=== PATIENT | male | born 1945 | race Caucasian/White ===

== ENCOUNTER 2017-09-11 14:26 | Outpatient (CLI) | payer MEDICARE, BC ==
--- NOTE | 2017-09-11 14:41 | RAD ---
THREE VIEWS OF THE RIGHT WRIST: Date: 09-11-17 History: Pain and swelling. FINDINGS: There is severe degenerative change at the radiocarpal joint with joint space narrowing, subchondral sclerosis and osteophyte formation. There is degenerative change at the first carpal metacarpal joint as well as the distal radial ulnar joint. No displaced fracture or dislocation is seen. There is christophe edwin tilting of the distal radius which may represent a remote a fracture. IMPRESSION: Prominent degenerative change with no displaced fracture or dislocation. If the study was performed i n the setting of trauma and symptoms persist, follow up 7-10 days with dedicated scaphoid views advis ed. POS: [facility]
== END 2017-09-11 14:27 | disposition home or self-care (01) ==
LOC: RAD-FRANK 14:26
PROVIDERS: ATTEND Nurse Practitioner Family
DX: M25.531 Pain in right wrist (principal); M19.031 Primary osteoarthritis, right wrist

== ENCOUNTER 2017-09-25 13:36 | Outpatient (CLI) | payer MEDICARE ==
--- NOTE | 2017-09-25 14:03 | RAD ---
RIGHT WRIST RADIOGRAPH 3 VIEWS: COMPARISON: 09/11/17. CLINICAL HISTORY: Pain, edema. FINDINGS: Redemonstration of prominent degenerative change in the right wrist with joint space loss and osteoph ytosis. There are scattered degenerative cysts. There is a stable heterotopic density interposed be tween the 1st carpal row and the ulnar styloid. No interval acute process is identified. IMPRESSION: Stable appearance of the right wrist without interval displaced fracture. POS: [facility]
== END 2017-09-25 13:37 | disposition home or self-care (01) ==
LOC: RAD-FRANK 13:36
PROVIDERS: ATTEND Nurse Practitioner Family
DX: M25.531 Pain in right wrist (principal)

== ENCOUNTER 2017-10-31 11:50 | Outpatient (CLI) | payer MEDICARE, BC ==
--- NOTE | 2017-10-31 13:46 | ULT ---
RENAL ULTRASOUND: HISTORY: Difficulty urinating. History of benign prostate hyperplasia. FINDINGS: Real-time imaging of the right and left kidneys was performed. The right kidney measures 11.9 and th e left kidney 11.5 cm in size. There is an approximately 2.2 cm right renal cyst present. The bladd er shows a prevoid volume of 272 cc. The postvoid volume is actually calculated at slightly greater than 300 cc. Bilateral ureteral jets are noted. IMPRESSION: 1. A 2.2 x 2.5 cm right renal cyst. No obstruction of either kidney. 2. Marked postvoid residual. POS: [facility]
== END 2017-10-31 11:51 | disposition home or self-care (01) ==
LOC: ULT 11:50
PROVIDERS: ATTEND Urology
DX: N40.1 Benign prostatic hyperplasia with lower urinary tract symptoms (principal); Z87.440 Personal history of urinary (tract) infections; N28.1 Cyst of kidney, acquired
CPT/HCPCS: 76770

== ENCOUNTER 2018-07-23 08:11 | Outpatient (CLI) | payer MEDICARE, BC ==
--- NOTE | 2018-07-23 09:15 | RAD ---
FRONTAL VIEW ABDOMEN KUB: INDICATION: Abdominal bloating with pain and distention. FINDINGS: Upper abdomen is not visualized for comment. There is moderate retained fecal material of the colon. The imaged bowel gas pattern is nonobstructed. There is a round calcification in the left pelvis w hich may relate to phlebolith. Punctate density of the mid to lower left abdomen is not further loca lized. There is osseous degenerative change. IMPRESSION: 1. Moderate retained fecal material of the colon. 2. Imaged bowel gas pattern does not reveal evidence of obstruction. POS: [facility]
== END 2018-07-23 08:12 | disposition home or self-care (01) ==
LOC: RAD-FRANK 08:11
PROVIDERS: ATTEND Nurse Practitioner Family
DX: R14.0 Abdominal distension (gaseous) (principal); K59.00 Constipation, unspecified
CPT/HCPCS: 74018

== ENCOUNTER 2019-06-30 14:29 | Outpatient (CLI) | payer MEDICARE, BC ==
--- NOTE | 2019-06-30 15:49 | RAD ---
SUPINE ABDOMEN: 06/30/19 HISTORY: Abdominal pain. COMPARISON: 07/23/18 abdominal film. Large amount of stool throughout the colon suggests constipation. Small bowel gas pattern unremarkabl e. No mass effect. IMPRESSION: Large volume stool throughout the colon. POS: [facility]
== END 2019-06-30 14:30 | disposition home or self-care (01) ==
LOC: RAD-FRANK 14:29
PROVIDERS: ATTEND Nurse Practitioner Family
DX: R10.9 Unspecified abdominal pain (principal); R19.5 Other fecal abnormalities
CPT/HCPCS: 74018

== ENCOUNTER 2019-07-23 16:19 | Inpatient (IN) | payer MEDICARE, BC ==
[~2019-07-23 16:19] MED LIST: Iopamidol-370 76% 500 ML 1 ML ONE
[2019-07-23] MEDS ORDERED: Acetaminophen 500 MG TAB PO PRN (17:44)
[2019-07-23 18:48] VITALS: BMI 25.4
--- NOTE | 2019-07-23 20:34 | CT ---
CHEST CT WITH CONTRAST ABDOMEN CT WITH CONTRAST PELVIS CT WITH CONTRAST 07/23/19 HISTORY: Rectal cancer. Evaluate for obstruction. Generalized abdominal pain and bloating. FINDINGS: CHEST CT: Lower neck: No mass, lymphadenopathy. Visualized thyroid gland is unremarkable. Mediastinum: No mass, lymphadenopathy or hematoma. Heart: Normal size. No significant pericardial fluid. Aorta: The thoracic and abdominal aorta have a normal caliber. No periaortic fat stranding. Trachea and central bronchi: Patient. Pleural spaces: No pleural effusion. Pneumothorax: None. Right lung: No suspicious masses or consolidation. Left lung: No masses or consolidation. ABDOMEN CT: Portal vein is patent. Unremarkable gallbladder. Liver, spleen, pancreas and adrenal glands have appropriate attenuation and enhancement. No gastric, retrocrural or periportal lymphadenopathy. Symmetric enhancement of the kidneys. Bilaterally, No obstructive uropathy. Incompletely evaluated is odense focus in the medial aspect of the right renal cortex measuring 1.1 x 1.3 cm. Gastric mucosa, duodenum, and multiple small bowel loops are identified. Small bowel loops are at the upper limits of normal proximally. The distal small bowel loops are decompressed and have a normal c aliber. Ileocecal junction is unremarkable. Normal caliber appendix. Cecum, ascending colon, transve rse colon, descending colon, and sigmoid colon do not appear to be distended. There is mucosa thicken ing and irregularity involving the distal sigmoid colon and rectum. There is adjacent fat stranding. CT PELVIS: Unremarkable prostate gland and urinary bladder. There is mild stranding of the perirectal fat. There do appear to be mildly prominent perirectal lymph nodes. Histotechnologist Supervisor enlarged lymph node appears to be approximately 0.8 cm. There is enlarged presacral lymph node measuring 0.6 x 0.6 cm. There are no lytic or blastic lesions in the osseous structures. IMPRESSION: 1. No evidence of bowel obstruction. There are a few scattered nonspecific upper normal caliber proximal small bowel loops. 2. Mucosa thickening involving the distal sigmoid colon and rectum compatible with patient's his tory of rectal cancer. There do appear to be mildly enlarged perirectal and presacral lymph nodes. P ossible solid mass in the medial aspect of the right kidney, incompletely evaluated. Renal mass rudy col CT or abdomen MRI is recommended. POS: [facility]
--- NOTE | 2019-07-23 22:16 | RAD ---
PA AND LATERAL VIEWS OF THE CHEST: 07/23/19 HISTORY: Rectal cancer. FINDINGS: The heart size is normal. No focal areas of consolidation, pneumothoraces, mass or pleural effusions are see with mild compression of a mid thoracic vertebral body. IMPRESSION: No acute process. POS: [facility]
[2019-07-24] MEDS: Enoxaparin Sodium 40 MG/0.4 ML SYRINGE SC SCH (07:53)
[2019-07-24] MEDS ORDERED: FLU VACC TS2019-20(65YR UP)/PF 180 MCG/0.5 ML SYRINGE IM ONE (09:00)
[2019-07-24] MEDS ORDERED: Iron Sucrose Complex 500 MG in Sodium Chloride 0.9% 250 ML 250 ML IVPB SCH (12:15)
[2019-07-24] MEDS ORDERED: Iron, Sodium Ferric Gluconate 250 MG in Sodium Chloride 0.9% 100 ML IVPB SCH ×2 (12:30)
--- NOTE | 2019-07-24 16:58 | CT ---
CT ABDOMEN WITH AND WITHOUT IV CONTRAST: 07/24/19 HISTORY: Right renal mass. FINDINGS: Comparison made with exam of 07/23/19. The 13 mm partially exophytic mass arising from the posterior cortex of the right kidney demonstrates heterogeneous postcontrast enhancement and is a suspicious finding. No calculi seen in the kidneys o r visualized portions of the ureters. No hydroureteronephrosis seen. There is normal contrast excret ion into the pelvicalyceal systems and ureters on both sides. The left kidney is normal. There is vi carious excretion of contrast into the gallbladder. The contrast from the small bowel has moved into the colon. The remainder of the exam is otherwise stable since 07/23/19. IMPRESSION: 13 mm heterogeneously enhancing right renal mass is suspicious for malignancy. POS: [facility]
--- NOTE | 2019-07-24 18:43 | CON ---
DATE OF CONSULTATION: REASON FOR CONSULTATION: Rectal cancer. HISTORY OF PRESENT ILLNESS: Mr. Pérez is a pleasant 74-year-old gentleman, who over the past month, has had some abdominal cramping and diarrhea. He was seen by Dr. Islas and underwent a colonoscopy yesterday in her clinic. He was noted to have a partially-obstructing tumor in the midrectum, 7 cm from the anal verge. The mass was circumferential, infiltrated, and ulcerated. Biopsies were taken and are currently pending. He was then sent to Dr. Gutierrez's office for evaluation and subsequently, admitted here for a partially-obstructing mass. The patient underwent a chest, abdomen, and pelvis CT, which showed no evidence of bowel obstruction. There was mucosal thickening of the distal sigmoid colon and rectum, compatible with the colonoscopy findings. There were some mildly enlarged perirectal and presacral lymph nodes, the largest measuring is 0.8 cm. He also had a focus in the right kidney that was incompletely evaluated. Review of medical records shows a renal ultrasound done in 2018 and characterized this is a right renal cyst. He has lost about 10 pounds over the last several months. He has frequent stools with abdominal cramping and gas. Denies any chest pain or shortness of breath. PAST MEDICAL HISTORY: Diabetes mellitus, type 2. PAST SURGICAL HISTORY: None. ALLERGIES: NO KNOWN DRUG ALLERGIES. HOME MEDICATIONS: 1. Glyburide 5 mg daily. 2. Atorvastatin 10 mg daily. FAMILY HISTORY: No history of colon cancer. SOCIAL HISTORY: , lives with his in [place]. No alcohol, tobacco, or illicit drug use. REVIEW OF SYSTEMS: A 10-point review of systems is negative except for noted in HPI. PHYSICAL EXAMINATION: VITAL SIGNS: Temperature is 97.7, pulse is 53, respiratory rate is 14, blood pressure is 115/63, and he is 97% on room air. GENERAL: This is a well-developed, well-nourished male, in no acute distress. He is hard of hearing. NECK: Supple. CV: Regular rate and rhythm. LUNGS: Clear. ABDOMEN: Soft and nontender. Bowel sounds are positive. EXTREMITIES: No clubbing, cyanosis, or edema. SKIN: No rash. HEMATOLOGIC: No petechiae or purpura. NEUROLOGIC: Nonfocal. PSYCHIATRIC: He is alert, oriented and appropriate. PERTINENT LABORATORY AND DIAGNOSTIC DATA: His creatinine is 1.34, GFR is 52. Recent ferritin is less than 2, TIBC is 439. CEA is 5.43. B12 and folate are normal. His last CBC dated 07/13 showed a hemoglobin of 8.5 and microcytic anemia. Radiology per HPI. ASSESSMENT: 1. Circumferential partially-obstructive rectal mass, consistent with malignancy. 2. Microcytic anemia secondary to gastrointestinal bleed from rectal mass. DISCUSSION: The patient has been admitted for further staging and workup. It appears on the CT scan that he has no metastatic disease. He may need a PET scan in the outpatient setting. Clearly, he has microcytic anemia based on prior labs. I will give him a IV iron today as if he starts oral iron, he will have constipation issues and aggravate his symptoms. He remains on a clear liquid diet. Dr. Gutierrez is managing the patient to determine if the patient needs a diverting colostomy given his partial obstruction. Chemotherapy and radiation were discussed with the patient and family at bedside. They understand the plan. Recheck his CBC in the a.m. and we will follow his hospital course and ultimately, he will be seen in the clinic where he will begin chemoradiation. Thank you for the consult. Job ID: [id number]
--- NOTE | 2019-07-24 19:06 | PRG ---
DATE OF SERVICE: 07/24/2019 Jan Pérez is doing well today. He is tolerating his liquids. He has not had any vomiting. His CEA level is 5.4. CAT scan of the chest, abdomen, and pelvis is unremarkable without metastatic disease except for a 1.5 cm suspicious exophytic mass posterior cortex right kidney. A dedicated renal CT scan was performed substantiating this. The patient has seen Dr. Hernandez in the past and will arrange outpatient followup with Dr. Conrad for this exophytic mass of the right kidney and this will be done as an outpatient. Hence, the patient's echocardiogram is pending. I discussed with the patient these findings and also the patient has discussed with Carmenza Moore, PHYLLIS, Oncology. Plan is for another hour infusing tomorrow and then discharge home on a soft low-fiber diet as he has high-grade partially obstructing rectal tumor. We will arrange outpatient neoadjuvant therapy beginning in early next week, get him to see Dr. Murguia early next week as well as Dr. Bowman to arrange chemoradiation therapy, neoadjuvant therapy. Anticipate discharge home tomorrow. Job ID: [id number]
[2019-07-25 04:38] LABS: Eosinophils 3 % (0-10); Hemoglobin 7.7 g/dL (14.0-18.0); Lymphocytes 73 % (21-51); MDiff Complete? YES; Mean Corpuscular HGB CONC 30.5 g/dL (32.0-36.0); Mean Corpuscular Hemoglobin 20.7 pg (27.0-31.0); Mean Corpuscular Volume 67.6 fL (78.0-98.0); Mean Platelet Volume 10.5 fL (7.4-10.4); Microcytosis MODERATE=15-30 cells (100X) (0-5/hpf); Monocytes 2 % (0-10); Neutrophil 22 % (42-75); Platelet Count 154 thou/uL (130-400); Platelet Morphology Comment Appears Adequate; Red Blood Cell (RBC) Count 3.74 mill/uL (4.70-6.10); White Blood Cell (WBC) Count 7.8 thou/uL (4.8-10.8)
[2019-07-25] MEDS: Enoxaparin Sodium 40 MG/0.4 ML SYRINGE SC SCH (08:32)
[2019-07-25 11:05] VITALS: BP 109/68; TEMP 97.4
--- NOTE | 2019-07-25 15:53 | PRG ---
DATE OF SERVICE: 07/25/2019 Jan Pérez is doing well today. The family is a little put off that they were expecting the iron infusion treatment today. There was miscommunication with Carmenza Moore MP. Apparently, iron therapy was not scheduled today. By the time, I walked into the room, the patient is dressed, IV is out. He is anticipating discharge home. He has a CAT scan of chest, abdomen, and pelvis demonstrated 1.5 cm exophytic posterior right renal cortex mass for which he will follow up with Dr. Conrad. I have already communicated with Dr. Murguia, who will see him as an outpatient. We will have communicated with Dr. Bowman in my office about arranging appointment as soon as possible to initiate radiation therapy. The has a past experience with radiation therapy and is somewhat aware of the radiation therapy protocols. The patient is not totally obstructed. We will try to avoid ostomy. Plan is to discharge home. Echocardiogram is normal. Job ID: [id number]
--- NOTE | 2019-07-25 16:02 | DIS ---
DATE OF ADMISSION: 07/23/2019 DATE OF DISCHARGE: 07/25/2019 DISCHARGE DIAGNOSIS: Rectal cancer. Dr. Islas performed colonoscopy on 07/23, could not pass the scope beyond the rectal mass. Biopsies obtained. The patient however tolerated the bowel prep and radiologically there is not a complete obstruction, although he has lost 10 pounds in the last 3 months. The patient is admitted to expedite his workup, consider if he needs diversion for his obstructive symptoms. The patient was admitted from my office. He underwent CT scan of the abdomen and pelvis as well as chest and there is no evidence of metastatic disease. There is no evidence of metastatic lymphadenopathy. He had a rectal tumor mass. The patient's CEA level is 5.4. His hemoglobin is 7.7. He was given intravenous iron after Carmenza Moore, nurse practitioner saw him. He had an echocardiogram and this is essentially unremarkable, normal ejection fraction, no valvular disease. The patient's CEA level is 5.4. Discussion with the patient revealed that he did not think we need an ostomy at this time due to his high-grade partial obstruction. He will expedite neoadjuvant therapy. I have talked to Dr. Murguia who will see him as soon as possible this week. We will place a MediPort as an outpatient if necessary. He will see Dr. Conrad for a 1.5 cm right renal posterior cortex suspicious mass seen on CAT scan. He had an initial CAT scan and pelvis than a dedicated renal protocol CAT scan. He has seen Dr. Mcguire in the past for prostate problems. The patient was advised to continue low-fiber GI soft diet for which a dietary consult was arranged prior to discharge. He will resume his home medications, diabetic medications, diabetic soft diet. Job ID: [id number]
--- NOTE | 2019-07-25 16:27 | EKG ---
Test Reason : Blood Pressure : / mmHG Vent. Rate : 084 BPM Atrial Rate : 084 BPM P-R Int : 216 ms QRS Dur : 096 ms QT Int : 412 ms P-R-T Axes : 074 -34 026 degrees QTc Int : 486 ms Sinus rhythm with Premature supraventricular complexes Left axis deviation Abnormal ECG No previous ECGs available Confirmed by DR. Margarito HATHAWAY ([id number]) on 07/25/2019 4:27:09 PM Referred By: DWAYNE Confirmed By:DR. Margarito HATHAWAY
== END 2019-07-25 15:33 | disposition home or self-care (01) | DRG 375 ==
LOC: SURG A 16:19 → UNDOADMIN 16:19 → SURG B 16:25
PROVIDERS: ADMIT Specialist; ATTEND Specialist
DX: C20 Malignant neoplasm of rectum (principal); K92.2 Gastrointestinal hemorrhage, unspecified; D63.0 Anemia in neoplastic disease; E11.9 Type 2 diabetes mellitus without complications; Z79.84 Long term (current) use of oral hypoglycemic drugs; Z79.899 Other long term (current) drug therapy
CPT/HCPCS: 36415; 36416; 71046; 71260; 74170; 74177; 82378; 82565; 84134; 85025; 90471; 90662; 93005; 93010; 93306; G0008; J1650; J2916; J3490; Q9967

== ENCOUNTER 2019-07-27 05:32 | Day surgery (SDC) | payer MEDICARE, BC ==
[2019-07-26 13:34] VITALS: BMI 24.1
[2019-07-27] MEDS ORDERED: Fentanyl 100 MCG/2 ML VIAL ONE (06:31)
[2019-07-27] MEDS ORDERED: Lidocaine 2% PF 5 ML VIAL ONE (06:36)
[2019-07-27] MEDS ORDERED: Bupivacaine/Epinephrine 0.5% 10 ML VIAL ONE (06:36)
--- NOTE | 2019-07-27 07:45 | RAD ---
Chest one view HISTORY: Mediport placement. COMPARISON: 07/23/2019. FINDINGS: Cardiac silhouette is magnified by projection. Pulmonary vasculature is unremarkable. Media stinum is midline with a new left subclavian Mediport catheter. Tip overlies the cavoatrial junction. No evidence of pneumothorax. No lobar consolidation. Small amount of contrast material philipp ins within the splenic flexure of the colon. IMPRESSION: New left subclavian Mediport is in good radiographic position. No evidence of complicatio n.
--- NOTE | 2019-07-27 08:45 | OP ---
DATE OF PROCEDURE: 07/27/2019 PREOPERATIVE DIAGNOSIS: Rectal cancer in need of antineoplastic chemotherapy access. POSTOPERATIVE DIAGNOSIS: Rectal cancer in need of antineoplastic chemotherapy access. PROCEDURES PERFORMED: Placement of left subclavian vein low-profile MediPort and fluoroscopy use. ANESTHESIA: Intravenous sedation and local 0.5% Marcaine with epinephrine, 30 mL mixed with 2% Xylocaine 10 mL. DESCRIPTION OF PROCEDURE: The patient was taken to the operating room where under intravenous sedation, neck and chest were clipped of hair, prepared with ChloraPrep and draped in routine fashion. Local anesthetic mixture was infiltrated into the skin and subcutaneous tissue about the operative site. Trocar catheter was cannulated in the subclavian vein in infraclavicular approach. The J-wire threaded, trocar catheter removed. Skin site enlarged sharply, carried down through skin and subcutaneous tissue, creating a subcutaneous pocket with blunt and sharp dissection using cautery for hemostasis. Dilator and Peel-Away sheath placed with J-wire in superior vena cava. Dilator and J-wire removed. Catheter placed through the Peel-Away sheath and Peel-Away sheath removed. Fluoroscopically, catheter tip was placed in optimal position tailored to length and connected to the MediPort, secured in the pocket with interrupted sutures x2 of 3-0 Prolene. Subcutaneous tissue was approximated with 3-0 Monocryl, skin with subdermal 4-0 Monocryl and MediPort accessed with a Collado needle, aspirating blood and flushed with heparinized saline solution. Final fluoroscopic images revealed good line and catheter placement. Job ID: [id number]
[2019-07-27] MEDS ORDERED: PROPOFOL 200 MG/20 ML VIAL ONE (10:05)
== END 2019-07-27 08:40 | disposition home or self-care (01) ==
LOC: SDC 05:32
PROVIDERS: ATTEND Specialist
PROC: 0JH63WZ Insertion of Totally Implantable Vascular Access Device into Chest Subcutaneous Tissue and Fascia, Percutaneous Approach (ICD-10-PCS; principal; 2019-07-27)
DX: C20 Malignant neoplasm of rectum (principal); E11.9 Type 2 diabetes mellitus without complications; M19.90 Unspecified osteoarthritis, unspecified site; K52.9 Noninfective gastroenteritis and colitis, unspecified; Z79.84 Long term (current) use of oral hypoglycemic drugs; Z79.899 Other long term (current) drug therapy
CPT/HCPCS: 36561; 71045; 80053; 82378; 82728; 83540; 83550; C1788; 36415; J0690; J1642; J2001; J2704; J3010; J3490

== ENCOUNTER 2019-09-17 06:10 | Outpatient (CLI) | payer MEDICARE, BC ==
[2019-09-17 12:10] LABS: Hemoglobin 12.2 g/dL (14.0-18.0); Mean Corpuscular HGB CONC 32.1 g/dL (32.0-36.0); Mean Corpuscular Hemoglobin 26.9 pg (27.0-31.0); Mean Corpuscular Volume 83.7 fL (78.0-98.0); Mean Platelet Volume 4.7 fL (7.4-10.4); Platelet Count 143 thou/uL (130-400); RBC Distribution Width 31.5 % (11.5-14.5); Red Blood Cell (RBC) Count 4.53 mill/uL (4.70-6.10); White Blood Cell (WBC) Count 4.9 thou/uL (4.8-10.8)
[2019-09-17 12:37] LABS: Anion Gap 11 mmol/L (10-20); BUN (Urea Nitrogen) 17 mg/dL (8.4-25.7); Calc. Creatinine Clearance 0 mL/min (70-130); Calcium 10.3 mg/dL (7.8-10.44); Carbon Dioxide 27 mmol/L (23-31); Chloride 107 mmol/L (98-107); Estimated GFR-MDRD 58; Glucose 94 mg/dL (83-110); Sodium 141 mmol/L (136-145)
[2019-09-17 12:49] LABS: Bacteria/HPF None Seen HPF (None Seen); Bilirubin Negative (Negative); Blood, Urine 2+ (Negative); Clarity Clear (Clear); Glucose, Urine (Dipstick) Normal (Negative); Leukocyte 75 Leu/uL (Negative); Nitrite Negative (Negative); Protein, Urine (Dipstick) 10 mg/dL (Neg-Trace); RBC/HPF 21-50 HPF (0-3); Urobilinogen Normal mg/dL (Less than 2)
== END 2019-09-17 06:11 | disposition home or self-care (01) ==
LOC: LABBT 06:10
PROVIDERS: ATTEND Urology
DX: Z01.818 Encounter for other preprocedural examination (principal); N40.1 Benign prostatic hyperplasia with lower urinary tract symptoms
CPT/HCPCS: 80048; 81001; 85027; 87086; 93005; 93010

== ENCOUNTER 2019-09-28 06:03 | Day surgery (SDC) | payer MEDICARE, BC ==
[2019-09-17 10:58] VITALS: BMI 24.1
[2019-09-28] MEDS ORDERED: Levofloxacin 500 mg/D5W 100 ml Premix Bag ONE (07:37)
[2019-09-28] MEDS ORDERED: Fentanyl 100 MCG/2 ML VIAL ONE (08:47)
[2019-09-28] MEDS ORDERED: Midazolam HCl 2 mg/2 ml Vial ONE (08:47)
[2019-09-28] MEDS ORDERED: Oxybutynin 5 MG TAB ONE (10:02)
[2019-09-28] MEDS ORDERED: Ketorolac Tromethamine 30 MG/ML VIAL ONE (10:02)
[2019-09-28] MEDS ORDERED: Phenazopyridine HCl 97.5 MG TABLET ONE (10:03)
[2019-09-28] MEDS ORDERED: Lidocaine 1% PF 5 ML VIAL ONE (10:42)
[2019-09-28] MEDS ORDERED: PROPOFOL 200 MG/20 ML VIAL ONE (10:42)
[2019-09-28] MEDS ORDERED: Sodium Chloride 0.9% 100 ML ONE (11:18)
--- NOTE | 2019-09-28 15:34 | OP ---
DATE OF PROCEDURE: 09/28/2019 PREOPERATIVE DIAGNOSIS: Enlarged prostate with lower urinary tract symptoms, urinary retention. POSTOPERATIVE DIAGNOSIS: Enlarged prostate with lower urinary tract symptoms, urinary retention. ANESTHESIA: TIVA. COMPLICATIONS: None. SPECIMEN: None. DESCRIPTION OF PROCEDURE: After informed consent, the patient was taken to the operating room, transferred to the table under his own power. Anesthesia was established. A time-out was performed showing the correct patient, site, and procedure. Preoperative antibiotics were administered. He was prepped and draped in the lithotomy position. A rectal exam was performed showing a 40 g prostate without nodules or induration. I then switched gloves and inserted the 20-Nigerian cystoscope. The bladder was systematically examined, noting moderate trabeculation without mucosal abnormalities or diverticula. The cystoscopy bridge was replaced with the UroLift delivery device. The first treatment site was the patient's left side approximately 2 cm distal to the bladder neck. The distal tip of the delivery device was then angled laterally approximately 20 degrees of this position to compress the lateral lobe. The trigger was pulled, thereby deploying a needle containing the implant through the prostate. The needle was then retracted, allowing one end of the implant to be delivered to the capsular surface of the prostate. The implant was then tensioned to assure capsular seating and removal of slack monofilament. The device was then angled back toward midline and slowly advanced proximally about 3 to 4 mm until cystoscopic verification of the monofilament being centered in the delivery bay. The urethral end piece was then affixed to the monofilament thereby tailoring the size of the implant. Excess filament was then severed. The delivery device was then readvanced into the bladder. This was replaced with the second delivery device, and the same procedure was repeated on the right side near the bladder neck deploying the second implant. Two additional implants, the 3rd and 4th were delivered just proximal to the verumontanum, again one on the right and on the left side of the prostate following the same technique. Cystoscopy was then performed revealing no further obstruction. An excellent anterior channel with the irrigation turned off. At this point, the procedure was completed. Total number of implants used, 4. IMPLANT LOCATION SUMMARY: 1. Implant #1: Left proximal prostatic urethra. 2. Implant #2: Right proximal prostatic urethra. 3. Implant #3: Left distal prostatic urethra proximal to the verumontanum. 4. Implant #4: Right distal prostatic urethra proximal to the verumontanum. CRITERIA MET: The patient with no active UTI. Conservative management has failed and surgical intervention is indicated. Prostate volume 40 g. The patient was then awoken from anesthesia, transferred back to his hospital bed and taken to PACU in stable condition, where he will discharge home upon recovery. Job ID: [id number] [id number]
== END 2019-09-28 11:45 | disposition home or self-care (01) ==
LOC: SDC 06:03
PROVIDERS: ATTEND Urology
PROC: 0T7D8DZ Dilation of Urethra with Intraluminal Device, Via Natural or Artificial Opening Endoscopic (ICD-10-PCS; principal; 2019-09-28)
DX: N40.1 Benign prostatic hyperplasia with lower urinary tract symptoms (principal); R33.8 Other retention of urine; E11.9 Type 2 diabetes mellitus without complications; E78.5 Hyperlipidemia, unspecified; M19.90 Unspecified osteoarthritis, unspecified site; Z79.84 Long term (current) use of oral hypoglycemic drugs; Z79.899 Other long term (current) drug therapy; Z85.048 Personal history of other malignant neoplasm of rectum, rectosigmoid junction, and anus
CPT/HCPCS: C1889; J1642; J1885; J1956; J2250; J3010; J3490

== ENCOUNTER 2019-10-21 06:34 | Outpatient (CLI) | payer MEDICARE, BC ==
[2019-10-21 13:39] LABS: Hemoglobin A1c 5.9 % (4.0-6.0)
[2019-10-21 13:55] LABS: #Basophils 0.1 thou/uL (0.0-0.2); #Eosinphils 0.2 thou/uL (0.0-0.7); #Lymphocytes 2.2 thou/uL (1.20-3.40); #Monocytes 0.3 thou/uL (0.11-0.59); #Neutrophils 2.2 thou/uL (1.40-6.50); %Basophils 1.1 % (0.0-1.0); %Eosinophils 3.1 % (0.0-10.0); %Lymphocytes 45.5 % (21.0-51.0); %Monocytes 6.4 % (0.0-10.0); %Neutrophils 43.9 % (42.0-75.0); Elliptocytes SLIGHT = 2-5 cells (100X) (0-1/hpf); Hemoglobin 13.4 g/dL (14.0-18.0); Large Platelets SLIGHT; MDiff Complete? YES; Mean Corpuscular HGB CONC 32.8 g/dL (32.0-36.0); Mean Corpuscular Hemoglobin 29.9 pg (27.0-31.0); Mean Corpuscular Volume 90.9 fL (78.0-98.0); Mean Platelet Volume 11.2 fL (7.4-10.4); Ovalocytes SLIGHT = 2-5 cells (100X) (0-1/hpf); Platelet Count 158 thou/uL (130-400); Platelet Morphology Comment Appears Adequate; Poikilocytosis SLIGHT = 6-15 cells (100X) (0-5/hpf); Polychromasia SLIGHT = 2-3 cells (100X) (0-2/hpf); RBC Distribution Width 23.3 % (11.5-14.5); Red Blood Cell (RBC) Count 4.49 mill/uL (4.70-6.10); Target Cells SLIGHT = 2-5 cells (100X) (0-1/hpf); Tear Drops SLIGHT = 2-5 cells (100X) (0-1/hpf); White Blood Cell (WBC) Count 4.9 thou/uL (4.8-10.8)
[2019-10-21 14:01] LABS: ALT (SGPT) 13 U/L (8-55); AST (SGOT) 16 U/L (5-34); Albumin 4.1 g/dL (3.4-4.8); Alkaline Phosphatase 106 U/L (40-110); Anion Gap 10 mmol/L (10-20); BUN (Urea Nitrogen) 15 mg/dL (8.4-25.7); Bilirubin, Total 1.7 mg/dL (0.2-1.2); Calc. Creatinine Clearance 0 mL/min (70-130); Calcium 9.8 mg/dL (7.8-10.44); Carbon Dioxide 26 mmol/L (23-31); Chloride 110 mmol/L (98-107); Estimated GFR-MDRD 55; Globulin 2.4 g/dL (2.4-3.5); Glucose 73 mg/dL (83-110); Potassium 3.8 mmol/L (3.5-5.1); Protein, Total 6.5 g/dL (5.8-8.1); Sodium 142 mmol/L (136-145)
== END 2019-10-21 06:35 | disposition home or self-care (01) ==
LOC: LABBT 06:34
PROVIDERS: ATTEND Specialist
DX: Z01.812 Encounter for preprocedural laboratory examination (principal); C20 Malignant neoplasm of rectum
CPT/HCPCS: 80053; 83036; 85025

== ENCOUNTER 2019-10-21 11:00 | Inpatient (IN) | payer MEDICARE, BC ==
--- NOTE | 2019-10-20 07:17 | HP ---
HISTORY OF PRESENT ILLNESS: Beto Montoya is a 74-year-old male patient followed by Dr. Lerma, Dr. Islas, and more recently seen by Dr. Bowman and Dr. Murguia and Dr. Conrad. The patient initially presented 74 years of age, living in [place], accompanied by his and daughter, referred by Dr. Islas because of alteration in his bowel habits and diarrhea for the last year and 11-pound weight loss over the past 3 months. He is a diabetic on metformin and glyburide and oral hypoglycemics changed to glyburide. Hopefully, it resolved his abdominal complaints. He underwent a colonoscopy. Colonoscopy was recommended, but he declined the year prior. He presented with a recent colonoscopy by Dr. Islas performed in July. After two day bowel prep, colonoscopy revealed a rectal cancer 7 cm from the anal verge, circumferential, high-grade obstructing, biopsies obtained and revealed adenocarcinoma. The patient after being seen in my office was having bloating, abdominal distention, and nausea symptoms concerning for obstruction. Dr. Islas was not able to pass a scope beyond the tumor. 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 He was admitted to the hospital and underwent evaluation including CAT scan chest, abdomen, and pelvis on 07/23/2019, revealing absence of a bowel obstruction findings, mucosal thickening of the distal rectosigmoid consistent with rectal cancer, minimally involved lymph nodes of uncertain significance, medial right kidney density. The patient had a renal ultrasound on 10/31/2017, noting a 2.2 x 2.5 cm right renal cyst. CAT scans did not reveal anything suggestive of metastasis. As noted above, on 07/23/2019 rectal biopsy invasive moderately to poorly differentiated adenocarcinoma. CEA level on 07/27/2019 was 4.6. Last hemoglobin 09/17/2019, 12.2, white count 4, and platelet count normal. Last basic metabolic profile 09/17/2019 was unremarkable with normal renal function. The patient has undergone chemoradiation therapy via MediPort that I placed. More recently, he has seen Dr. Conrad. He had problems with urinary retention requiring an in and out catheterization. On September 28, 2019, Dr. Conrad performed treatment of his BPH, relieving his bladder outlet obstruction, performed an UroLift. The patient has been voiding normally since that time. He completed his radiation therapy on September 13, 2019. Plan is that in mid October, plan laparoscopic low anterior resection of rectosigmoid with anastomosis and possible diverting ileostomy under general anesthesia and TAP block. MediPort, which should be use for his IV access and blood draws. He understands risks and benefits and consents. The density in his right kidney is probably the renal cyst, which has been present for some time on past imaging. The patient reports that his obstructive symptoms resolved within 2 to 3 weeks after initiation of his chemoradiation therapy. We were concerned at that time that he might require diversion, but fortunately did not. On exam today, the patient's rectal tumor was felt at the very end of my examining finger on forceful rectal exam, thinking that I probably could feel the most caudal edge of the tumor, but very slightly. ALLERGIES: NONE. SOCIAL HISTORY: Tobacco, none. Alcohol, none. 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 PAST SURGICAL HISTORY: Noncontributory except for his MediPort and UroLift. PAST MEDICAL HISTORY: Diabetes mellitus on oral hypoglycemics, bursitis, arthritis, and rectal cancer. MEDICATIONS: 1. Atorvastatin 10 mg a day. 2. Glyburide 5 mg a day. PHYSICAL EXAMINATION: VITAL SIGNS: 197 pounds and 73 inches. 121/53 and 60 heart rate. HEAD, EARS, EYES, NOSE, AND THROAT: Unremarkable. LUNGS: Clear to auscultation. CARDIAC: Regular rate and rhythm without murmur or gallop. ABDOMEN: Soft and nontender. No masses. No hernias. Groins without lymphadenopathy. EXTREMITIES: Without edema. LYMPHATICS: No lymphadenopathy in neck, groin, or axilla. RECTAL: Reveals questionable palpable tumor at the very end in my examining index finger after forceful exam. ASSESSMENT AND PLAN: 1. Rectal cancer status post neoadjuvant therapy, chemoradiation therapy, normal CEA level. No evidence of metastasis. Plan procedure as indicated above. Risks and benefits discussed. He consents. 2. Status post UroLift by Dr. Conrad. He is no longer having in and out catheterizations. He does wear a brief for some mild incontinence at times, but otherwise, he is doing well from Urological standpoint. 3. Hearing loss. Job ID: [id number]
[2019-10-27] MEDS ORDERED: Ketorolac Tromethamine 30 MG/ML VIAL ONE (06:14)
[2019-10-27] MEDS ORDERED: Gabapentin 300 MG CAP ONE (06:15)
[2019-10-27] MEDS ORDERED: Acetaminophen 500 MG TAB ONE (06:15)
[2019-10-27] MEDS ORDERED: Meropenem 2 GM in Sodium Chloride 0.9% 100 ML IVPB SCH (06:30)
[2019-10-27] MEDS ORDERED: Fentanyl 100 MCG/2 ML VIAL ONE ×3 (06:31→12:48)
[2019-10-27] MEDS ORDERED: Midazolam HCl 2 mg/2 ml Vial ONE (06:31)
[2019-10-27] MEDS ORDERED: Bupivacaine 0.25% HCL 30 ML VIAL ONE ×2 (06:46)
[2019-10-27] MEDS ORDERED: EPINEPHrine 1 MG/ML AMP ONE (06:46)
[2019-10-27] MEDS ORDERED: HYDROmorphone 2 MG/ML VIAL ONE (07:38)
[2019-10-27] MEDS ORDERED: Albumin 5% 500 ML ONE (10:08)
[2019-10-27] MEDS ORDERED: EPHEDRINE 25 MG/5 ML SYRINGE ONE (11:01)
[2019-10-27] MEDS ORDERED: PROPOFOL 200 MG/20 ML VIAL ONE (11:01)
[2019-10-27] MEDS ORDERED: Rocuronium Bromide 10 MG/ML (10ML VIAL) ONE (11:01)
[2019-10-27] MEDS ORDERED: PHENYLEPHRINE-NS 100 MCG/ML 10 ML SYRINGE ONE (11:01)
[2019-10-27] MEDS ORDERED: Lidocaine 1% PF 5 ML VIAL ONE (11:01)
[2019-10-27] MEDS ORDERED: Bupivacaine HCl 0.5%/Epinephrine 1:200,000/PF 30 ml Vial ONE (11:01)
[2019-10-27] MEDS ORDERED: Ondansetron PF 4 MG/2 ML Vial ONE (11:01)
[2019-10-27] MEDS ORDERED: Glycopyrrolate 0.2 MG/ML 5 ML SYRINGE ONE (11:01)
[2019-10-27] MEDS ORDERED: Ondansetron HCl/PF 4 MG/2 ML Vial IVP PRN (12:10)
[2019-10-27] MEDS ORDERED: Promethazine HCl 25 MG/ML VIAL IM PRN (12:10)
[2019-10-27] MEDS ORDERED: Promethazine HCl 25 MG/ML VIAL SLOW IVP PRN (12:10)
[2019-10-27] MEDS ORDERED: hydrALAZINE 20 MG/ML VIAL SLOW IVP PRN (12:21)
[2019-10-27] MEDS ORDERED: Morphine 2 MG/ML SYRINGE SLOW IVP PRN (12:21)
[2019-10-27] MEDS ORDERED: Acetaminophen 500 MG TAB PO PRN (12:26)
[2019-10-27] MEDS ORDERED: Ibuprofen 600 MG TAB PO PRN (12:26)
--- NOTE | 2019-10-27 12:39 | OP ---
DATE OF PROCEDURE: 10/27/2019 PREOPERATIVE DIAGNOSES: 1. Rectal cancer, 7 cm from anal verge, status post radiation and chemotherapy. 2. Diabetic, 74 years old. POSTOPERATIVE DIAGNOSES: 1. Rectal cancer, 7 cm from anal verge, status post radiation and chemotherapy. 2. Diabetic, 74 years old. PROCEDURE PERFORMED: 1. Laparoscopic mobilization of the splenic flexure to left colon. 2. Division of the inferior mesenteric artery with lower midline incision. 3. Completion of low anterior resection. 4. Colorectal cancer resection with low anterior anastomosis, colorectal, 33 mm EEA stapler, checked under water without leak. 5. Protective loop ileostomy in the right lower quadrant. ANESTHESIA: General, TAP block. ESTIMATED BLOOD LOSS: 100 mL. BLOOD TRANSFUSED: None. Preoperative hemoglobin 11. DESCRIPTION OF PROCEDURE: The patient was taken to the operating room, where under general anesthesia and TAP block in the dorsal lithotomy position, abdomen and pelvis were prepared with ChloraPrep and Betadine in the routine fashion. Voss catheter had been placed at the beginning of the procedure and left in place. An infraumbilical incision was made. Pneumoperitoneum to 15 mmHg was obtained with a Veress needle, replaced with a 5 port, video laparoscope inserted placed under laparoscopic visualization. The right lower quadrant incision made and a 12 port placed. Left lower quadrant incision made and a 5 port placed. Left upper quadrant and right upper quadrant incision made and 5 ports placed. The patient was tilted to the right and the peritoneum was scored at the base of the peritoneum overlying the TITA and carried out down into the pelvis adjacent to the peritoneal reflection and posterior to the bladder, identifying the area of the tumor where the peritoneum was puckered. It was puckered anteriorly slightly to the left. Peritoneum just beyond this was incised circumferentially. A medial to lateral dissection undertaken laparoscopically, identifying the inferior mesenteric artery and keeping the ureters identified free of harm. TITA was then divided with the ROBINSON white load stapler and dissection carried up cephalad, mobilizing the splenic flexure. Once splenic flexure was mobilized and the left colon mobilized, the tumor was then dissected free, identifying the left ureter and right ureter, keeping them free of harm. Dissection was carried out in the pelvis. At this point, a lower midline incision was made and a Bookwalter retractor used as the final dissection carried out deep into the pelvis. In the presacral space, mesorectum dissected free using the LigaSure. Lateral stalks dissected free using the LigaSure, keeping the ureters free of harm. Anteriorly, the rectum dissected free from the bladder and prostate, directed posteriorly and a Contour stapler used to divide the mid rectum after skeletonizing the rectum, divided in the adjacent fat with LigaSure and cautery. Once the Contour was fired, the proximal sigmoid colon was dissected free and divided with the ROBINSON stapler. I had adequate colon to reach into the pelvis, tensioned free. At this point, specimen was submitted to Pathology. Suture placed on the proximal margin. There was a slight serosal tear and a small segment of more proximal colon excised about 4 cm and the colon opened and a pursestring suture of 2-0 Prolene placed and a 33 mm anvil lubricated then held in place with a pursestring suture. Fatty tissue cleared to facilitate a good anastomosis serosa of the proximal colon and the muscle layer of the rectum. At this point, my permit review assistant placed dilators serially, dilating the anus and rectum and then placed a 30-mm EEA stapler into the rectum, visualizing the staple line and skeletonizing some fatty tissue for good anastomosis. The post advanced out the staple line, visualized directly, and then connected to the proximal anvil, and after assuring the colon was oriented properly, anastomosis formed by approximating the colorectal anastomosis within the torque fire range, and after a brief pause, the stapler was fired, loosened, and removed, intact donuts removed and distal donuts submitted for the distal margin. The specimen had been opened at the staple line. There appeared to be adequate margins. Colorectal anastomosis was checked under water with the permit review assistant inserting the proctoscope, inflated to the colorectal anastomosis with air under water and there was no leak. Our gloves and instruments were changed. All instruments were removed and clean instruments obtained. Abdominal cavity irrigated. Good hemostasis noted. The terminal ileum was mobilized from the peritoneal reflection and then brought out through a circular defect of skin in the right lower quadrant after making a cruciate incision in the anterior rectus sheath and completing the rectus muscle medial and laterally to bring the ileum through this for a loop ileostomy. At this point, sponge and needle counts were correct. Midline fascia closed with continuous suture of #1 PDS, skin and subcutaneous tissues irrigated, and gloves changed. Skin approximated with continuous suture of 4-0 Monocryl. Trocar sites approximated with subdermal 4-0 Monocryl and [place] glue applied. Ileostomy maturation undertaken by making a longitudinal ileostomy and four-quadrant Camilo sutures 3-0 Vicryl placed and simple suture of 3-0 Vicryl, completed maturation. Stoma applied and the ileostomy appliance secured. The patient tolerated the procedure well. Voss catheter was placed. Job ID: [id number]
[2019-10-27] MEDS: Lactated Ringer's 1,000 ML IV SCH ×2 (14:00→22:38)
[2019-10-27] MEDS ORDERED: Polyethylene Glycol 3350 17 GM Packet PO PRN (14:17)
[2019-10-27] MEDS ORDERED: Pseudoephedrine HCl 30 MG TAB PO PRN (14:17)
[2019-10-27] MEDS: Ketorolac Tromethamine 30 MG/ML VIAL IVP SCH ×2 (17:07→23:50)
[2019-10-27] MEDS: Morphine 4 MG/ML VIAL SLOW IVP PRN (18:41)
[2019-10-27] MEDS: Enoxaparin Sodium 40 MG/0.4 ML SYRINGE SC SCH (20:20)
[2019-10-27] MEDS: Famotidine 20 MG TAB PO SCH (20:20)
[2019-10-27] MEDS: Tamsulosin HCl 0.4 MG CAP PO SCH (20:21)
[2019-10-27] MEDS: Gabapentin 300 MG CAP PO SCH (20:21)
[2019-10-28] MEDS: Morphine 4 MG/ML VIAL SLOW IVP PRN ×2 (01:44→10:23)
[2019-10-28] MEDS: Ketorolac Tromethamine 30 MG/ML VIAL IVP SCH ×4 (06:00→23:06)
[2019-10-28] MEDS: Lactated Ringer's 1,000 ML IV SCH ×2 (06:07→14:44)
[2019-10-28 06:21] LABS: Hemoglobin 11.5 g/dL (14.0-18.0); Mean Corpuscular HGB CONC 32.2 g/dL (32.0-36.0); Mean Corpuscular Hemoglobin 29.4 pg (27.0-31.0); Mean Corpuscular Volume 91.4 fL (78.0-98.0); RBC Distribution Width 21.6 % (11.5-14.5); Red Blood Cell (RBC) Count 3.92 mill/uL (4.70-6.10)
[2019-10-28 06:30] LABS: Anion Gap 10 mmol/L (10-20); BUN (Urea Nitrogen) 13 mg/dL (8.4-25.7); Calc. Creatinine Clearance 0 mL/min (70-130); Calcium 8.9 mg/dL (7.8-10.44); Carbon Dioxide 22 mmol/L (23-31); Chloride 108 mmol/L (98-107); Estimated GFR-MDRD 73; Glucose 93 mg/dL (83-110); Sodium 136 mmol/L (136-145)
[2019-10-28 07:09] LABS: #Lymphocytes 0.9 thou/uL (1.20-3.40); #Monocytes 0.1 thou/uL (0.11-0.59); #Neutrophils 1.7 thou/uL (1.40-6.50); %Basophils 0.8 % (0.0-1.0); %Eosinophils 0.5 % (0.0-10.0); %Lymphocytes 32.3 % (21.0-51.0); %Monocytes 4.7 % (0.0-10.0); %Neutrophils 61.7 % (42.0-75.0); MDiff Complete? YES; Mean Platelet Volume 4.7 fL (7.4-10.4); Ovalocytes SLIGHT = 2-5 cells (100X) (0-1/hpf); Platelet Count 105 thou/uL (130-400); Platelet Morphology Comment Appears Decreased; Polychromasia SLIGHT = 2-3 cells (100X) (0-2/hpf); Reflex for Review?? YES; Small Platelets MODERATE; White Blood Cell (WBC) Count 2.7 thou/uL (4.8-10.8)
[2019-10-28] MEDS: Famotidine 20 MG TAB PO SCH ×2 (09:22→20:17)
[2019-10-28] MEDS: traMADol HCl 50 MG TAB PO PRN ×2 (09:23→18:12)
[2019-10-28] MEDS: Glimepiride 4 MG TAB PO SCH (09:23)
[2019-10-28] MEDS: Atorvastatin Calcium 10 MG TAB PO SCH (09:23)
[2019-10-28] MEDS: Gabapentin 300 MG CAP PO SCH ×2 (09:23→20:17)
[2019-10-28] MEDS ORDERED: traMADol HCl 50 MG TAB PO SCH (12:45)
--- NOTE | 2019-10-28 18:45 | PRG ---
DATE OF SERVICE: 10/28/2019 SUBJECTIVE: Jan Pérez is doing well today. He is one day status post laparoscopic mobilization of the splenic flexure, descending colon, rectosigmoid resection for rectal cancer with preoperative neoadjuvant therapy, radiation and chemotherapy. He had a colorectal anastomosis 33 mm EEA stapler, checked under water without leak, but a protective diverting ileostomy loop type was placed. The patient preoperatively has had in- and out cathed himself. UroLift a month ago, and has been voiding spontaneously. Postoperatively, his catheter was removed this morning, and he is due to void. Pathology is of course still pending. The patient's pain control is very good after a TAP block and general anesthesia. He is tolerating full liquids. He has had some liquid stool in his ileostomy, but no significant flatus. He reports some mild gas distention. OBJECTIVE: VITAL SIGNS: Temperature 98.8 degrees, pulse 76, blood pressure 109/65. Urine output overnight 850 mL. He is saline locked at this time. This morning, his white count is 2.7, hemoglobin 11.5. His sodium 136, potassium 4.0, BUN 13, creatinine 1.1. Accu-Cheks 111 to 131. LUNGS: Clear to auscultation. CARDIAC: Regular rate and rhythm without murmur or gallop. ABDOMEN: Soft, mild gaseous distention and tympany. Ileostomy healthy with some ileostomy stool in the bag. ASSESSMENT AND PLAN: 1. Status post surgical resection of rectal cancer and sigmoid anastomosis with protected diverting ileostomy. Continue observation. Continue full liquids. Await better GI function prior to advancing diet. 2. Teach ileostomy care. Anticipate he may be discharged home educational video. Wound Care will provide ileostomy stoma care. 3. History of bladder outlet obstruction, status post UroLift. The patient is due to void. Job ID: [id number]
[2019-10-28] MEDS: Tamsulosin HCl 0.4 MG CAP PO SCH (20:17)
[2019-10-28] MEDS: Enoxaparin Sodium 40 MG/0.4 ML SYRINGE SC SCH (20:17)
[2019-10-29] MEDS ORDERED: Dextrose 50% Abboject 50 ML SYRINGE ONE (04:45)
[2019-10-29] MEDS: Ketorolac Tromethamine 30 MG/ML VIAL IVP SCH ×3 (06:04→17:43)
[2019-10-29] MEDS: traMADol HCl 50 MG TAB PO PRN (09:03)
[2019-10-29] MEDS: Atorvastatin Calcium 10 MG TAB PO SCH (09:03)
[2019-10-29] MEDS: Famotidine 20 MG TAB PO SCH ×2 (09:03→21:21)
[2019-10-29] MEDS: Gabapentin 300 MG CAP PO SCH ×2 (09:04→21:21)
[2019-10-29] MEDS: Glimepiride 4 MG TAB PO SCH (09:06)
--- NOTE | 2019-10-29 18:23 | PRG ---
DATE OF SERVICE: 10/29/2019 SUBJECTIVE: He is doing well today. He is passing some stool out of his ileostomy, but not much flatus. He is having some abdominal distention. OBJECTIVE: VITAL SIGNS: Temperature 98.4 degrees, heart rate 100, blood pressure 119/73. LUNGS: Clear to auscultation. CARDIAC: Regular rate and rhythm without murmur or gallop. ABDOMEN: Soft, mildly distended, . Diminished bowel sounds. LABORATORY DATA: None. Pathology pending. ASSESSMENT AND PLAN: Status post laparoscopic-assisted splenic flexure mobilization, left colon mobilization, and sigmoid-rectal resection for rectal cancer after neoadjunctive chemoradiation therapy preoperatively. The patient is doing well. Ileostomy is healthy. Awaiting bowel function. Expect discharge home over the weekend. Continue supportive care at this point. Job ID: [id number]
[2019-10-29] MEDS: Ondansetron PF 4 MG/2 ML Vial IVP PRN (20:20)
[2019-10-29] MEDS: Enoxaparin Sodium 40 MG/0.4 ML SYRINGE SC SCH (21:21)
[2019-10-29] MEDS: Tamsulosin HCl 0.4 MG CAP PO SCH (21:22)
[2019-10-30] MEDS: Ketorolac Tromethamine 30 MG/ML VIAL IVP SCH ×4 (00:56→18:54)
[2019-10-30] MEDS ORDERED: Sodium Chloride 0.9% 1,000 ML IV SCH ×3 (01:15→17:45)
[2019-10-30] MEDS: Lactated Ringer's 1,000 ML IV SCH ×2 (02:14→12:26)
[2019-10-30 06:11] LABS: Mean Corpuscular HGB CONC 34.5 g/dL (32.0-36.0); Mean Corpuscular Hemoglobin 31.3 pg (27.0-31.0); Mean Corpuscular Volume 90.8 fL (78.0-98.0); Mean Platelet Volume 10.1 fL (7.4-10.4); Platelet Count 102 thou/uL (130-400); RBC Distribution Width 20.2 % (11.5-14.5); Red Blood Cell (RBC) Count 3.53 mill/uL (4.70-6.10); White Blood Cell (WBC) Count 2.4 thou/uL (4.8-10.8)
[2019-10-30] MEDS ORDERED: Dextrose 50% Abboject 50 ML SYRINGE ONE (06:24)
[2019-10-30] MEDS ORDERED: Dextrose 5% in Water 1,000 ML IV PRN (06:36)
[2019-10-30 06:58] LABS: Anisocytosis SLIGHT = 6-15 cells (100X) (0-5/hpf); Band 33 % (5-11); Lymphocytes 28 % (21-51); MDiff Complete? YES; Metamyelocyte 5 % (0-0); Monocytes 17 % (0-10); Neutrophil 15 % (42-75); Ovalocytes SLIGHT = 2-5 cells (100X) (0-1/hpf); Platelet Morphology Comment Appears Decreased; Polychromasia SLIGHT = 2-3 cells (100X) (0-2/hpf); Reactive Lymphocytes 1 % (0-10); Vacuoles SLIGHT
[2019-10-30] MEDS: Atorvastatin Calcium 10 MG TAB PO SCH (10:01)
[2019-10-30] MEDS: Gabapentin 300 MG CAP PO SCH (10:01)
[2019-10-30] MEDS: Famotidine 20 MG TAB PO SCH (10:01)
[2019-10-30] MEDS: Glimepiride 4 MG TAB PO SCH (10:07)
[2019-10-30] MEDS: Dextrose 50% Abboject 50 ML SYRINGE IVP PRN ×2 (12:23→21:04)
[2019-10-30] MEDS: Ondansetron PF 4 MG/2 ML Vial IVP PRN (13:22)
[2019-10-30] MEDS: traMADol HCl 50 MG TAB PO PRN (13:22)
[2019-10-30] MEDS ORDERED: Sodium Chloride 0.9% 500 ML IV SCH (16:45)
[2019-10-30] MEDS ORDERED: Dextrose 5 %-0.45 % NaCl 1,000 ML IV SCH (17:15)
[2019-10-30 17:16] LABS: Anion Gap 12 mmol/L (10-20); BUN (Urea Nitrogen) 32 mg/dL (8.4-25.7); Calc. Creatinine Clearance 0 mL/min (70-130); Calcium 8.8 mg/dL (7.8-10.44); Carbon Dioxide 19 mmol/L (23-31); Chloride 94 mmol/L (98-107); Estimated GFR-MDRD 34; Glucose 61 mg/dL (83-110); Potassium 4.8 mmol/L (3.5-5.1); Sodium 120 mmol/L (136-145)
--- NOTE | 2019-10-30 17:19 | PRG ---
DATE OF SERVICE: A 74-year-old male patient, 3 days status post laparoscopic-assisted left colon resection, rectal resection, colorectal anastomosis, diverting protective ileostomy, has had some liquid stool out of his ileostomy, but no flatus. He has developed progressive distention, tympany, anorexia. He is having problems with hypoglycemia. He had problems with hypertension last night as he had been saline locked and he was given fluid boluses and IV fluid restarted. His blood pressure has improved. His heart rate is normal. 98.1 degrees, 96, 18, 117/69 currently. His last basic met was 10/28/2019. His hemoglobin this morning is 11, white count 2.4, yesterday white count was 2.7, platelet count 102,000, 33% bands today. OBJECTIVE: LUNGS: Clear to auscultation. CARDIAC: Regular rate and rhythm. No murmur or gallop. ABDOMEN: Distended tympanitic. His abdomen is without peritoneal signs. His midline wound is well healed. The ostomy is healthy. He was probed. The fascia is tight, but when I probed his ileostomy I am unable to passed my finger beyond the fascia and there is no escape of air or fluid. EXTREMITIES: Unremarkable. The patient has a history of neurogenic bladder, undergoing a UroLift after which he was able to initially cut back his in and out caths and then discontinue his in and out Caths, but initially in this hospitalization the patient had a Voss postoperatively. It was removed the next day. He in and out cathed on one occasion for 500 mL residual after a bladder scan revealed only 250. He has had bladder scans of only 200 since that time. With his previous urination problems, we may need to place a Voss at this time. ASSESSMENT/PLAN: 1. History of urinary retention status post UroLift with above-mentioned factors. Plan Voss catheter. 2. Ileus. Nasogastric tube placement. Abdominal x-rays to confirm and evaluate bowel gas pattern. We will do these in the department. 3. Dehydration, suspect acute kidney injury. Check basic metabolic profile, fluid bolus, increase intravenous fluid rate. Change fluids to D5 due to hypoglycemia problems. 4. Rectal cancer, status post resection. Job ID: [id number]
[2019-10-30] MEDS ORDERED: Ketorolac Tromethamine 30 MG/ML VIAL IVP PRN (17:31)
--- NOTE | 2019-10-30 18:18 | RAD ---
Chest one view Abdomen 2 views HISTORY: Abdominal surgery. Nasogastric tube placement. FINDINGS: Cardiac silhouette is magnified and partially obscured by bilateral hemidiaphragm elevation and shallow inspiration. Pulmonary vasculature is upper limits of normal. Mediastinum is midline. Nasogastric tube descends to the stomach. Tip of a left subclavian Port-A-Cath projects over the supe rior vena cava. Mild bibasilar atelectasis. No lobar consolidation or evidence of pneumothorax. Free air under the hemidiaphragms on the upright views consistent with recent surgery. Tip of the emmy ogastric type catheter projects over the gastric antrum. Circular opaque device over the right lower quadrant is consistent with the recently placed ostomy. Suture rows and hemostasis clips projec t over the pubic symphysis. Mild gaseous distention of the stomach and small bowel. IMPRESSION: Recent postoperative changes of the abdomen. Tip of the nasogastric catheter projects ove r the gastric antrum. Some gaseous distention of the stomach and bowel persists. Borderline pulmonary vascular congestion.
[2019-10-30] MEDS: Dextrose 5 % And 0.9 % NaCl 1,000 ML IV SCH (18:54)
[2019-10-30] MEDS: Tamsulosin HCl 0.4 MG CAP PO SCH (20:47)
[2019-10-30] MEDS: Enoxaparin Sodium 40 MG/0.4 ML SYRINGE SC SCH (20:47)
[2019-10-31] MEDS: Dextrose 50% Abboject 50 ML SYRINGE IVP PRN ×3 (01:09→16:41)
[2019-10-31] MEDS: Dextrose 5 % And 0.9 % NaCl 1,000 ML IV SCH ×5 (01:10→20:04)
[2019-10-31 05:31] LABS: Anion Gap 12 mmol/L (10-20); BUN (Urea Nitrogen) 34 mg/dL (8.4-25.7); Calc. Creatinine Clearance 0 mL/min (70-130); Calcium 8.2 mg/dL (7.8-10.44); Carbon Dioxide 19 mmol/L (23-31); Chloride 96 mmol/L (98-107); Estimated GFR-MDRD 36; Glucose 93 mg/dL (83-110); Magnesium 1.8 mg/dL (1.6-2.6); Potassium 4.5 mmol/L (3.5-5.1); Sodium 122 mmol/L (136-145)
[2019-10-31 05:52] LABS: Band 30 % (5-11); Crenated RBC SLIGHT = 1-5 cells (100X) (None Seen); Elliptocytes SLIGHT = 2-5 cells (100X) (0-1/hpf); Eosinophils 2 % (0-10); Hemoglobin 10.3 g/dL (14.0-18.0); Lymphocytes 26 % (21-51); MDiff Complete? YES; Mean Corpuscular HGB CONC 35.2 g/dL (32.0-36.0); Mean Corpuscular Hemoglobin 31.9 pg (27.0-31.0); Mean Corpuscular Volume 90.6 fL (78.0-98.0); Mean Platelet Volume 11.3 fL (7.4-10.4); Metamyelocyte 1 % (0-0); Monocytes 26 % (0-10); Myelocyte 2 % (0-0); Neutrophil 12 % (42-75); Platelet Count 85 thou/uL (130-400); Platelet Morphology Comment Appears Decreased; RBC Distribution Width 20.2 % (11.5-14.5); Red Blood Cell (RBC) Count 3.24 mill/uL (4.70-6.10); White Blood Cell (WBC) Count 1.7 thou/uL (4.8-10.8)
[2019-10-31] MEDS ORDERED: PROPOFOL 200 MG/20 ML VIAL ONE (08:53)
[2019-10-31] MEDS ORDERED: PHENYLEPHRINE-NS 100 MCG/ML 10 ML SYRINGE ONE (08:53)
[2019-10-31] MEDS ORDERED: Rocuronium Bromide 10 MG/ML (10ML VIAL) ONE (08:53)
[2019-10-31] MEDS ORDERED: EPHEDRINE 25 MG/5 ML SYRINGE ONE (08:53)
[2019-10-31] MEDS ORDERED: Lidocaine 1% PF 5 ML VIAL ONE (08:53)
[2019-10-31] MEDS ORDERED: Ondansetron PF 4 MG/2 ML Vial ONE (08:53)
[2019-10-31] MEDS ORDERED: Dexamethasone 20 MG/5 ML VIAL ONE (08:53)
[2019-10-31] MEDS ORDERED: Succinylcholine Chloride 20 MG/ML 10 ml SYRINGE FS ONE (08:53)
[2019-10-31] MEDS: Pantoprazole 40 MG VIAL IVP SCH (09:44)
[2019-10-31] MEDS: Atorvastatin Calcium 10 MG TAB PO SCH (09:44)
--- NOTE | 2019-10-31 11:48 | RAD ---
ABDOMEN TWO VIEWS: HISTORY: Follow up ileus. COMPARISON: 10/30/2019 FINDINGS: NG tube in place. Evidence for free intraperitoneal air. Right sided ostomy. There is some minimal pe rsistent air-fluid levels within large and small bowel, nonspecific, but this certain could be consis tent with some ileus. No evidence to suggest significant high-grade obstruction. IMPRESSION: Some persistent air-fluid levels in small bowel and colon without overt high grade obstruction. Constance nued short-term followup. POS: JIMBO
[2019-10-31] MEDS ORDERED: Iopamidol 370 76% 50 ML VIAL FS ONE (13:46)
[2019-10-31] MEDS ORDERED: Sodium Chloride 0.9% 1,000 ML IV SCH (15:15)
--- NOTE | 2019-10-31 16:05 | PRG ---
DATE OF SERVICE: 10/31/2019 SUBJECTIVE: Mr. Pérez is four days status post left colon resection, colorectal resection of rectal cancer with protective diverting ileostomy after 33 mm EEA stapler, checked under water without leak. The patient remains afebrile. He continues to have abdominal distention. OBJECTIVE: VITAL SIGNS: Temperature 97.3 degrees, pulse 105, blood pressure 125/77, saturation is 94%. LUNGS: Clear to auscultation. No wheezing. As he ventilates, he does has some wheezing sounds from his nares, but none from his lungs. CARDIAC: Regular rate and rhythm. ABDOMEN: Soft, distended, tympanitic. Mildly tender left abdomen seemingly more than right. Bowel sounds present. Perhaps for hyperactive. EXTREMITIES: Unremarkable. Yesterday's ileostomy was probed and seen to be tight at the fascia. He had 3.3 L out of his NG tube since placement yesterday. Voss catheter has been placed. He had 900 mL out. It is less concentrated today. The patient this morning's hemoglobin is 10, white count 1.7, left shift, 30 bands, 33 bands yesterday. Sodium 122 today, potassium 4.5, chloride 96, carbon dioxide 19, BUN 34, creatinine 1.87. Yesterday BUN 32, yesterday creatinine 1.93, slightly improved. The patient is on normal saline IV. He has had normal saline boluses. His glucoses have been low despite D5 normal saline IV fluids. We will add D10. ASSESSMENT AND PLAN: 1. Dehydration, improved with hydration. Give him another liter of IV fluid. 2. Hypoglycemia. Add D10W to his D5 normal saline regimen. 3. Abdominal tenderness postop. We will obtain a CT scan without oral without IV contrast but with rectal contrast to check his colorectal anastomosis and to look at his small gas pattern. 4. Pain is supportive care. Consideration for revising his ileostomy versus laparotomy given pending CT scan results. His plain abdominal x-rays reveal some air-fluid levels, but did not reveal anything definitive. Job ID: [id number]
[2019-10-31] MEDS ORDERED: Dextrose 50% Abboject 50 ML SYRINGE ONE (16:37)
[2019-10-31] MEDS: Dextrose 10% in Water 1,000 ML IV SCH (17:19)
--- NOTE | 2019-10-31 18:46 | CT ---
CT abdomen and pelvis noncontrast HISTORY: Abdominal pain. Recent partial colectomy and right ileostomy. COMPARISON: 07/24/2019. FINDINGS: Images of the pelvis were obtained before and after administration of rectal contrast. Abdo men was imaged after administration of rectal contrast. Small amount of bilateral pleural fluid and dependent atelectasis at the lung bases. Small amount of fluid and gas throughout the abdomen and pelvis from recent surgery. Gas is also pres ent within the subcutaneous tissues of the right upper quadrant. Radiopaque suture row at the rectum. No evidence of contrast leak. Small amount of free fluid is pres ent within the pelvis. Urinary bladder decompressed by Voss catheter. Centered at the superficial aspect of the right upper anterior abdomen, a large crescentic gas and fl uid collection measures up to 14.9 cm length by 17.4 cm depth by 5.5 cm width. It immediately underlies the right lateral abdominal wall and compresses the underlying small bowel and right colon. The inferior margin approaches but does not extend into the ileostomy site in the right abdomen. Nasogastric tube is in place. Metallic beads at the prostate bed. There are prominent degenerative ch anges lumbar spine. Mass at the posterior aspect of the right kidney is faintly visualized. IMPRESSION: Large gas and fluid collection at the anterolateral right abdomen, effacing the underlyin g small bowel and large bowel. It is near but does not extend into the right abdominal ostomy site. Favored to be postoperative. CT-guided drainage is pending. Rectal surgical anastomosis is intact. Significant gas and fluid remaining throughout the abdomen and pelvis from recent surgery. Findings were called to Dr. Gutierrez at the time of the exam.
[2019-10-31] MEDS ORDERED: Piperacillin/Tazobactam 3.375 GM in Sodium Chloride 0.9% 100 ML IVPB SCH (19:45)
[2019-10-31] MEDS: Enoxaparin Sodium 40 MG/0.4 ML SYRINGE SC SCH (20:02)
--- NOTE | 2019-10-31 20:16 | PRG ---
DATE OF SERVICE: 10/31/2019 SUBJECTIVE: Mr. Pérez has had a CT scan today. His CT scan demonstrated that his colorectal anastomosis is intact and there is no leak. This contrast was done without IV and without p.o. contrast as he has a mild [place] secondary to dehydration. He has been aggressively hydrated. CT scan did demonstrate a superior and lateral parastomal fluid collection with air, and some mildly dilated loops of small bowel next to the ileostomy. Remainder of abdominal contents looked normal on this noncontrast CT scan. The patient is hallucinating, although communicative. He has remained afebrile. OBJECTIVE: VITAL SIGNS: Heart rate 105, respiratory rate 18, blood pressure 135/78. ABDOMEN: Distended, tympanitic, and mildly tender. ASSESSMENT/PLAN: I have discussed with Radiology, personally reviewed his CT scans with Radiology, and discussed with the patient and his . Plan is to go to the operating room this evening on 10/31/2019 for revision of his ileostomy, possible laparotomy, and indicated procedures well as a central line. Postoperatively, he may remain on the ventilator or go to [facility]. We will see how he fares. Job ID: [id number]
--- NOTE | 2019-10-31 21:10 | PRG ---
DATE OF SERVICE: 10/31/2019 The patient's CAT scan demonstrates fluid collection lateral to the ileostomy. With his clinical behavior and laboratory profiles and exam, ileus I suspect he may have as enteric leak. Plan is to evaluate his ileostomy in the operating room, possible laparotomy. I feel that this is emergency and needs to be done tonight. I have discussed that with Anesthesia and we will proceed tonight. Job ID: [id number]
[2019-10-31] MEDS ORDERED: Fentanyl 100 MCG/2 ML VIAL ONE (22:48)
[2019-10-31] MEDS ORDERED: Sodium Chloride 0.9% 30 ML ONE (22:55)
[2019-11-01] MEDS ORDERED: Ventilator Sedation Protocol 1 EACH FS SCH (00:30)
[2019-11-01] MEDS ORDERED: fentaNYL Citrate/PF 2,000 MCG in Sodium Chloride 0.9% 60 ML IV SCH (00:33)
[2019-11-01] MEDS ORDERED: DISCONTINUE PREVIOUS NARCOTIC PAIN MEDICATIONS AND BENZODIAZEPINES FS SCH (00:33)
[2019-11-01] MEDS ORDERED: Fentanyl BOLUS 250 ML IVPB PRN (00:33)
[2019-11-01] MEDS ORDERED: Lorazepam 2 MG/ML VIAL SLOW IVP PRN (00:33)
[2019-11-01] MEDS ORDERED: Propofol BOLUS 1,000 MG/100 ML VIAL IV PRN (00:33)
[2019-11-01 00:55] LABS: Base Excess (BEa) -9.8 mEq/L (-2.0 to +3.0); CO2 Tension 40.9 mmHg (35.0-45.0); Calcium, Ionized 1.13 mmol/L (1.12-1.30); Carboxyhemoglobin (COHb) 0.9 gm% (0.0-3.0); Hemoglobin (Hb) 9.4 g/dL (14.0-18.0); O2 Tension (PaO2) 83.9 mmHg (> 70.0); Potassium - ABG Lab 3.88 mmol/L (3.70-5.30)
[2019-11-01 00:56] LABS: pH, Arterial 7.24 (7.35-7.45)
[2019-11-01 00:57] LABS: ALV-art Gradient 292.775 (0-20); Puncture Site R BRACHIAL
[2019-11-01] MEDS: Piperacillin/Tazobactam 3.375 GM in Sodium Chloride 0.9% 100 ML IVPB SCH ×4 (02:22→17:31)
[2019-11-01] MEDS: Dextrose 5 % And 0.9 % NaCl 1,000 ML IV SCH ×3 (02:24→17:32)
[2019-11-01 03:42] LABS: Band 20 % (5-11); Eosinophils 1 % (0-10); Hemoglobin 9.8 g/dL (14.0-18.0); Lymphocytes 24 % (21-51); MDiff Complete? YES; Mean Corpuscular HGB CONC 34.2 g/dL (32.0-36.0); Mean Corpuscular Hemoglobin 31.5 pg (27.0-31.0); Mean Corpuscular Volume 92.1 fL (78.0-98.0); Mean Platelet Volume 10.7 fL (7.4-10.4); Monocytes 23 % (0-10); Neutrophil 32 % (42-75); Platelet Count 61 thou/uL (130-400); Platelet Morphology Comment Appears Decreased; RBC Distribution Width 20.4 % (11.5-14.5); Red Blood Cell (RBC) Count 3.12 mill/uL (4.70-6.10); White Blood Cell (WBC) Count 3.3 thou/uL (4.8-10.8)
[2019-11-01 03:44] LABS: Phosphorus 3.1 mg/dL (2.3-4.7)
[2019-11-01 03:48] LABS: Anion Gap 13 mmol/L (10-20); BUN (Urea Nitrogen) 31 mg/dL (8.4-25.7); Calc. Creatinine Clearance 57 mL/min (70-130); Calcium 7.7 mg/dL (7.8-10.44); Carbon Dioxide 15 mmol/L (23-31); Chloride 102 mmol/L (98-107); Estimated GFR-MDRD 46; Glucose 245 mg/dL (83-110); Magnesium 1.8 mg/dL (1.6-2.6); Potassium 4.3 mmol/L (3.5-5.1); Sodium 126 mmol/L (136-145)
--- NOTE | 2019-11-01 03:58 | OP ---
DATE OF PROCEDURE: 10/31/2019 PREOPERATIVE DIAGNOSES: Four days status post laparoscopic-assisted left colon low anterior resection for rectal cancer with protective ileostomy, now with a sepsis and suspect enteric leak. POSTOPERATIVE DIAGNOSES: Four days status post laparoscopic-assisted left colon low anterior resection for rectal cancer with protective ileostomy, now with a sepsis and suspect enteric leak with small bowel enterotomy and feculent peritonitis. PROCEDURES PERFORMED: Placement of right subclavian vein triple-lumen catheter, exploratory laparotomy, abdominal washout, ABThera placement, resection of small bowel, closure of enterotomy. ANESTHESIA: General. DESCRIPTION OF PROCEDURE: The patient was taken to the operating room, where under general anesthesia, right farshad-clavicular prepared with ChloraPrep and draped in routine fashion. Seldinger technique used to place a triple-lumen catheter, securing it with 3-0 silk suture, removing the J-wire, aspirated each port of blood, and flushed with saline solution. Sterile dressing applied. The abdomen was prepared with ChloraPrep and draped in routine fashion. I first took down the ileostomy. I did enlarge the rectus sheath. It seemed a little tight, but there was no significant drainage until I released the inner peritoneum and then there was some feculent small bowel appearing drainage. I inspected the small bowel and there did not appear to be any violation of small bowel adjacent to the diverting ileostomy. For this reason, a midline laparotomy undertaken after suction had been placed, evacuating enteric fluid about a 1 L from the right abdomen. On entering the abdominal cavity, there was of the small bowel, non-foul smelling indicative of small bowel leak. The patient has had a prior CAT scan of the abdomen and pelvis with rectal contrast noting the colorectal anastomosis to be intact without leak. Abdominal cavity was thoroughly irrigated. Small bowel brought into the wound. The area of perforation was noted in the small bowel proximally. The cause of this was uncertain. This was closed in 2 layers, closing the inner layer of continuous locking sutures of 3-0 Vicryl and outer with interrupted Lembert suture of 3-0 silk. Abdominal cavity was thoroughly irrigated with 6 L of saline solution. Irrigant was evacuated. The segment of the diverting ileostomy was closed with a stapler, excising the small segment of bowel and discarded. This was left stapled off for now as an ABThera was applied with plans to return to the operating room in 48 hours for abdominal washout and closure. Job ID: [id number]
[2019-11-01] MEDS: Albumin 25% 25 GM/100 ML BOT IVPB SCH ×3 (06:01→17:31)
[2019-11-01 06:52] LABS: Actual Bicarbonate (HCO3a) 16.1 mEq/L (22-28); Base Excess (BEa) -8.2 mEq/L (-2.0 to +3.0); CO2 Tension 28.9 mmHg (35.0-45.0); Calcium, Ionized 1.13 mmol/L (1.12-1.30); Carboxyhemoglobin (COHb) 0.8 gm% (0.0-3.0); Hemoglobin (Hb) 9.6 g/dL (14.0-18.0); O2 Tension (PaO2) 80.4 mmHg (> 70.0); Potassium - ABG Lab 4.17 mmol/L (3.70-5.30); pH, Arterial 7.36 (7.35-7.45)
[2019-11-01 06:55] LABS: ALV-art Gradient 239.975 (0-20); Puncture Site LRA
--- NOTE | 2019-11-01 08:24 | RAD ---
Chest AP view INDICATION: 74-year-old male with intubation COMPARISON: October 30, 2019 FINDINGS: Lungs: The lungs are clear Cardiac silhouette: There is mild cardiomegaly Pulmonary vasculature: There is [id number] pulmonary vascular congestion which has worsened. Pleural spaces: There are small bilateral pleural effusions Upper abdomen: There is a gastric catheter again seen projecting the region of the distal gastric dominga dy. Osseous structures: No acute osseous abnormality. Additional findings: The patient has been intervally intubated. The ET tube tip is seen at the level of thoracic inlet. Left subclavian chest wall port is in place. There is a right subclavian central venous catheter which is new. The tip of the catheter projects in the region of the caval atr ial junction. IMPRESSION: Interval intubation and right subclavian central venous catheter placement. Stable gastric catheter. Mild cardiomegaly with worsening pulmonary vascular congestion and small bilateral pleural effusions may reflect volume overload or CHF. Continued follow-up is recommended. Resolution of previously seen free air underlying the hemidiaphragms on the acute abdominal series da delvis October 30, 2019.
[2019-11-01] MEDS: Pantoprazole 40 MG VIAL IVP SCH (08:32)
[2019-11-01] MEDS: Fluconazole In NaCl,Iso-Osm 200 MG in Premix Bag 1 BAG IVPB SCH (08:32)
[2019-11-01] MEDS: Insulin Regular 300 UNITS/3 ML VIAL SC PRN (10:02)
[2019-11-01] MEDS: Propofol 1,000 MG/100 ML VIAL IV PRN (10:55)
[2019-11-01] MEDS: Dextrose 10% in Water 1,000 ML IV SCH (13:58)
--- NOTE | 2019-11-01 17:55 | CON ---
DATE OF CONSULTATION: 11/01/2019 SERVICE: Pulmonary Medicine. REASON FOR CONSULTATION: ICU patient. HISTORY OF PRESENT ILLNESS: The patient is a 74-year-old white male with past medical history significant for a colorectal cancer. He underwent neoadjuvant chemotherapy and presented for an elective excision of this mass. Postoperative course was complicated by an enteric leak. As such, he went back to the operating room this morning. He was left on mechanical ventilator with a wound VAC in place. It is my understanding that the abdomen is open and a repeat laparotomy is being planned for tomorrow morning. He has been put on appropriate antibiotics including Zosyn and fluconazole. He cannot provide any additional elements of the history as he is under the influence of some sedation, and on mechanical ventilator. Nursing reports no specific events presently. PAST MEDICAL HISTORY: 1. Type 2 diabetes mellitus. 2. Colorectal cancer. 3. Osteoarthritis. 4. Hypertension. PAST SURGICAL HISTORY: 1. MediPort placement. 2. UroLift. 3. Laparotomy with partial colon resection and ileostomy formation. FAMILY HISTORY: Noncontributory. SOCIAL HISTORY: Negative for significant alcohol, tobacco, or illicit drug use currently. He has no exposure to chemicals, dust, asbestos, or tuberculosis. ALLERGIES: NO KNOWN DRUG ALLERGIES. MEDICATIONS: List of his inpatient medications was reviewed. No specific updates were made at this time. REVIEW OF SYSTEMS: General, head, ears, eyes, nose, throat, cardiovascular, respiratory, GI, , musculoskeletal, neurologic, and skin are negative except as mentioned in the HPI. PHYSICAL EXAMINATION: VITAL SIGNS: Afebrile, pulse 81, blood pressure 195/60, respirations 15, and saturation 96% on room air. GENERAL: The patient is awake and alert, in no apparent distress. LUNGS: Wonderful air entry. No prolonged expiratory phase or wheezing is appreciated. HEART: Normal rate. Regular. ABDOMEN: Soft. Bowel sounds are absent. There is tenderness to palpation, but I do not see any rebound currently. MUSCULOSKELETAL: No cyanosis or clubbing. There is no pitting throughout. NEUROLOGIC: Grossly nonfocal. LABORATORY DATA: WBC 3.3, hemoglobin 9.8, and platelets 61,000 and downtrending. A pH of 7.36, pCO2 of 29, pO2 of 80.4, corresponding to a saturation of nearly 96% . Creatinine 1.48 and gently downtrending. Basic metabolic profile is unremarkable except for a sodium of 126, which seems to be improving. Magnesium 1.8 and phosphorus 3.1. IMAGING: Chest x-ray demonstrates low lung volumes. Endotracheal tube is in good position roughly 2 to 3 cm above the level of the sandhya. There is likely fluid in the fissure. Right-sided subclavian central venous catheter terminates in the proximal superior vena cava. There is also a left-sided port catheter, which is in good position. ASSESSMENT: 1. Acute hypoxic respiratory failure, mild. 2. Gross peritonitis secondary to enteric leak, status post laparotomy. 3. Pancytopenia. 4. Acute kidney injury, improving. 5. Hyponatremia, improving. DISCUSSION AND PLAN: We will continue empiric antibacterial and antifungal antibiotics. He has been switched over to pressure control ventilation as this is to minimize dyssynchrony significantly. We will leave him on the mechanical ventilator for the next 24 hours. Hopefully, after his next washout, he may be considered for liberation from mechanical ventilator. I will check a B12 and folate, and get a peripheral smear tomorrow because of the pancytopenia. My suspicion is this is all from his severe sepsis from peritonitis; however. It should clear through time. Critical care time: 30 minutes. Job ID: [id number] MTDD
--- NOTE | 2019-11-01 18:01 | PRG ---
DATE OF SERVICE: 11/01/2019 SUBJECTIVE: Jan Pérez is stable. He is on the ventilator. His vital signs are stable. His urine output has been excellent and IV fluids decreased from 150 to 100. His hypoglycemia has resolved. His Accu-Cheks are in fact between 150 and 200 and his D10 has been discontinued. He is sedated. 98.3, 110/65, heart rate 87. This morning, his white count is 3 much improved from his neutropenia before, hemoglobin 9.8, platelet count 61,000. Sodium is improved to 126, potassium 4.3, BUN improved to 31, creatinine 1.49. His lungs are clear to auscultation. Cardiac, regular rate and rhythm. No murmur or gallop. Abdomen soft. Urine output 1250 the last 24 hours. NG tube output 850. He had 3.3 L out when initially placed over the weekend. ASSESSMENT/PLAN: 1. Acute kidney injury, improving. 2. Sepsis. Continue Zosyn and Diflucan for fecal peritonitis. 3. Open abdomen with ABThera. Continue treatment. We would tentatively plan to return to the operating room tomorrow for laparotomy washout and hopefully definitive closure as well as re-formation of ileostomy at the same location. I have discussed with family and they have been updated. Pathology report is now returned today from his rectal cancer resection. No residual cancer is identified, 16 nodes negative, T0 N0, ulcerated tumor bed identified 2.5 cm abutting this to margin. Job ID: [id number]
[2019-11-01] MEDS: Enoxaparin Sodium 40 MG/0.4 ML SYRINGE SC SCH (21:57)
[2019-11-02] MEDS: Piperacillin/Tazobactam 3.375 GM in Sodium Chloride 0.9% 100 ML IVPB SCH ×4 (00:18→17:50)
[2019-11-02] MEDS: Albumin 25% 25 GM/100 ML BOT IVPB SCH ×3 (00:19→17:54)
[2019-11-02] MEDS: Dextrose 5 % And 0.9 % NaCl 1,000 ML IV SCH ×2 (00:31→13:00)
[2019-11-02] MEDS: Propofol 1,000 MG/100 ML VIAL IV PRN ×2 (02:10→09:08)
[2019-11-02 05:16] LABS: Anion Gap 10 mmol/L (10-20); BUN (Urea Nitrogen) 37 mg/dL (8.4-25.7); Calc. Creatinine Clearance 57 mL/min (70-130); Calcium 9.2 mg/dL (7.8-10.44); Carbon Dioxide 20 mmol/L (23-31); Chloride 107 mmol/L (98-107); Estimated GFR-MDRD 46; Glucose 144 mg/dL (83-110); Potassium 4.1 mmol/L (3.5-5.1); Sodium 133 mmol/L (136-145)
[2019-11-02 05:28] LABS: Band 19 % (5-11); Hemoglobin 8.7 g/dL (14.0-18.0); Hypochromia SLIGHT = 6-15 cells (100X) (0-5/hpf); Lymphocytes 9 % (21-51); MDiff Complete? YES; Mean Corpuscular HGB CONC 33.2 g/dL (32.0-36.0); Mean Corpuscular Volume 93.5 fL (78.0-98.0); Mean Platelet Volume 11.2 fL (7.4-10.4); Monocytes 11 % (0-10); Neutrophil 61 % (42-75); Platelet Count 60 thou/uL (130-400); Platelet Morphology Comment Appears Decreased; RBC Distribution Width 20.2 % (11.5-14.5); Red Blood Cell (RBC) Count 2.79 mill/uL (4.70-6.10)
[2019-11-02] MEDS: Pantoprazole 40 MG VIAL IVP SCH (07:50)
[2019-11-02] MEDS: Fluconazole In NaCl,Iso-Osm 200 MG in Premix Bag 1 BAG IVPB SCH (08:59)
[2019-11-02] MEDS ORDERED: EPHEDRINE 25 MG/5 ML SYRINGE ONE (09:43)
[2019-11-02] MEDS ORDERED: Rocuronium Bromide 10 MG/ML (10ML VIAL) ONE (09:43)
[2019-11-02] MEDS ORDERED: PHENYLEPHRINE-NS 100 MCG/ML 10 ML SYRINGE ONE (09:43)
--- NOTE | 2019-11-02 15:33 | PRG ---
DATE OF SERVICE: 11/02/2019 SERVICE: Pulmonary Medicine. INTERVAL HISTORY: The patient is doing fine from respiratory standpoint. He is on room air. There has been no interval change to his condition. Otherwise, he is going back to the operating room today for a washout and possible closure. He cannot provide any additional elements of the history presently. PHYSICAL EXAMINATION: VITAL SIGNS: Afebrile, pulse 56, blood pressure 111/61, respirations 15, saturation 98% on 31% FiO2 and a PEEP of 5. GENERAL: The patient is intubated and sedated. HEENT: Normocephalic and atraumatic. Sclerae white. Conjunctivae pink. Oral mucosa is moist without lesions. LUNGS: Decent air entry. No crackles or wheezing appreciated. HEART: Normal rate. Regular. ABDOMEN: Soft. Tenderness on palpation is mild, but there is no rebound or guarding. Bowel sounds are hypoactive. MUSCULOSKELETAL: No cyanosis or clubbing. There is no pitting in the bilateral lower extremities. NEUROLOGIC: Grossly nonfocal. LABORATORY DATA: WBC 7.0, hemoglobin 8.7, platelets 60,000. Band count is stable at 19%, though his neutrophil count is finally rebounding to 60%. Creatinine 1.49 and roughly stable. Sodium 133, has improved. Basic metabolic profile is otherwise unremarkable. B12 and folate fall within the normal limits. ASSESSMENT: 1. Acute hypoxic respiratory failure, mild. 2. Gross peritonitis secondary to enteric leak, status post laparotomy, open belly. 3. Pancytopenia. 4. Acute kidney injury, resolving. 5. Hyponatremia, improving. DISCUSSION AND PLAN: The patient is doing great from a respiratory standpoint. At this point, he will go back down for a washout procedure. If he is close, we will put him on a spontaneous breathing trial and consider him for extubation today. He appears to be clearing his inflammatory profile quite well. Respiratory failure is currently quite minimal. Multiple adjustments have been made to the ventilator to minimize dyssynchrony. Pulmonary will follow. CRITICAL CARE TIME: 30 minutes. Job ID: [id number]
[2019-11-02] MEDS ORDERED: Midazolam HCl 2 mg/2 ml Vial ONE (15:56)
[2019-11-02] MEDS ORDERED: Fentanyl 250 MCG/5 ML VIAL ONE (15:56)
--- NOTE | 2019-11-02 16:37 | PRG ---
DATE OF SERVICE: 11/02/2019 SUBJECTIVE: Jan Pérez is doing well today. His family is at bedside and I have discussed with them pathology findings of no residual rectal cancer in ulcerated tumor bed after left colorectal resection and protective ileostomy. The patient is on the ventilator. OBJECTIVE: VITAL SIGNS: Temperature 98.6 degrees, blood pressure 118/65, and heart rate 62. GENERAL: The patient is alert, does shake his head appropriately and answers questions. He is sedated, but slightly awake. LUNGS: Clear to auscultation. CARDIAC: Regular rate and rhythm. ABDOMEN: Soft and nontender. ABThera in place. EXTREMITIES: No significant edema. INPUT AND OUTPUT: The patient's gastric drainage is 150 over the last 24 hours and urine output 2800 in the last 24 hours. IV fluid has been decreased from 150 to 100 and now down to 60. LABORATORY DATA: This morning, his white count is 7 and hemoglobin 8.7, the bandemia is improved with 19% down from 30%, hemoglobin 8.7. His acute kidney injury is improved. BUN 37, creatinine 1.49, GFR 46, and potassium 4.1. Chest x-ray clear with mild congestion, no pulmonary wheezing. ASSESSMENT AND PLAN: 1. Respiratory failure. Sedation, awaiting a laparotomy, abdominal washout, re-formation of ileostomy, hopefully definitive closure of his abdominal wound today. I have discussed with family. 2. Continue ventilator. Expect to be able to wean that tomorrow. Job ID: [id number]
[2019-11-02 19:00] LABS: Albumin 3.3 g/dL (3.4-4.8); Cholesterol 37 mg/dl (< 200 Desired); HDL Cholesterol Less than 8 mg/dL (>60 Neg Risk); Triglycerides 84 mg/dL (Less than 150)
[2019-11-02] MEDS: Enoxaparin Sodium 40 MG/0.4 ML SYRINGE SC SCH (21:56)
[2019-11-02] MEDS: [UNRECOGNIZED DRUG - OTHER] IV SCH (22:03)
[2019-11-02] MEDS: POTASSIUM CHLORIDE IV SCH (22:03)
[2019-11-02] MEDS: SODIUM ACETATE IV SCH (22:03)
[2019-11-02] MEDS: CALCIUM GLUCONATE IV SCH (22:03)
[2019-11-03] MEDS: Piperacillin/Tazobactam 3.375 GM in Sodium Chloride 0.9% 100 ML IVPB SCH ×4 (00:12→17:33)
[2019-11-03] MEDS: Albumin 25% 25 GM/100 ML BOT IVPB SCH ×3 (00:13→12:04)
[2019-11-03] MEDS: Propofol 1,000 MG/100 ML VIAL IV PRN (00:14)
[2019-11-03] MEDS: Dextrose 5 % And 0.9 % NaCl 1,000 ML IV SCH ×2 (00:14→09:45)
--- NOTE | 2019-11-03 00:54 | OP ---
DATE OF PROCEDURE: 11/02/2019 PREOPERATIVE DIAGNOSES: Open abdomen with ABThera and small bowel in discontinuity, status post enterotomy, feculent peritonitis, respiratory failure, and history of rectal cancer status post low anterior resection after neoadjuvant therapy. POSTOPERATIVE DIAGNOSES: Open abdomen with ABThera and small bowel in discontinuity, status post enterotomy, feculent peritonitis, respiratory failure, and history of rectal cancer status post low anterior resection after neoadjuvant therapy. PROCEDURE PERFORMED: Abdominal washout, removal ABThera, closure of abdomen, Seprafilm used, ileostomy, Wound Care placed a wound VAC for small openings between tanesha. ANESTHESIA: General. ESTIMATED BLOOD LOSS: None. BLOOD TRANSFUSION: None. DESCRIPTION OF PROCEDURE: The patient was taken to the operating room, where under general anesthesia in supine position, abdomen prepared with Betadine and draped in routine fashion. ABThera removed. Abdominal cavity irrigated, washed with saline. The old enterography repair was inspected, noted to be intact. Few Lembert suture 3-0 silk placed to reinforce it. Abdominal cavity was thoroughly irrigated. Ileostomy brought down to the old ileostomy site. The ileum distally was placed in the right lower lateral abdomen for later identification. The fascia was closed with continuous suture of #1 PDS. Skin and subcutaneous tissues irrigated. Skin loosely approximated with tanesha. Wound Care placed a wound VAC. Ileostomy matured with interrupted four quadrant sutures of 3-0 Vicryl and simple sutures of 3-0 Vicryl. An ostomy appliance secured. The patient tolerated the procedure well interpretation. Job ID: [id number]
[2019-11-03 04:32] LABS: Band 32 % (5-11); Burr Cells SLIGHT = 2-5 cells (100X) (0-1/hpf); Lymphocytes 25 % (21-51); MDiff Complete? YES; Mean Corpuscular HGB CONC 33.6 g/dL (32.0-36.0); Mean Corpuscular Hemoglobin 31.5 pg (27.0-31.0); Mean Corpuscular Volume 93.7 fL (78.0-98.0); Neutrophil 43 % (42-75); Ovalocytes SLIGHT = 2-5 cells (100X) (0-1/hpf); Platelet Count 64 thou/uL (130-400); Platelet Morphology Comment Appears Decreased; RBC Distribution Width 20.3 % (11.5-14.5); Red Blood Cell (RBC) Count 2.84 mill/uL (4.70-6.10); White Blood Cell (WBC) Count 5.6 thou/uL (4.8-10.8)
[2019-11-03 04:33] LABS: Phosphorus 2.4 mg/dL (2.3-4.7)
[2019-11-03 04:38] LABS: Anion Gap 11 mmol/L (10-20); BUN (Urea Nitrogen) 46 mg/dL (8.4-25.7); Calc. Creatinine Clearance 62 mL/min (70-130); Calcium 9.2 mg/dL (7.8-10.44); Carbon Dioxide 19 mmol/L (23-31); Chloride 111 mmol/L (98-107); Estimated GFR-MDRD 52; Glucose 126 mg/dL (83-110); Magnesium 2.5 mg/dL (1.6-2.6); Potassium 3.8 mmol/L (3.5-5.1); Sodium 137 mmol/L (136-145)
[2019-11-03] MEDS: Pantoprazole 40 MG VIAL IVP SCH (07:31)
[2019-11-03] MEDS: Fluconazole In NaCl,Iso-Osm 200 MG in Premix Bag 1 BAG IVPB SCH (07:31)
--- NOTE | 2019-11-03 07:35 | PRG ---
DATE OF SERVICE: 11/03/2019 SUBJECTIVE: Mr. Pérez is on the ventilator, doing well. Expectation is that he will be extubated today. His sedation has been minimized. He does open his eyes to voice. OBJECTIVE: VITAL SIGNS: Blood pressure 136/73, heart rate 78. Overnight, his gastric drainage is 100 mL. Ileostomy is working with stool and some flatus. Urine output 2190 for 24 hours. LUNGS: Clear to auscultation. CARDIAC: Regular rate and rhythm. No murmur or gallop. ABDOMEN: Soft. Diminished bowel sounds. LABORATORY DATA: White count 5.6, hemoglobin 9, bands 32%. Sodium 137, potassium 3.8, chloride 111, BUN 46, creatinine 1.36, magnesium 2.5, phosphorus 2.4, and glucose is 90 to 140 (no insulin in his TPN). ASSESSMENT AND PLAN: 1. Enterotomy, fecal peritonitis, small bowel. The patient is recovering nicely after repair. Two days ago, an open abdomen, definitive abdominal closure and ileostomy reformation at the same site yesterday. He is on TPN, TKO IV fluids. Continue NG tube suction. If the NG tube comes out, he can stay out, do not reinsert. Otherwise, we will leave it in another 24 hours and hopefully remove it. I would not start enteral feedings at time. I will continue TPN. Continue albumin. Respiratory failure expect extubation today and physical therapy mobilization up in a chair and incentive spirometer. 2. Acute kidney injury, markedly improved. Continue TPN hydration. 3. Rectal cancer. No residual disease on surgical resection after neoadjuvant therapy, chemotherapy, radiation therapy. This has been communicated to his . 4. Abdominal wound VAC in place. Continue wound VAC. Job ID: [id number]
[2019-11-03] MEDS ORDERED: Furosemide 40 MG/4 ML VIAL ONE (09:38)
[2019-11-03] MEDS ORDERED: Furosemide 40 MG/4 ML VIAL SLOW IVP SCH (09:40)
[2019-11-03] MEDS: Morphine 2 MG/ML SYRINGE SLOW IVP PRN ×5 (10:11→22:12)
[2019-11-03] MEDS ORDERED: Ondansetron ODT 8 MG TAB SL PRN (15:24)
[2019-11-03] MEDS ORDERED: Morphine 4 MG/ML VIAL ONE (16:19)
--- NOTE | 2019-11-03 16:27 | PRG ---
DATE OF SERVICE: 11/03/2019 SERVICE: Pulmonary Medicine. INTERVAL HISTORY: The patient is doing fine from respiratory standpoint. Oxygen requirements have gone up a little bit. He is on TPN at this point. He is a touch volume overloaded. That being said, yesterday, he was closed late afternoon. He has done well on a spontaneous breathing trial this morning. He is pulling fantastic volumes. PHYSICAL EXAMINATION: VITAL SIGNS: Afebrile. Pulse 99, blood pressure 147/81, respirations 28, saturation 100%, currently on 31% FiO2 and a PEEP of 5. GENERAL: The patient is intubated. He is on the influence of a little sedation. HEENT: Normocephalic and atraumatic. Sclerae white. Conjunctivae pink. Oral mucosa is moist without lesions. LUNGS: Wonderful air entry. There was some dependent crackles present. No prolonged expiratory phase or wheezing is appreciated. HEART: Normal rate and regular. ABDOMEN: Soft, nontender, nondistended. Bowel sounds are hypoactive. : Voss catheter in place. NEUROLOGIC: Grossly nonfocal. LABORATORY DATA: WBC 5.6, hemoglobin 9.0, platelets 64,000 and gently up trending. Creatinine 1.36 and downtrending gently. BUN 46. Basic metabolic profile is otherwise unremarkable. Magnesium and phosphorous fall within the normal limits. ASSESSMENT: 1. Acute hypoxic respiratory failure, mild. 2. Gross peritonitis secondary to enteric leak, status post laparotomy, and subsequent washout with closure. 3. Pancytopenia, improving. 4. Acute kidney injury, stable/resolving. DISCUSSION AND PLAN: I will watch his ins and outs quite closely. We will try to keep him even if not 1 to 2 L negative over the next 24 hours. I have given a dose of Lasix now and daily. I will put him on a spontaneous breathing trial. If he meets criteria, extubation will be considered. Pulmonary/Critical Care will continue to follow along in this location. He will need to remain in the ICU for the time being. Job ID: [id number]
[2019-11-03] MEDS: Ondansetron PF 4 MG/2 ML Vial IVP PRN (21:21)
[2019-11-03] MEDS: Enoxaparin Sodium 40 MG/0.4 ML SYRINGE SC SCH (21:31)
[2019-11-03] MEDS: Insulin Regular 300 UNITS/3 ML VIAL SC PRN (22:19)
[2019-11-03] MEDS: [UNRECOGNIZED DRUG - OTHER] IV SCH (23:12)
[2019-11-03] MEDS: CALCIUM GLUCONATE IV SCH (23:12)
[2019-11-03] MEDS: SODIUM ACETATE IV SCH (23:12)
[2019-11-03] MEDS: POTASSIUM CHLORIDE IV SCH (23:12)
[2019-11-04] MEDS: Morphine 2 MG/ML SYRINGE SLOW IVP PRN ×8 (02:20→22:14)
[2019-11-04] MEDS: Ondansetron PF 4 MG/2 ML Vial IVP PRN (04:00)
[2019-11-04] MEDS: Insulin Regular 300 UNITS/3 ML VIAL SC PRN ×4 (04:07→22:09)
[2019-11-04 04:36] LABS: #Lymphocytes 1.2 thou/uL (1.20-3.40); #Monocytes 0.2 thou/uL (0.11-0.59); #Neutrophils 5.2 thou/uL (1.40-6.50); %Basophils 0.4 % (0.0-1.0); %Eosinophils 0.6 % (0.0-10.0); %Lymphocytes 17.8 % (21.0-51.0); %Monocytes 2.7 % (0.0-10.0); %Neutrophils 78.4 % (42.0-75.0); Hemoglobin 10.2 g/dL (14.0-18.0); Mean Corpuscular HGB CONC 33.2 g/dL (32.0-36.0); Mean Corpuscular Hemoglobin 31.1 pg (27.0-31.0); Mean Corpuscular Volume 93.8 fL (78.0-98.0); Mean Platelet Volume 5.6 fL (7.4-10.4); Platelet Count 58 thou/uL (130-400); RBC Distribution Width 19.4 % (11.5-14.5); Red Blood Cell (RBC) Count 3.28 mill/uL (4.70-6.10); White Blood Cell (WBC) Count 6.7 thou/uL (4.8-10.8)
[2019-11-04 05:11] LABS: Anion Gap 11 mmol/L (10-20); BUN (Urea Nitrogen) 54 mg/dL (8.4-25.7); Calc. Creatinine Clearance 56 mL/min (70-130); Carbon Dioxide 23 mmol/L (23-31); Chloride 107 mmol/L (98-107); Estimated GFR-MDRD 46; Potassium 3.4 mmol/L (3.5-5.1); Sodium 138 mmol/L (136-145)
[2019-11-04 05:12] LABS: Calcium 9.3 mg/dL (7.8-10.44); Glucose 234 mg/dL (83-110); Phosphorus 1.9 mg/dL (2.3-4.7)
[2019-11-04] MEDS: Piperacillin/Tazobactam 3.375 GM in Sodium Chloride 0.9% 100 ML IVPB SCH ×4 (05:48→17:01)
[2019-11-04] MEDS ORDERED: Potassium Phosphate 30 MMOL in Sodium Chloride 0.9% 250 ML 250 ML IVPB SCH (08:15)
[2019-11-04] MEDS: Pantoprazole 40 MG VIAL IVP SCH (09:16)
[2019-11-04] MEDS: Fluconazole In NaCl,Iso-Osm 200 MG in Premix Bag 1 BAG IVPB SCH (09:16)
--- NOTE | 2019-11-04 09:19 | PRG ---
DATE OF SERVICE: 11/04/2019 SERVICE: Pulmonary Medicine. INTERVAL HISTORY: The patient is doing poorly from a metabolic standpoint. He is toxic appearing today and has an increasing yellow color about him. He is more encephalopathic and had some confusional states last night. He tolerated extubation quite well, he is on room air. That being said, he does not look comfortable with his breathing. His saturations are fantastic. Otherwise, there has been no interval change to his condition. PHYSICAL EXAMINATION: VITAL SIGNS: Currently, afebrile with a temperature of 100.4 last night. Pulse of 95, blood pressure 139/80, respirations 19, saturation 98% on room air. GENERAL: Patient is toxic appearing. He is a little encephalopathic. When we wake him up, he is appropriate, but drifts off to sleep without stimulation. HEENT: Normocephalic and atraumatic. Sclerae yellow. Conjunctivae pink. Oral mucosa is moist without lesions. LUNGS: Good air entry bilaterally. No prolonged expiratory phase. I do not appreciate crackles today. HEART: Normal rate, regular. ABDOMEN: Soft. Distended. Bowel sounds are absent. It is tender to palpation throughout. There is some rebound. MUSCULOSKELETAL: No cyanosis or clubbing. There is no pitting in the bilateral lower extremities. NEUROLOGIC: Grossly nonfocal. LABORATORY DATA: WBC 6.7, hemoglobin 10.2, platelets 58,000. PH 7.36, pCO2 of 28, PO2 of 80. Creatinine 1.51, BUN 54. Potassium 3.4, phosphorus 1.9. ASSESSMENT: 1. Acute hypoxic respiratory failure, resolved. 2. Gross peritonitis secondary to enteric leak, status post laparotomy and subsequent washout with closure. 3. Sever sepsis. 3. Pancytopenia, stable. 4. Acute kidney injury, worsening. DISCUSSION AND PLAN: I will back off on his Lasix and just simply try to keep him net even over the next 24 hours. He is toxic appearing. I will get an ABG to make certain he is not hypercapnic, and we will perform liver function studies as well. Mobilization efforts will be pursued, though the patient's mentation will prevent us from being aggressive with mobilization. Empiric antibiotics directed at [facility] will be continued. Pulmonary/Critical Care will follow. Job ID: [id number] [facility]
[2019-11-04 09:35] LABS: ALT (SGPT) 33 U/L (8-55); AST (SGOT) 31 U/L (5-34); Alkaline Phosphatase 59 U/L (40-110); Bilirubin, Direct 3.8 mg/dL (0.1-0.3); Bilirubin, Total 7.6 mg/dL (0.2-1.2); Protein, Total 4.7 g/dL (5.8-8.1)
[2019-11-04] MEDS: Furosemide 40 MG/4 ML VIAL SLOW IVP SCH (09:46)
[2019-11-04 10:00] LABS: Actual Bicarbonate (HCO3a) 22.1 mEq/L (22-28); Base Excess (BEa) -0.9 mEq/L (-2.0 to +3.0); CO2 Tension 31.2 mmHg (35.0-45.0); Calcium, Ionized 1.26 mmol/L (1.12-1.30); Hemoglobin (Hb) 10.8 g/dL (14.0-18.0); O2 Tension (PaO2) 64.7 mmHg (> 70.0); Potassium - ABG Lab 3.49 mmol/L (3.70-5.30); pH, Arterial 7.47 (7.35-7.45)
[2019-11-04 10:14] LABS: Puncture Site RR
--- NOTE | 2019-11-04 14:17 | PRG ---
DATE OF SERVICE: 11/04/2019 SUBJECTIVE: Mr. Pérez is in ICU. He seems to be doing well, although he has been confused and pulled out his NG tube yesterday. Today, he removed his ileostomy bag, had to be replaced. saturations 96%. Urine output has been excellent at 7390 for 24 hours. Ileostomy output 120 yesterday, 25 today. There has been not much output in the last 24 hours. White count 6.7, hemoglobin 10.2. Basic metabolic profile normal. BUN and creatinine are 54 and 1.51, potassium 3.4, phosphorus 1.9, bilirubin 7.6. The patient is slightly jaundiced. OBJECTIVE: LUNGS: Clear to auscultation. CARDIAC: Regular rate and rhythm without murmur or gallop. ABDOMEN: Soft, much less tender than preoperatively. Ileostomy healthy with scant output. EXTREMITIES: Unremarkable. ASSESSMENT AND PLAN: 1. Acute kidney injury, stable. Continue to monitor. 2. Ileus after fecal peritonitis. Continue to observe, n.p.o., try to leave the NG tube out. If he has any nausea or vomiting, we may have to replace it. 3. Respiratory failure, status post extubation yesterday, stable. 4. Rectal cancer, status post radiation and chemotherapy and in this hospitalization, low anterior resection with pathology, no evidence of disease with retrieved tumor ulcer bed. 5. Confusion, stable, slightly improved. Continue ICU monitoring today. Job ID: [id number]
[2019-11-04] MEDS: Enoxaparin Sodium 40 MG/0.4 ML SYRINGE SC SCH (21:20)
[2019-11-04] MEDS: POTASSIUM CHLORIDE IV SCH (22:49)
[2019-11-04] MEDS: SODIUM ACETATE IV SCH (22:49)
[2019-11-04] MEDS: CALCIUM GLUCONATE IV SCH (22:49)
[2019-11-04] MEDS: [UNRECOGNIZED DRUG - OTHER] IV SCH (22:49)
[2019-11-05] MEDS: Piperacillin/Tazobactam 3.375 GM in Sodium Chloride 0.9% 100 ML IVPB SCH ×3 (00:06→11:53)
[2019-11-05] MEDS: Morphine 2 MG/ML SYRINGE SLOW IVP PRN ×2 (01:36→11:52)
[2019-11-05] MEDS: Insulin Regular 300 UNITS/3 ML VIAL SC PRN ×4 (04:10→23:43)
[2019-11-05 05:38] LABS: Hemoglobin 10.3 g/dL (14.0-18.0); Mean Corpuscular HGB CONC 33.5 g/dL (32.0-36.0); Mean Corpuscular Hemoglobin 31.8 pg (27.0-31.0); Mean Platelet Volume 11.6 fL (7.4-10.4); Platelet Count 71 thou/uL (130-400); RBC Distribution Width 18.9 % (11.5-14.5); Red Blood Cell (RBC) Count 3.24 mill/uL (4.70-6.10)
[2019-11-05 06:09] LABS: Anion Gap 13 mmol/L (10-20); BUN (Urea Nitrogen) 52 mg/dL (8.4-25.7); Calc. Creatinine Clearance 62 mL/min (70-130); Calcium 9.4 mg/dL (7.8-10.44); Carbon Dioxide 23 mmol/L (23-31); Chloride 110 mmol/L (98-107); Estimated GFR-MDRD 51; Glucose 332 mg/dL (83-110); Potassium 3.8 mmol/L (3.5-5.1); Sodium 142 mmol/L (136-145)
[2019-11-05 06:12] LABS: ALT (SGPT) 64 U/L (8-55); AST (SGOT) 64 U/L (5-34); Albumin 2.7 g/dL (3.4-4.8); Alkaline Phosphatase 64 U/L (40-110); Bilirubin, Total 13.1 mg/dL (0.2-1.2); Protein, Total 4.7 g/dL (5.8-8.1)
[2019-11-05 06:14] LABS: Phosphorus 1.9 mg/dL (2.3-4.7)
[2019-11-05 06:27] LABS: #Monocytes 0.2 thou/uL (0.11-0.59); #Neutrophils 4.7 thou/uL (1.40-6.50); %Basophils 0.4 % (0.0-1.0); %Eosinophils 0.5 % (0.0-10.0); %Lymphocytes 16.7 % (21.0-51.0); %Monocytes 3.4 % (0.0-10.0)
[2019-11-05 06:28] LABS: MDiff Complete? YES; Platelet Morphology Comment Appears Decreased; Schistocytes SLIGHT = 2-5 cells (100X) (0-1/hpf)
[2019-11-05] MEDS: Furosemide 40 MG/4 ML VIAL SLOW IVP SCH (06:36)
--- NOTE | 2019-11-05 07:40 | RAD ---
KUB: INDICATION: NG tube placement. COMPARISON: Prior exam dated 10/31/2019. FINDINGS: Gastric catheter projects in the region of the gastric fundus. Mild gas-filled loops of small bowel within the upper central abdomen are similar-appearing. Large air fluid level within the right upper quadrant of the abdomen is stable-appearing. Osseous structures unchanged. IMPRESSION: NG tube tip now in the region of the gastric fundus. POS: BH
--- NOTE | 2019-11-05 09:08 | ULT ---
Exam: Right upper quadrant ultrasound: HISTORY: Elevated liver function tests. COMPARISON: CT abdomen and pelvis on 10/31/2019 FINDINGS: Liver: Enlarged in craniocaudal dimensions measuring 22 cm. Small anechoic area seen in the most late ral aspect lateral segment left hepatic lobe. However, this may actually represent a small amount of fluid adjacent to the left hepatic lobe. This area measures 2.6 cm x 1.4 cm x 1.2 cm. No abnormali ty was seen in this region on prior CT scan exam, and this may represent small amount of adjacent fluid. Gallbladder: Small amount of increased activity also in the gallbladder lumen suggesting small amount of sludge. No gallbladder calculi are seen. The gallbladder wall is thickened predominantly along the surface adjacent to the liver measuring up to 1 cm in thickness. No definitive pericholecystic fl uid is appreciated on this exam. Common bile duct: Common duct measures 0.7 cm in diameter. This is within normal limits for the patie nt's age. Pancreas: Majority of the pancreas is obscured on this exam and not well evaluated. Right kidney: Right kidney demonstrates a normal sonographic appearance. The right kidney measures 1 2.2 cm in length. IVC: The visualized IVC demonstrates a normal sonographic appearance. IMPRESSION: 1. Thickening of the gallbladder wall with question of small amount of sludge in the gallbladder lume n. No gallbladder calculus is seen. No definite pericholecystic fluid is identified. Gallbladder wall thickening can be seen with acalculus cholecystitis in the correct clinical scenario, hypoprotei nemia, liver disease versus other etiologies. 2. Anechoic area in the region of the lateral margin of the lateral segment left hepatic lobe. This i s probably adjacent to the left hepatic lobe as opposed to hepatic lesion. No abnormality was seen in this region on prior CT exam on 10/31/[address] study on 07/24/2019. Small areas of fluid were seen adjacent to the margin liver in this region on CT scan which may account for this finding. Trace amount of free fluid is seen adjacent to the right hepatic lobe. 3. Hepatomegaly.
[2019-11-05] MEDS: Fluconazole In NaCl,Iso-Osm 200 MG in Premix Bag 1 BAG IVPB SCH (09:42)
[2019-11-05] MEDS: Pantoprazole 40 MG VIAL IVP SCH (09:43)
[2019-11-05] MEDS ORDERED: Magnesium Sulfate 3 GM in Sodium Chloride 0.9% 100 ML IVPB SCH (12:30)
--- NOTE | 2019-11-05 13:28 | PRG ---
DATE OF SERVICE: 11/05/2019 SUBJECTIVE: Mr. Pérez is doing well today. However, he had been confused overnight and pulled out his central line. Last night, nursing assessment felt that his abdomen was distended. NG tube was placed and reportedly 130 mL of gastric aspiration and air and per nursing assessment his abdomen the patient was little more comfortable. In the patient's confusion, he has pulled out his NG tube and we left it out. He has scant output from his ileostomy. He has atrial fibrillation with RVR, was still on diltiazem drip last night. OBJECTIVE: VITAL SIGNS: Heart rate 103, currently 131/78. LUNGS: Clear to auscultation, no wheezing. CARDIAC: Irregularly irregular. ABDOMEN: Soft. Diffuse mild tenderness. No peritoneal signs. Abdomen quiet. No significant bowel sounds. EXTREMITIES: Unremarkable. LABORATORY DATA: Sodium 142, potassium 3.8, chloride 110, creatinine 1.38, BUN 52, GFR 51, glucose is 230-317 on a moderate sliding scale. Bilirubin is up to 13.1, direct bilirubin 8, AST 64, ALT 64. Gallbladder ultrasound obtained revealed perhaps minimal sludge in the gallbladder and common bile duct is still 7 mm. Extremities unremarkable. The patient's white count is 6 and hemoglobin 10.3, platelet count is 71,000. He does not have a left shift. ASSESSMENT/PLAN: 1. Status post left colectomy, protective ileostomy with subsequent fecal peritonitis from an enterotomy. He was operated on Friday, 6 days ago, underwent laparotomy, abdominal washout, excision of the old ileostomy, ABThera and then three days ago underwent reexploration, washout, closure of the abdominal wound and end ileostomy. Seprafilm was used. He initially postoperatively had a significant ileostomy output then that shut down. He has increasing liver function tests without obstructive pattern on ultrasound and would suspect cholestasis and at this time we will observe this. If this does not improve over the next 24 to 48 hours, a CAT scan without IV contrast and without oral contrast will need to be obtained to look for any significant fluid collection. Dr. Poole is covering the weekend. 2. Cholestasis. 3. Recovering from fecal peritonitis. 4. Low magnesium, low phosphorus, replace. 5. Malnutrition, continue TPN during the perioperative stay. 6. Dislodged central line, uses MediPort for IV access and peripheral IV to try to avoid central access. 7. Continue intravenous antibiotics. Alvin. Appreciate Pulmonary medicine's input. Job ID: [id number]
[2019-11-05] MEDS ORDERED: Sodium Phosphate 30 MMOL in Sodium Chloride 0.9% 250 ML 250 ML IVPB SCH (16:30)
--- NOTE | 2019-11-05 16:42 | PRG ---
DATE OF SERVICE: 11/05/2019 SERVICE: Pulmonary Medicine. INTERVAL HISTORY: The patient did okay overnight from hemodynamic standpoint. Mentation owens, he once again got encephalopathic/confused. He cannot provide much in the way of interval history. Otherwise, nursing reports no overnight events. PHYSICAL EXAMINATION: VITAL SIGNS: Afebrile. Pulse 82, blood pressure 117/66, respirations 23, saturation 97%, currently on room air. GENERAL: The patient is awake and alert, in no apparent distress. LUNGS: Good air entry bilaterally. There is minimal dependent crackles present. No prolonged expiratory phase or wheezing is appreciated. HEART: Normal rate regular. ABDOMEN: Soft. Nontender. Nondistended. Bowel sounds are hypoactive. MUSCULOSKELETAL: No cyanosis or clubbing. There is trace to 1+ pitting throughout. NEUROLOGIC: Grossly nonfocal. LABORATORY DATA: WBC 6.0, hemoglobin 10.3, and platelets 71,000 and rebounding. PH 7.47, pCO2 of 31, PO2 of 64, corresponding to a saturation of 94% while on room air. Creatinine 1.38 and gently downtrending, BUN 52. Basic metabolic profile is otherwise unremarkable. Phosphorus 1.9. Total bilirubin 13 and up trending, direct bilirubin 8, AST and ALT are gently up trending, though the alkaline phosphatase remains low. Albumin 2.7, total protein 4.7. IMAGING: Ultrasound of the abdomen demonstrates thickening of the gallbladder wall. ASSESSMENT: 1. Acute hypoxic respiratory failure, resolved. 2. Gross peritonitis secondary to enteric leak, status post laparotomy and subsequent washout with closure. 3. Pancytopenia, improving. 4. Acute kidney injury, improving. 5. Elevated bilirubin. DISCUSSION PLAN: The bilirubin being elevated, it is curious. It may be a side effect of the TPN. This will be interrupted for the time being. GI consultation will be placed. I will review the Zosyn and fluconazole and determine whether or not these antibiotics need to be adjusted. We will continue supportive care otherwise. IV Lasix will be interrupted. Pulmonary/Critical Care will continue to follow very closely, but I think it would be prudent if he remain in the ICU for the time being. I agree that he will need a repeat CT of the abdomen and pelvis shortly. Job ID: [id number]
--- NOTE | 2019-11-05 16:43 | EKG ---
Test Reason : STAT Blood Pressure : / mmHG Vent. Rate : 143 BPM Atrial Rate : 136 BPM P-R Int : 000 ms QRS Dur : 100 ms QT Int : 308 ms P-R-T Axes : 000 047 041 degrees QTc Int : 475 ms Atrial fibrillation with rapid ventricular response Nonspecific ST abnormality Abnormal ECG When compared with ECG of 17-SEP-2019 11:30, Atrial fibrillation has replaced Sinus rhythm Vent. rate has increased BY [address] now depressed in Anterolateral leads Confirmed by DR. Kristal SULLIVAN ([id number]) on 11/05/2019 4:42:42 PM Referred By: CYNTHIA Confirmed By:DR. Kristal SULLIVAN
[2019-11-05] MEDS: Micafungin 150 MG in Sodium Chloride 0.9% 100 ML IVPB SCH (17:38)
[2019-11-05] MEDS: Dextrose 5 %-0.45 % NaCl 1,000 ML IV SCH (17:42)
[2019-11-05] MEDS: Enoxaparin Sodium 40 MG/0.4 ML SYRINGE SC SCH (19:49)
[2019-11-05] MEDS ORDERED: CALCIUM GLUCONATE IV SCH ×2 (22:00)
[2019-11-05] MEDS ORDERED: [UNRECOGNIZED DRUG - OTHER] IV SCH ×2 (22:00)
[2019-11-05] MEDS ORDERED: SODIUM ACETATE IV SCH ×2 (22:00)
[2019-11-05] MEDS ORDERED: POTASSIUM CHLORIDE IV SCH ×2 (22:00)
[2019-11-05] MEDS: Meropenem 2 GM, Admixture Fee 1 EACH in Sodium Chloride 0.9% 100 ML IVPB SCH (22:06)
--- NOTE | 2019-11-05 23:44 | CON ---
DATE OF CONSULTATION: 11/05/2019 CHIEF COMPLAINT: Abnormal liver test. HISTORY OF PRESENT ILLNESS: Mr. Pérez is a 74-year-old man, who underwent chemo radiation for rectal cancer followed by surgical resection with low anterior resection back on 10/27/2019. He was taken back to the OR on 10/31/2019 due to leak from a small bowel enterotomy and peritonitis. He underwent washout and repair of the leak. The ileostomy was taken down. He went back to the OR on 11/02/2019 and had abdominal washout and closure of his abdominal wound and ileostomy was replaced. He started TPN a few days ago. He has been receiving broad-spectrum antibiotics including Zosyn. He has had confusions and has remained in the ICU. GI was consulted due to elevated liver test. PAST MEDICAL HISTORY: Diabetes mellitus type 2, arthritis, hyperlipidemia, rectal cancer treated with neoadjuvant chemoradiation. PAST SURGICAL HISTORY: Resection of rectal cancer this hospital stay with subsequent followup surgery as noted above. MediPort, colonoscopy, UroLift. FAMILY HISTORY: Negative for GI malignancy. SOCIAL HISTORY: No alcohol, tobacco, or drugs. ALLERGIES: NO KNOWN DRUG ALLERGIES. CURRENT INPATIENT MEDICATIONS: 1. Diltiazem. 2. Enoxaparin. 3. Meropenem, however, this was changed from Zosyn earlier today. 4. Micafungin. 5. Pantoprazole. 6. He has been on TPN, which was held today. REVIEW OF SYSTEMS: Unobtainable due to the patient's decreased mental status. PHYSICAL EXAMINATION: VITAL SIGNS: Temperature 98.6, blood pressure 145/75, pulse 76. GENERAL: He is confused. He is able to tell me his name, but not the place or the year. Really contribute significantly to the history otherwise. He is hard of hearing. He is jaundiced. HEENT: His eyes have scleral icterus. Oropharynx of dry mucous membranes without lesions. No cervical or supraclavicular lymphadenopathy. LUNGS: Clear to auscultation bilaterally. HEART: Regular rate and rhythm without murmur. ABDOMEN: Soft. He is diffusely tender. His bowel sounds are present. He has wound dressed. Ileostomy is in place in the right lower quadrant. EXTREMITIES: No lower extremity edema. LABORATORY DATA: White blood cell count 6.0, hemoglobin 10.3, platelets 71,000. BUN 52, creatinine 1.38. Bilirubin today 13.1. Bilirubin yesterday 7.6. Bilirubin back on October 21 was 1.7 and September 02 was 2.2, July 27 was 0.8. AST 64. This has always been normal. Otherwise, ALT 64, also this has been normal prior. Alkaline phosphatase is normal at 64, albumin 2.7, iron 35, TIBC 430. Ferritin 200 in August, however, it was less than 2 back in July. IMAGING: Ultrasound of the abdomen on 11/05/2019 shows some fluid next to the left hepatic lobe. Liver was somewhat large. CT scan of the abdomen and pelvis on 10/31/2019 did not reveal obvious liver abnormality. CT scan of the chest, abdomen, pelvis from July did not report nodularity to the liver or splenomegaly. IMPRESSION: Abnormal liver function tests. He has marked hyperbilirubinemia with a normal alkaline phosphatase. His transaminases are only two times upper limit of normal with this. This could be due to drug induced liver injury. He had Zosyn stopped today. He has been on TPN, but only for a few days and has not been on lipids with that every day, so I would not expect that this would be the primary source of his liver injury. He could have underlying liver disease with decompensation. However, there is no nodularity noted to liver on previous imaging or splenomegaly. He has had thrombocytopenia which could be a sign of portal hypertension, but otherwise nothing to suggest cirrhosis prior to this. His albumin prior to surgery has always been greater than four. At this point, I doubt that he has underlying cirrhosis decompensated. Otherwise, he could have had an ischemic injury to the liver, which we can see delayed rise in the bilirubin. Sepsis could have led to this as well, which is now being treated. RECOMMENDATIONS: 1. I will check labs for other causes of liver disease such as viral hepatitis panel and autoimmune markers. However, I think the most likely source for this hyperbilirubinemia would have been recent sepsis or ischemic injury. Close behind and possibly this likely would be drug induced liver injury. I would favor the antibiotic over the TPN given the short duration of the TPN and only intermittent use of lipids. He does have micafungin on his medication list, but this is new. He was on fluconazole on the through the , which also might be more likely actually than the Zosyn as a cause of drug-induced liver injury. 2. Check trend of the liver test and check INR. 3. He does not have obvious asterixis on exam now. I will check an ammonia with his morning labs. He does have underlying confusion, but this does not appear to be obvious hepatic encephalopathy. Job ID: [id number]
[2019-11-06 04:20] LABS: INR-International Normal Ratio 1.2; Prothrombin Time 15.2 SEC (12.0-14.7)
[2019-11-06 04:23] LABS: #Lymphocytes 1.2 thou/uL (1.20-3.40); #Monocytes 0.1 thou/uL (0.11-0.59); #Neutrophils 4.6 thou/uL (1.40-6.50); %Eosinophils 0.3 % (0.0-10.0); %Lymphocytes 20.8 % (21.0-51.0); %Monocytes 1.8 % (0.0-10.0); Hemoglobin 10.4 g/dL (14.0-18.0); Mean Corpuscular HGB CONC 32.6 g/dL (32.0-36.0); Mean Corpuscular Hemoglobin 30.8 pg (27.0-31.0); Mean Corpuscular Volume 94.3 fL (78.0-98.0); Mean Platelet Volume 11.8 fL (7.4-10.4); Platelet Count 101 thou/uL (130-400); RBC Distribution Width 18.7 % (11.5-14.5); Red Blood Cell (RBC) Count 3.37 mill/uL (4.70-6.10); White Blood Cell (WBC) Count 5.9 thou/uL (4.8-10.8)
[2019-11-06 04:25] LABS: ALT (SGPT) 169 U/L (8-55); AST (SGOT) 217 U/L (5-34); Albumin 2.8 g/dL (3.4-4.8); Alkaline Phosphatase 75 U/L (40-110); Magnesium 2.4 mg/dL (1.6-2.6); Protein, Total 5.2 g/dL (5.8-8.1)
[2019-11-06 04:31] LABS: Anion Gap 16 mmol/L (10-20); BUN (Urea Nitrogen) 61 mg/dL (8.4-25.7); Calc. Creatinine Clearance 55 mL/min (70-130); Calcium 9.6 mg/dL (7.8-10.44); Carbon Dioxide 22 mmol/L (23-31); Chloride 111 mmol/L (98-107); Estimated GFR-MDRD 45; Glucose 208 mg/dL (83-110); Phosphorus 3.3 mg/dL (2.3-4.7); Potassium 3.5 mmol/L (3.5-5.1); Sodium 145 mmol/L (136-145)
[2019-11-06 04:43] LABS: HBCM Index 0.07 S/CO (0-0.79); Hep A IgM AB Non-Reactive (NonReactive); Hep A IgM S/CO 0.17 S/CO (0-0.79); Hep B Surf Ag Non-Reactive S/CO (NonReactive); Hep C IgG Ab Non-Reactive (NonReactive); Hepatitis B Core IgM Abs Non-Reactive (NonReactive)
[2019-11-06 04:51] LABS: Bilirubin, Direct 11.5 mg/dL (0.1-0.3)
[2019-11-06] MEDS: Meropenem 2 GM, Admixture Fee 1 EACH in Sodium Chloride 0.9% 100 ML IVPB SCH ×3 (05:34→22:50)
[2019-11-06] MEDS: Dextrose 5 %-0.45 % NaCl 1,000 ML IV SCH ×4 (06:27→20:35)
[2019-11-06] MEDS: Insulin Regular 300 UNITS/3 ML VIAL SC PRN ×3 (06:28→15:57)
[2019-11-06] MEDS: Pantoprazole 40 MG VIAL IVP SCH (08:50)
--- NOTE | 2019-11-06 11:17 | PRG ---
DATE OF SERVICE: 11/06/2019 SERVICE: Pulmonary Medicine. INTERVAL HISTORY: From a metabolic standpoint, the patient seems to be doing pretty well. That being said, mentation owens, he is still confused. Apparently, the family is pretty comfortable with this and suggest that he does this at home from time to time. His platelet count is finally coming back. He seems to be clearing some of his inflammatory profile a touch better. Unfortunately, the bilirubin continues to trend upward. GI consultation has been placed and I appreciate their recommendations. Otherwise, there has been no interval change to his condition. PHYSICAL EXAMINATION: VITAL SIGNS: Afebrile, pulse 78, blood pressure 133/77, respirations 23, saturation 100% on room air. GENERAL: The patient is awake and alert, in no apparent distress. LUNGS: Good air entry bilaterally. No prolonged expiratory phase or wheezing is appreciated. HEART: Normal rate. Regular. ABDOMEN: Soft. Tender to palpation throughout. No rebound or guarding is present. MUSCULOSKELETAL: No cyanosis or clubbing. There is no pitting in the bilateral lower extremities. NEUROLOGIC: Grossly nonfocal. LABORATORY DATA: WBC 5.9, hemoglobin 10.4 and stable, platelets 101,000 and rebounding. INR 1.2. Creatinine 1.54, once again up trending, BUN 61. Basic metabolic profile is otherwise unremarkable. Phosphorus 3.3. Total bilirubin continues to trend upward to 18 with a direct bilirubin component that is also trending upward to 11. GGT 46, AST and ALT are uptrending. Alkaline phosphatase is stable. Hepatitis serologies are completely unremarkable. Multiple additional studies are currently pending. ASSESSMENT: 1. Acute hypoxic respiratory failure, resolved. 2. Gross peritonitis secondary to enteric leak, status post laparotomy and subsequent washout with closure. 3. Pancytopenia, improving. 4. Acute kidney injury, stable. 5. Elevated bilirubin level. DISCUSSION AND PLAN: Supportive care will be continued. We will continue to get him out of bed into a chair 1 to 2 times on a daily basis and increase as tolerated. We will continue working with physical therapy. I appreciate GI recommendations. Pulmonary/Critical Care will continue to follow along in this location. We will trend the laboratories through time, and I will check an ammonia with tomorrow morning's laboratories. Job ID: [id number]
--- NOTE | 2019-11-06 12:10 | PRG ---
DATE OF SERVICE: 11/06/2019 SUBJECTIVE: The patient is better. He is awake, but confused, but that is baseline. He is putting out about 150 mL of fluid from his ostomy. OBJECTIVE: VITAL SIGNS: His temperature is afebrile. His pulse is 62, blood pressure 126/71. GENERAL: He is awake, but confused. LUNGS: Clear. HEART: Regular rate and rhythm. ABDOMEN: Soft. No significant tenderness. LABORATORY DATA: His white count is 5.9, H and H of 10 and 31, platelet count of 101. His bilirubin is 18, AST of 217, ALT of 169. ASSESSMENT: Hepatic failure, encephalopathy. PLAN: Continue supportive care. Job ID: [id number]
--- NOTE | 2019-11-06 15:20 | PRG ---
DATE OF SERVICE: 11/06/2019 SUBJECTIVE: Mr. Pérez remains confused. He can tell me his name and that is about it. OBJECTIVE: VITAL SIGNS: Temperature is 97.9, pulse 57, blood pressure 144/71. GENERAL: He is jaundiced, sleepy, but arousable. HEENT: His eyes have scleral icterus. LUNGS: Clear to auscultation bilaterally. HEART: Regular rate and rhythm without murmur. ABDOMEN: Tender diffusely. Bowel sounds are present. EXTREMITIES: Trace lower extremity edema. He did have small amount of output from his ostomy. LABORATORY DATA: White blood cell count 5.9, hemoglobin 10.4, platelets 101. INR 1.2, creatinine 1.54, bilirubin 18, GGT 46, AST 217, ALT 169, alkaline phosphatase 75, albumin 2.8. IMPRESSION: 1. Abnormal liver function tests. He has marked rise in his bilirubin, however, alkaline phosphatase and GGT are normal indicating more of a hepatocellular injury pattern without cholestasis. His transaminases are not as elevated as would be expected if this was an ischemic injury. Drug-induced liver injury would be more likely. Sepsis could also cause this, but the change in the liver test is delayed from that. I would favor drug-induced liver injury is the most likely cause of the elevated bilirubin at this point. There is no hemolysis or acute anemia suggesting reabsorption of hematoma. 2. Encephalopathy. He does not have obvious asterixis, but is less cooperative with exam today. We will check an ammonia level. If he truly had acute liver failure, then encephalopathy would be from cerebral edema rather than elevated ammonia, but his INR is normal and his transaminases really never were significantly elevated prior to today. We will need to follow the trend of the INR. RECOMMENDATIONS: 1. Zosyn and fluconazole have been stopped. 2. I doubt the TPN was the cause of his elevated liver tests given that he had only been on it for short period and he was not getting daily lipids and he is really not cholestatic. He has more of a hepatocellular injury pattern. If he needed to restart TPN, he could. 3. We will check his ammonia level in the morning in the trend of his INR as well. Otherwise, continue supportive care. Job ID: [id number]
[2019-11-06] MEDS: Micafungin 150 MG in Sodium Chloride 0.9% 100 ML IVPB SCH (16:00)
[2019-11-06] MEDS: Enoxaparin Sodium 40 MG/0.4 ML SYRINGE SC SCH (20:34)
[2019-11-07] MEDS: Morphine 2 MG/ML SYRINGE SLOW IVP PRN (03:08)
[2019-11-07 04:28] LABS: INR-International Normal Ratio 1.1; Prothrombin Time 14.6 SEC (12.0-14.7)
[2019-11-07 04:57] LABS: ALT (SGPT) 363 U/L (8-55); AST (SGOT) 531 U/L (5-34); Albumin 2.5 g/dL (3.4-4.8); Alkaline Phosphatase 80 U/L (40-110); Bilirubin, Total 15.8 mg/dL (0.2-1.2); Protein, Total 4.7 g/dL (5.8-8.1)
[2019-11-07 05:00] LABS: Anion Gap 12 mmol/L (10-20); BUN (Urea Nitrogen) 59 mg/dL (8.4-25.7); Calc. Creatinine Clearance 65 mL/min (70-130); Calcium 9.3 mg/dL (7.8-10.44); Carbon Dioxide 24 mmol/L (23-31); Chloride 112 mmol/L (98-107); Estimated GFR-MDRD 54; Glucose 197 mg/dL (83-110); Potassium 3.5 mmol/L (3.5-5.1); Sodium 144 mmol/L (136-145)
[2019-11-07 05:30] LABS: #Lymphocytes 1.4 thou/uL (1.20-3.40); #Monocytes 0.1 thou/uL (0.11-0.59); #Neutrophils 4.2 thou/uL (1.40-6.50); %Eosinophils 0.6 % (0.0-10.0); %Lymphocytes 24.9 % (21.0-51.0); %Neutrophils 73.5 % (42.0-75.0); Band 5 % (5-11); Hemoglobin 10.3 g/dL (14.0-18.0); Lymphocytes 10 % (21-51); MDiff Complete? YES; Mean Corpuscular HGB CONC 32.6 g/dL (32.0-36.0); Mean Platelet Volume 10.2 fL (7.4-10.4); Monocytes 4 % (0-10); Neutrophil 81 % (42-75); Platelet Count 116 thou/uL (130-400); Platelet Morphology Comment Appears Decreased; RBC Distribution Width 18.4 % (11.5-14.5); RBC Morphology Normal; Red Blood Cell (RBC) Count 3.32 mill/uL (4.70-6.10); White Blood Cell (WBC) Count 5.7 thou/uL (4.8-10.8)
[2019-11-07] MEDS: Meropenem 2 GM, Admixture Fee 1 EACH in Sodium Chloride 0.9% 100 ML IVPB SCH ×3 (06:11→22:40)
[2019-11-07] MEDS: Dextrose 5 %-0.45 % NaCl 1,000 ML IV SCH (06:11)
[2019-11-07 07:23] LABS: Bilirubin, Direct Greater than 10.0 mg/dL (0.1-0.3)
[2019-11-07] MEDS: Pantoprazole 40 MG VIAL IVP SCH (08:39)
[2019-11-07] MEDS: Insulin Regular 300 UNITS/3 ML VIAL SC PRN ×2 (11:06→16:07)
[2019-11-07] MEDS ORDERED: Ondansetron ODT 4 MG TAB SL PRN (12:45)
[2019-11-07] MEDS ORDERED: Furosemide 40 MG/4 ML VIAL SLOW IVP SCH (12:45)
[2019-11-07] MEDS ORDERED: Potassium Chloride 40 MEQ in Premix Bag 1 BAG IVPB SCH (12:45)
--- NOTE | 2019-11-07 12:56 | PRG ---
DATE OF SERVICE: 11/07/2019 SERVICE: Pulmonary Medicine INTERVAL HISTORY: The patient is doing really well from respiratory standpoint. Breathing comfortably. His mentation has improved a little bit. He appears a little less jaundiced today. PHYSICAL EXAMINATION: VITAL SIGNS: Afebrile. Pulse 76, blood pressure 152/82, respirations 30, and saturation 99%, currently on 2 L nasal cannula. GENERAL: The patient is awake and alert, in no apparent distress. LUNGS: Very good air entry. Dependent crackles are minimal. HEART: Normal rate, regular. ABDOMEN: Soft, nontender, nondistended. Bowel sounds are positive. MUSCULOSKELETAL: No cyanosis or clubbing. There is diffuse 1 to 2+ pitting throughout. NEUROLOGIC: Grossly nonfocal. LABORATORY DATA: WBC 5.7, hemoglobin 10.3, and platelets 116,000, continuing to rebound. INR 1.1. Total bilirubin is downtrending to 15.8, direct bilirubin has also improved to 10.0. AST and ALT continue to trend upward however. Ammonia is normal, alkaline phosphatase remains normal. Albumin 2.5. Sodium has trended downward to 144. Potassium 3.5. Creatinine has improved to 1.31. ASSESSMENT: 1. Acute hypoxic respiratory failure, resolved. 2. Gross peritonitis secondary to enteric leak, status post laparotomy and subsequent washout with closure. 3. Pancytopenia, improving. 4. Acute kidney injury, improving. 5. Elevated bilirubin, likely secondary to fluconazole. DISCUSSION AND PLAN: The most common issue here would have been a fluconazole side effect. Potassium will be replaced today. I will interrupt his D5 half NS, and put him on straight D5 water as I make an effort to diurese him over the next 24 hours. Hopefully, we can provide p.o. nutrition today as he has had significant output from his ostomy. If that is not feasible, restarting TPN would certainly be reasonable. He will remain in the ICU for the time being. Job ID: [id number]
[2019-11-07] MEDS: Dextrose 5% in Water 1,000 ML IV SCH ×2 (13:12→13:50)
--- NOTE | 2019-11-07 14:26 | PRG ---
DATE OF SERVICE: 11/07/2019 SUBJECTIVE: Mr. Pérez is a little bit more interactive today. He can tell me his name. OBJECTIVE: VITAL SIGNS: Pulse 63, blood pressure 139/79, and temperature 98.1. GENERAL: He is jaundiced. No acute distress. LUNGS: Clear to auscultation bilaterally. HEART: Regular rate and rhythm without murmur. ABDOMEN: Soft, diffusely tender. Bowel sounds are present. He did have 125 mL out through his ileostomy now. EXTREMITIES: No lower extremity edema. LABORATORY DATA: Hemoglobin 10.3. His INR is 1.1 today. Bilirubin 15.8, AST 531, ALT 363, alkaline phosphatase 80, and ammonia 28. IMPRESSION: Abnormal liver function tests. Most likely drug-induced liver injury. His Zosyn and fluconazole were discontinued and changed to alternative medications. I suspect that the TPN was not the primary source of the liver injury given that he had only been on this short period and he does not have cholestasis. He has a hepatocellular injury pattern to the liver tests. RECOMMENDATIONS: We will continue to follow the trend of the liver tests. The bilirubin appears to peak today. His INR remains normal. It does not appear to have hepatic encephalopathy. I would think that if he needs to restart TPN, he could at this point. Job ID: [id number]
--- NOTE | 2019-11-07 15:32 | PRG ---
DATE OF SERVICE: 11/07/2019 SUBJECTIVE: The patient is a little more alert today. He had a bit more out of his ostomy. He was having some pain on the left side, but is better now. OBJECTIVE: VITAL SIGNS: Pulse is 67 and blood pressure 139/85. GENERAL: He is more alert, still pretty yellow, jaundiced. ABDOMEN: Less distended. Ostomy is working better. The patient is very hungry. PLAN: Start clear liquids. Job ID: [id number]
[2019-11-07] MEDS: Micafungin 150 MG in Sodium Chloride 0.9% 100 ML IVPB SCH (16:06)
[2019-11-07] MEDS: Enoxaparin Sodium 40 MG/0.4 ML SYRINGE SC SCH (21:52)
[2019-11-08] MEDS: Morphine 2 MG/ML SYRINGE SLOW IVP PRN ×2 (03:51→22:18)
[2019-11-08 04:18] LABS: #Lymphocytes 1.4 thou/uL (1.20-3.40); #Monocytes 0.1 thou/uL (0.11-0.59); #Neutrophils 4.7 thou/uL (1.40-6.50); %Basophils 0.2 % (0.0-1.0); %Eosinophils 0.3 % (0.0-10.0); %Lymphocytes 22.6 % (21.0-51.0); %Monocytes 1.2 % (0.0-10.0); %Neutrophils 75.8 % (42.0-75.0); Hemoglobin 10.7 g/dL (14.0-18.0); Mean Corpuscular HGB CONC 33.1 g/dL (32.0-36.0); Mean Corpuscular Hemoglobin 31.2 pg (27.0-31.0); Mean Corpuscular Volume 94.1 fL (78.0-98.0); Mean Platelet Volume 10.8 fL (7.4-10.4); Platelet Count 142 thou/uL (130-400); RBC Distribution Width 18.2 % (11.5-14.5); Red Blood Cell (RBC) Count 3.43 mill/uL (4.70-6.10); White Blood Cell (WBC) Count 6.2 thou/uL (4.8-10.8)
[2019-11-08] MEDS: Dextrose 5% in Water 1,000 ML IV SCH ×2 (04:20→14:52)
[2019-11-08 04:23] LABS: INR-International Normal Ratio 1.1; Prothrombin Time 13.9 SEC (12.0-14.7)
[2019-11-08 04:37] LABS: Anion Gap 11 mmol/L (10-20); BUN (Urea Nitrogen) 53 mg/dL (8.4-25.7); Calc. Creatinine Clearance 68 mL/min (70-130); Carbon Dioxide 25 mmol/L (23-31); Chloride 111 mmol/L (98-107); Estimated GFR-MDRD 57; Glucose 180 mg/dL (83-110); Potassium 3.5 mmol/L (3.5-5.1); Sodium 143 mmol/L (136-145)
[2019-11-08 04:38] LABS: ALT (SGPT) 416 U/L (8-55); AST (SGOT) 441 U/L (5-34); Albumin 2.5 g/dL (3.4-4.8); Alkaline Phosphatase 100 U/L (40-110); Bilirubin, Direct 9.9 mg/dL (0.1-0.3); Bilirubin, Total 15.6 mg/dL (0.2-1.2)
[2019-11-08] MEDS: Meropenem 2 GM, Admixture Fee 1 EACH in Sodium Chloride 0.9% 100 ML IVPB SCH ×3 (07:07→21:19)
[2019-11-08] MEDS: Insulin Regular 300 UNITS/3 ML VIAL SC PRN (07:15)
[2019-11-08] MEDS ORDERED: Furosemide 40 MG/4 ML VIAL SLOW IVP SCH (09:00)
[2019-11-08] MEDS: Pantoprazole 40 MG VIAL IVP SCH (11:09)
--- NOTE | 2019-11-08 13:04 | PRG ---
DATE OF SERVICE: 11/08/2019 SUBJECTIVE: Mr. Beto troncoso is little more interactive today. He is jaundiced, no acute distress. OBJECTIVE: VITAL SIGNS: Temperature is 97.2, blood pressure 138/72, pulse 55. LUNGS: Clear to auscultation bilaterally. HEART: Regular rate and rhythm without murmur. ABDOMEN: Soft and tender in the lower abdomen but nondistended. Bowel sounds are present. He is having output from his ostomy. EXTREMITIES: No lower extremity edema. LABORATORY DATA: White blood cell count 6.2, hemoglobin 10.7, platelets 142, bilirubin 15.6. AST 441, ALT 416, albumin 2.5. IMPRESSION: 1. Abnormal liver function tests, most likely secondary to drug-induced liver injury. Other possibility would be ischemic hepatopathy. His liver tests appear to have peaked and plateaued. I expect patient to start trending down over the next few days. 2. Colon cancer, status post resection. RECOMMENDATIONS: 1. He has been advanced to a solid diet, which he is tolerating so far. 2. Continue to follow trend of his liver tests. Job ID: [id number]
--- NOTE | 2019-11-08 14:32 | PRG ---
DATE OF SERVICE: 11/08/2019 SUBJECTIVE: Jan Pérez is doing well today. He has been moved from ICU to [facility] over the weekend. Today is Friday. He feels much better. Family reports his mental status is better and his confusion is less. OBJECTIVE: VITAL SIGNS: Temperature 97.2 degrees, heart rate 63, blood pressure 163/85. Urine output has been excellent over the weekend. Ileostomy output 900 in the last 24 hours and urine output 3515 in the last 24 hours. He is on TPN and TKO IV fluids. Ileostomy output is much better and much more copious. LUNGS: Clear to auscultation. CARDIAC: Regular rate and rhythm without murmur or gallop. ABDOMEN: Soft. Midline wound looks good. Ileostomy healthy. Abundant ileostomy output. EXTREMITIES: Unremarkable. LABORATORY DATA: His white count is 6.2, hemoglobin 10.6, differential is essentially unremarkable, platelet count is improved to 142,000. His BUN is normalized at 11, creatinine 1.25, BUN 53, potassium 3.5. His direct bilirubin, however, is 15.6. AST and ALT are elevated. ASSESSMENT AND PLAN: 1. Jaundice. Continue observation. This should clear once enteral feedings are started. 2. Resolving ileus. Increase to full liquids. Advance to regular diet in the morning. 3. Deconditioning. Increase physical therapy. Rehab evaluation. Physical Therapy assessment. Anticipate hopefully the patient go home mid later week possibly to rehab pending evaluation. Job ID: [id number]
--- NOTE | 2019-11-08 16:38 | PRG ---
DATE OF SERVICE: 11/08/2019 SERVICE: Pulmonary Medicine. INTERVAL HISTORY: The patient is a little bit less yellow today. He denies any current chest discomfort, shortness of breath, fevers, or chills. The patient's family is happy with his mentation. It seems they have improved a little bit. There has been no interval change to his condition. PHYSICAL EXAMINATION: VITAL SIGNS: Afebrile. Pulse 63, blood pressure 163/85, respirations 18, saturation 96% on room air. GENERAL: The patient is awake and alert, in no apparent distress. LUNGS: Good air entry bilaterally. No prolonged expiratory phase or wheezing is appreciated. HEART: Normal rate, regular. ABDOMEN: Soft, nontender, and nondistended. Bowel sounds are positive. MUSCULOSKELETAL: No cyanosis or clubbing. There is no pitting in the bilateral lower extremities. NEUROLOGIC: Grossly nonfocal. LABORATORY DATA: WBC 6.2, hemoglobin 10.7 and stable, and platelets 142,000, which trended upward to the normal range. INR 1.1. PH 7.47, pCO2 is 31, PO2 is 64. AST is downtrending. ALT is up-trending. Alkaline phosphatase is gently up-trending. Total bilirubin is gently trending downward. Albumin 2.5, serum protein 5. ASSESSMENT: 1. Acute hypoxic respiratory failure, resolved. 2. Gross peritonitis secondary to enteric leak, status post laparotomy and subsequent washout with closure. 3. Pancytopenia, resolved. 4. Acute kidney injury, improving. 5. Elevated bilirubin level. DISCUSSION AND PLAN: The patient is doing fine from respiratory standpoint. His total bilirubin is roughly stable. He is much closer to euvolemia. As such, Lasix will be interrupted for the next 24 hours. His nutrition is being advanced gently. Critical Care will follow. Job ID: [id number]
[2019-11-08] MEDS: Sodium Chloride 0.45% 1,000 ML IV SCH (17:40)
[2019-11-08] MEDS: Micafungin 150 MG in Sodium Chloride 0.9% 100 ML IVPB SCH (17:40)
[2019-11-08] MEDS: Enoxaparin Sodium 40 MG/0.4 ML SYRINGE SC SCH (21:17)
[2019-11-08] MEDS: Tamsulosin HCl 0.4 MG CAP PO SCH (21:17)
[2019-11-09] MEDS: Morphine 2 MG/ML SYRINGE SLOW IVP PRN ×3 (04:33→23:47)
[2019-11-09 04:34] LABS: INR-International Normal Ratio 1.2; Prothrombin Time 14.7 SEC (12.0-14.7)
[2019-11-09 04:48] LABS: Anion Gap 12 mmol/L (10-20); BUN (Urea Nitrogen) 48 mg/dL (8.4-25.7); Calc. Creatinine Clearance 68 mL/min (70-130); Calcium 8.9 mg/dL (7.8-10.44); Carbon Dioxide 23 mmol/L (23-31); Chloride 108 mmol/L (98-107); Estimated GFR-MDRD 57; Glucose 179 mg/dL (83-110); Potassium 3.5 mmol/L (3.5-5.1); Sodium 139 mmol/L (136-145)
[2019-11-09 04:50] LABS: ALT (SGPT) 273 U/L (8-55); AST (SGOT) 168 U/L (5-34); Albumin 2.4 g/dL (3.4-4.8); Alkaline Phosphatase 120 U/L (40-110); Bilirubin, Total 14.9 mg/dL (0.2-1.2)
[2019-11-09 05:23] LABS: Band 19 % (5-11); Hemoglobin 10.4 g/dL (14.0-18.0); Lymphocytes 7 % (21-51); MDiff Complete? YES; Mean Corpuscular HGB CONC 31.8 g/dL (32.0-36.0); Mean Corpuscular Hemoglobin 29.8 pg (27.0-31.0); Mean Corpuscular Volume 93.7 fL (78.0-98.0); Mean Platelet Volume 10.1 fL (7.4-10.4); Monocytes 4 % (0-10); Myelocyte 1 % (0-0); Neutrophil 69 % (42-75); Platelet Count 197 thou/uL (130-400); RBC Distribution Width 17.4 % (11.5-14.5); Schistocytes SLIGHT = 2-5 cells (100X) (0-1/hpf)
[2019-11-09] MEDS: Meropenem 2 GM, Admixture Fee 1 EACH in Sodium Chloride 0.9% 100 ML IVPB SCH ×3 (05:54→21:05)
[2019-11-09] MEDS: Pantoprazole 40 MG VIAL IVP SCH (09:25)
[2019-11-09] MEDS: Sodium Chloride 0.45% 1,000 ML IV SCH (09:25)
[2019-11-09 11:38] LABS: Smooth Muscle Total ABS 12 Units (0-19)
--- NOTE | 2019-11-09 15:33 | PRG ---
DATE OF SERVICE: 11/09/2019 SUBJECTIVE: Jan Pérez is doing well today. He is in IMCU. Family reports him more alert. He did spend some time in a chair. Physical Therapy is working with him on ambulation. He is consuming a full liquid diet, but not consuming much. He is tolerating what he consumes. Heart rate 66, 129/80. White count 8, hemoglobin 10. Basic metabolic profile normal, BUN 48, sodium 139, potassium 3.5. Bilirubin is down to 14.9, down from 15.6 yesterday. Transaminases are improved. OBJECTIVE: LUNGS: Clear to auscultation. CARDIAC: Regular rate and rhythm. No murmur or gallop. ABDOMEN: Soft, nontender except for minimal tenderness. No peritoneal signs. Ileostomy healthy. Wound suction dressing removed and changed and reported wound looks good. EXTREMITIES: Unremarkable. ASSESSMENT AND PLAN: 1. Elevated liver function test probably medically related. Diflucan has been discontinued. Zosyn discontinued. Meropenem continues. We will stop the micafungin as I do not think that is necessary more. 2. GI tract immediate function resumed. TPN discontinued over the weekend. I am concerned over LFTs. Continue enteral feedings with protein supplements as able. 3. Deconditioning. Continue physical therapy activity. We may need to consider short-term rehab stay. We will see how he does with therapy over the next few days. We will start procedure for transfer to rehab postoperatively in case this is necessary. Job ID: [id number]
--- NOTE | 2019-11-09 18:00 | PRG ---
DATE OF SERVICE: 11/09/2019 SERVICE: Pulmonary Medicine. INTERVAL HISTORY: The patient is doing really well from respiratory standpoint. This is the first day he was able to get up into a bedside chair. He is extraordinarily weak, but he is able to do this maneuver. He had no events overnight. Nurse reports no events. Otherwise, urine output has been okay, he has been tolerating feeds. PHYSICAL EXAMINATION: VITAL SIGNS: Afebrile, pulse 66, blood pressure 126/75, respirations 28, saturation 99%, currently on room air. GENERAL: The patient is awake and alert, in no apparent distress. LUNGS: Wonderful air entry with no prolonged expiratory phase or wheezing present. HEART: Normal rate and regular. ABDOMEN: Soft, nontender, and nondistended. Bowel sounds positive. MUSCULOSKELETAL: No cyanosis or clubbing. There is 1 to 2+ pitting at the hips. No pitting in the lower extremities. NEUROLOGIC: Grossly nonfocal. LABORATORY DATA: WBC 8.0, hemoglobin 10.4, and platelets 197,000, rebounding beautifully. Band count 19% on top of 69% neutrophils. INR 1.2. AST and ALT are downtrending. Alkaline phosphatase is gently up trending. Creatinine is stable at 1.25. Basic metabolic profile is otherwise unremarkable. Smooth muscle antibodies are low. ASSESSMENT: 1. Acute hypoxic respiratory failure, resolved. 2. Gross peritonitis secondary to enteric leak, status post laparotomy and subsequent washout with closure. 3. Pancytopenia, resolved. 4. Acute kidney injury, resolved. 5. Elevated bilirubin, likely medication effect. DISCUSSION AND PLAN: Pulmonary/Critical Care will continue to follow very closely. If his strength continues to improve, he can be considered for transition to the floor tomorrow. We will continue our mobilization efforts. Hopefully, the fluconazole was the thing that created our problem here. It has been leveling off and downtrending ever since it was interrupted. IV fluids will be continued gently until he is tolerating full diet. At this point, no Lasix or aggressive fluid resuscitation will be provided. Job ID: [id number]
[2019-11-09] MEDS: Enoxaparin Sodium 40 MG/0.4 ML SYRINGE SC SCH (20:55)
[2019-11-09] MEDS: Tamsulosin HCl 0.4 MG CAP PO SCH (20:55)
--- NOTE | 2019-11-09 22:49 | PRG ---
DATE OF SERVICE: 11/09/2019 SUBJECTIVE: Mr. Pérez is tolerating his diet and having output from his ostomy. OBJECTIVE: GENERAL: He is jaundiced. ABDOMEN: bee tender diffusely. VITAL SIGNS: He is afebrile. Blood pressure 148/63, pulse 78. LABORATORY DATA: INR is 1.2. Bilirubin 14.9, AST 163, ALT 273, alkaline phosphatase 120, albumin 2.4. IMPRESSION: Abnormal liver function tests, most likely secondary to drug-induced liver injury. Fluconazole and Zosyn were discontinued. It is possible that this could have been an ischemic hepatopathy, but this is less likely. His liver tests appeared to have peaked and are trending down now. RECOMMENDATIONS: Continue to monitor the trend of the liver tests. Job ID: [id number]
[2019-11-10 04:12] LABS: #Eosinphils 0.1 thou/uL (0.0-0.7); #Lymphocytes 1.8 thou/uL (1.20-3.40); #Monocytes 0.1 thou/uL (0.11-0.59); #Neutrophils 4.5 thou/uL (1.40-6.50); %Basophils 0.6 % (0.0-1.0); %Eosinophils 0.8 % (0.0-10.0); %Lymphocytes 27.5 % (21.0-51.0); %Neutrophils 69.1 % (42.0-75.0); Hemoglobin 9.8 g/dL (14.0-18.0); Mean Corpuscular HGB CONC 32.9 g/dL (32.0-36.0); Mean Corpuscular Volume 94.3 fL (78.0-98.0); Mean Platelet Volume 8.9 fL (7.4-10.4); Platelet Count 209 thou/uL (130-400); RBC Distribution Width 16.9 % (11.5-14.5); Red Blood Cell (RBC) Count 3.14 mill/uL (4.70-6.10); White Blood Cell (WBC) Count 6.5 thou/uL (4.8-10.8)
[2019-11-10 04:32] LABS: Anion Gap 10 mmol/L (10-20); BUN (Urea Nitrogen) 42 mg/dL (8.4-25.7); Calc. Creatinine Clearance 74 mL/min (70-130); Calcium 8.7 mg/dL (7.8-10.44); Carbon Dioxide 23 mmol/L (23-31); Chloride 107 mmol/L (98-107); Estimated GFR-MDRD 63; Glucose 138 mg/dL (83-110); Potassium 3.6 mmol/L (3.5-5.1); Sodium 136 mmol/L (136-145)
[2019-11-10 04:35] LABS: ALT (SGPT) 197 U/L (8-55); AST (SGOT) 131 U/L (5-34); Albumin 2.2 g/dL (3.4-4.8); Alkaline Phosphatase 124 U/L (40-110); Bilirubin, Total 15.4 mg/dL (0.2-1.2); Protein, Total 4.8 g/dL (5.8-8.1)
[2019-11-10] MEDS: Meropenem 2 GM, Admixture Fee 1 EACH in Sodium Chloride 0.9% 100 ML IVPB SCH ×2 (06:39→15:39)
[2019-11-10] MEDS: Glimepiride 4 MG TAB PO SCH (09:48)
[2019-11-10] MEDS: Morphine 2 MG/ML SYRINGE SLOW IVP PRN ×2 (10:20→21:47)
[2019-11-10] MEDS: Sodium Chloride 0.45% 1,000 ML IV SCH (12:39)
[2019-11-10] MEDS ORDERED: Potassium Chloride 20 MEQ TAB PO SCH (14:15)
--- NOTE | 2019-11-10 14:52 | PRG ---
DATE OF SERVICE: 11/10/2019 SERVICE: Pulmonary Medicine. INTERVAL HISTORY: The patient is doing really well from respiratory standpoint. He remains on room air. His strength is improving a little bit day by day and his mentation is much improved. He cannot provide any additional elements of the history. Nursing reports no overnight events. PHYSICAL EXAMINATION: VITAL SIGNS: Afebrile, pulse 100, blood pressure 148/77, respirations 31, and saturation 100%, currently on room air. GENERAL: The patient is awake and alert, in no apparent distress. LUNGS: Wonderful air entry with no prolonged expiratory phase or wheezing present. HEART: Normal rate, regular. ABDOMEN: Soft, nontender, and nondistended. Bowel sounds are positive. MUSCULOSKELETAL: No cyanosis or clubbing. There is no pitting in the bilateral lower extremities. NEUROLOGIC: Grossly nonfocal. LABORATORY DATA: WBC 6.5, hemoglobin 9.8, and platelets 209,000, beautifully rebounding. INR 1.2. Creatinine 1.15, which is gently downtrending. BUN 42, is also improving. Potassium 3.6, sodium 136. Total bilirubin 15.4, once again trending upward, direct bilirubin is also trending upward. AST and ALT continued to improve while the alkaline phosphatase trickles upward. ASSESSMENT: 1. Acute hypoxic respiratory failure, resolved. 2. Gross peritonitis secondary to enteric leak, status post laparotomy and subsequent washout with end-ileostomy formation and closure. 3. Acute kidney injury, resolved. 4. Elevated bilirubin, suspect medication effect. DISCUSSION AND PLAN: Potassium will be replaced. I will give the patient laboratory holiday tomorrow morning. Pulmonary/Critical Care will continue to follow while the patient remains in this location, though from my perspective, he is likely stable for transition to the regular floor. The elevated bilirubin is more than likely associated with backing off IV fluids. Job ID: [id number]
--- NOTE | 2019-11-10 15:07 | PRG ---
DATE OF SERVICE: 11/10/2019 SUBJECTIVE: Jan Pérez is in IMCU. He is doing well. He is more alert; however, he remains jaundiced. OBJECTIVE: VITAL SIGNS: 97.8 degrees, 100 heart rate, and 148/77. LUNGS: Clear to auscultation. No wheezing. CARDIAC: Regular rate and rhythm. ABDOMEN: Soft. Mild tenderness. Midline incision looks good with RUI wound suction device in place. EXTREMITIES: Unremarkable. Ileostomy, good output. LABORATORY DATA: White count 6 and hemoglobin 9.8. Basic metabolic profile is normal with BUN slightly elevated at 42. His bilirubin is 15.4, 14.9 yesterday, and 15.6 the day before. AST is diminished from 168 to 131 today. An ALT diminished from 273 yesterday to 197 today. Alkaline phosphatase remains elevated. Previous ultrasound revealed nonobstructive pattern. ASSESSMENT AND PLAN: 1. Cholestasis. His Diflucan and TPN were discontinued over the weekend. Micafungin discontinued yesterday. He remains on meropenem. Overall, he is doing well and he wants something more solid to eat, the taste of the full liquids does not agree with him. We will plan to advance him to a diabetic regular diet. Speech is seeing him and evaluated him and he was stable for that advancement. 2. Nonobstructive jaundice, probably cholestasis. Continue observation. Job ID: [id number]
[2019-11-10 15:15] LABS: Alpha-1-Antitrypsin 272 mg/dL (101-187)
--- NOTE | 2019-11-10 18:37 | PRG ---
DATE OF SERVICE: 11/10/2019 SUBJECTIVE: Mr. Pérez again day-by-day seems to be improving with his mental status. He is oriented to his name and place, but not year today. His family feels like he is improving. OBJECTIVE: VITAL SIGNS: Temperature is 96.8, blood pressure 142/71, pulse 65. GENERAL: He is jaundiced, in no acute distress. LUNGS: Clear to auscultation bilaterally. HEART: Regular rate and rhythm without murmur. ABDOMEN: Soft. No significant tenderness today, which has markedly improved from yesterday and the day before exam. His bowel sounds are present. EXTREMITIES: No lower extremity edema. LABORATORY DATA: His bilirubin is 15.4, AST 131, ALT 197, albumin 2.2. IMPRESSION: Abnormal liver function test. Most likely acute drug-induced liver injury. Fluconazole and Zosyn were discontinued. His bilirubin has plateaued. His transaminases rapidly fannie and then peaked and continuing to improve. He did not have significant cholestasis. His alkaline phosphatase just increased slightly over the last couple of days. I think that this is less likely related to the TPN than to either other drug induced liver injury versus acute ischemic hepatopathy. Overall, I think this is drug-induced liver injury. RECOMMENDATIONS: Continue to follow trend of his liver tests. He is tolerating an oral diet. I expect his bilirubin will slowly improve over the next several days as his transaminases improved first. Job ID: [id number]
[2019-11-10] MEDS: Tamsulosin HCl 0.4 MG CAP PO SCH (20:06)
[2019-11-10] MEDS: Enoxaparin Sodium 40 MG/0.4 ML SYRINGE SC SCH (20:06)
[2019-11-10] MEDS: MEROPENEM 1 GM/50 ML 1 GM in Premix Bag 1 BAG IVPB SCH (21:48)
[2019-11-10] MEDS ORDERED: Meropenem 1 GM in Sodium Chloride 0.9% 100 ML IVPB SCH (22:00)
[2019-11-11] MEDS: Morphine 2 MG/ML SYRINGE SLOW IVP PRN ×3 (02:05→21:42)
[2019-11-11] MEDS: Sodium Chloride 0.45% 1,000 ML IV SCH (03:48)
[2019-11-11] MEDS: MEROPENEM 1 GM/50 ML 1 GM in Premix Bag 1 BAG IVPB SCH ×3 (05:40→20:59)
[2019-11-11] MEDS: Dextrose 50% Abboject 50 ML SYRINGE IVP PRN (06:25)
[2019-11-11] MEDS: Dextrose 5 %-0.45 % NaCl 1,000 ML IV SCH ×2 (09:45→21:02)
[2019-11-11] MEDS: Glimepiride 4 MG TAB PO SCH (11:02)
[2019-11-11] MEDS: traMADol HCl 50 MG TAB PO PRN (11:25)
--- NOTE | 2019-11-11 14:31 | PRG ---
DATE OF SERVICE: 11/11/2019 SERVICE: Pulmonary Medicine. INTERVAL HISTORY: The patient is doing really well from respiratory standpoint. Denies any current chest discomfort, fevers, or chills. Otherwise, he is in his usual state of health. He is walking with Physical Therapy. His strength is improving day by day. PHYSICAL EXAMINATION: VITAL SIGNS: Afebrile, pulse 81, blood pressure 110/67, respirations 26, and saturation 98% on room air. GENERAL: The patient is awake and alert, in no apparent distress. LUNGS: Good air entry bilaterally. No prolonged expiratory phase or wheezing is appreciated. HEART: Normal rate, regular. ABDOMEN: Soft, nontender, and nondistended. Bowel sounds are positive. MUSCULOSKELETAL: No cyanosis or clubbing. No pitting in the bilateral lower extremities. NEUROLOGIC: Grossly nonfocal. ASSESSMENT: 1. Acute hypoxic respiratory failure, resolved. 2. Gross peritonitis secondary to enteric leak, status post laparotomy and subsequent washout with end-ileostomy formation and closure. 3. Acute kidney injury, resolved. 4. Elevated bilirubin, suspect medication effect. DISCUSSION AND PLAN: At this point, the patient remains stable for transition out of the ICU to the medical unit. Pulmonary will follow in this location. Laboratories will be repeated tomorrow morning. Job ID: [id number]
--- NOTE | 2019-11-11 16:49 | PRG ---
DATE OF SERVICE: 11/11/2019 SUBJECTIVE: Mr. Pérez is doing well today. He is more alert. He is not eating much, however. He is taking a few drinks of protein supplements between meals and eating some of his meals. There has been no nausea or vomiting. He has ambulated with therapy, although weak. He has been up in a chair. He remains jaundiced and icteric. OBJECTIVE: VITAL SIGNS: Temperature 98.3 degrees, blood pressure 110/67, heart rate 81, ileostomy output acceptable, urine output 2200 in last 24 hours. LUNGS: Clear to auscultation. CARDIAC: Regular rate and rhythm. ABDOMEN: Soft, minimal tenderness. EXTREMITIES: Unremarkable. LABORATORY DATA: None. ASSESSMENT AND PLAN: 1. Jaundice, medication related, peritonitis related. Slow resolving. Labs were not checked today. We will check liver function test tomorrow. 2. Deconditioning. Continue therapy. 3. Good ileostomy function, but poor appetite. Continue dietary efforts. 4. Probably could plan to move to rehab next week if he is accepted. 5. Continue IV fluids until nutritional input is better. Job ID: [id number]
[2019-11-11 18:03] LABS: EliA Vaculitis New Method **** NEW METHOD ****; Mitochondrial Ab 0.7 U/mL (<4 Negative)
--- NOTE | 2019-11-11 19:30 | PRG ---
DATE OF SERVICE: 11/11/2019 SUBJECTIVE: Mr. Montoya is tolerating his diet. He is not eating a lot yet. OBJECTIVE: He is jaundiced. His abdomen is soft. Minimal tenderness now. No new labs today. IMPRESSION: Abnormal liver function test. Thought to most likely be secondary to drug-induced liver injury. His bilirubin spiked quickly and has plateaued and then his transaminases spiked and went back down quickly. We will continue to follow the trend of his liver tests and recheck them tomorrow. No specific intervention otherwise at this point. Job ID: [id number]
[2019-11-11] MEDS: Tamsulosin HCl 0.4 MG CAP PO SCH (20:59)
[2019-11-11] MEDS: Enoxaparin Sodium 40 MG/0.4 ML SYRINGE SC SCH (20:59)
[2019-11-12] MEDS: Morphine 2 MG/ML SYRINGE SLOW IVP PRN (03:34)
[2019-11-12 03:50] LABS: #Basophils 0.1 thou/uL (0.0-0.2); #Eosinphils 0.1 thou/uL (0.0-0.7); #Lymphocytes 2.1 thou/uL (1.20-3.40); #Monocytes 0.2 thou/uL (0.11-0.59); #Neutrophils 4.9 thou/uL (1.40-6.50); %Basophils 1.6 % (0.0-1.0); %Lymphocytes 28.7 % (21.0-51.0); %Monocytes 2.8 % (0.0-10.0); Hemoglobin 9.6 g/dL (14.0-18.0); Mean Corpuscular HGB CONC 32.3 g/dL (32.0-36.0); Mean Corpuscular Hemoglobin 30.4 pg (27.0-31.0); Mean Corpuscular Volume 94.1 fL (78.0-98.0); Mean Platelet Volume 8.4 fL (7.4-10.4); Platelet Count 217 thou/uL (130-400); RBC Distribution Width 16.1 % (11.5-14.5); Red Blood Cell (RBC) Count 3.14 mill/uL (4.70-6.10); White Blood Cell (WBC) Count 7.4 thou/uL (4.8-10.8)
[2019-11-12 04:12] LABS: ALT (SGPT) 128 U/L (8-55); AST (SGOT) 88 U/L (5-34); Alkaline Phosphatase 150 U/L (40-110); Anion Gap 9 mmol/L (10-20); BUN (Urea Nitrogen) 30 mg/dL (8.4-25.7); Bilirubin, Total 16.2 mg/dL (0.2-1.2); Calc. Creatinine Clearance 81 mL/min (70-130); Calcium 8.7 mg/dL (7.8-10.44); Carbon Dioxide 20 mmol/L (23-31); Chloride 106 mmol/L (98-107); Estimated GFR-MDRD 69; Globulin 2.8 g/dL (2.4-3.5); Glucose 186 mg/dL (83-110); Protein, Total 4.8 g/dL (5.8-8.1); Sodium 131 mmol/L (136-145)
[2019-11-12] MEDS: MEROPENEM 1 GM/50 ML 1 GM in Premix Bag 1 BAG IVPB SCH (05:47)
[2019-11-12] MEDS: Glimepiride 4 MG TAB PO SCH (07:37)
--- NOTE | 2019-11-12 10:55 | PRG ---
DATE OF SERVICE: 11/12/2019 SUBJECTIVE: Mr. Pérez is waiting for transfer to the surgery floor, waiting on bed availability. Orders written yesterday. He is awake and alert. Family reports when he is given morphine, he sleeps. He has Ultram and Tylenol p.o. ordered. I have discontinued his morphine. OBJECTIVE: VITAL SIGNS: Heart rate 68, blood pressure 142/76. LUNGS: Clear to auscultation. CARDIAC: Rhythm without murmur or gallop. ABDOMEN: Soft. Ileostomy, healthy output. Voss catheter is in place. It is ordered to be removed yesterday. LABORATORY DATA: White count 7 and hemoglobin 9.6. Bilirubin is 16.2, essentially unchanged from yesterday. AST and ALT are improved, relative to yesterday. Sodium down to 131; potassium 4.0; BUN improved to 30, down from 42 yesterday; creatinine is normal at 1.05. ASSESSMENT AND PLAN: 1. Acute kidney injury, improved. Renal function almost normalized. Urine output is good. Voss is in place. We will work towards removing that in the next day or two. He has been on his Flomax. He has a history of benign prostatic hypertrophy and urinary retention earlier this hospitalization. 2. Good gastrointestinal function. Normal white count. Afebrile. Consider discontinuing the meropenem. 3. Deconditioning. Continue physical therapy. Plan to go to rehab next week. 4. Steatosis, improving liver function test. We will check his labs again on Friday. Job ID: [id number]
--- NOTE | 2019-11-12 13:12 | PRG ---
DATE OF SERVICE: 11/12/2019 SUBJECTIVE: Mr. Pérez fed himself some hamburger today. He has no acute complaints. OBJECTIVE: GENERAL: He is jaundiced. ABDOMEN: Soft. LABORATORY DATA: His bilirubin remains elevated at 16.2. His AST is 88, ALT 128, alkaline phosphatase 150, and albumin 2.0. IMPRESSION: Abnormal liver function tests. Suspected drug-induced liver injury. His transaminases continued to trend down. However, his bilirubin has plateaued and we are awaiting improvement in that. RECOMMENDATIONS: I will follow back up on Friday and recheck his liver tests then. Dr. Rm will be rounding over the weekend. Please call him if needed. Job ID: [id number]
[2019-11-12 14:18] VITALS: BMI 25.3
[2019-11-12] MEDS: traMADol HCl 50 MG TAB PO PRN (14:31)
[2019-11-12] MEDS: Dextrose 5 %-0.45 % NaCl 1,000 ML IV SCH (14:32)
--- NOTE | 2019-11-12 17:36 | PRG ---
DATE OF SERVICE: 11/12/2019 INTERVAL HISTORY: The patient is doing okay from respiratory standpoint. Breathing comfortably. Otherwise, there has been no interval change to his condition. His sodium is a little bit lower today. He is tolerating more p.o. Otherwise, nurse reports no overnight events. PHYSICAL EXAMINATION: VITAL SIGNS: Afebrile, pulse 91, blood pressure 136/84, respirations 23, saturation 96%, currently on room air. GENERAL: The patient is awake and alert, in no apparent distress. LUNGS: Decent air entry without any prolonged expiratory phase or wheezing present. HEART: Normal rate, regular. ABDOMEN: Soft, nontender, nondistended. Bowel sounds are positive. MUSCULOSKELETAL: No cyanosis or clubbing. There is no pitting in bilateral lower extremities. NEUROLOGIC: Grossly nonfocal. LABORATORY DATA: WBC 7.4, hemoglobin 9.6, and platelets 217,000 and roughly stable. Basic metabolic profile is essentially unremarkable and/or downtrending with a BUN of 30, creatinine 1.05 and gently downtrending. AST and ALT have improved. The alkaline phosphatase is trickling upward. Total bilirubin level 16.2. ASSESSMENT: 1. Acute hypoxic respiratory failure, resolved. 2. Gross peritonitis secondary to enteric leak, status post laparotomy and subsequent washout with end-ileostomy and closure. 3. Acute kidney injury, resolved. 4. Elevated bilirubin, suspect medication effect. DISCUSSION AND PLAN: The patient's alkaline phosphatase continues to trend up with AST and ALT are improving. He has cleared sepsis profile, his mentation is improving as is his strength. As such, supportive measures will be continued through time. We will give a laboratory holiday through the weekend. Dr. Hoover is aviation operations specialist over the weekend, so should the patient get into any significant trouble, please give him a phone call. Otherwise, I will continue to follow intermittently during this hospital stay. Job ID: [id number]
[2019-11-12] MEDS: Dextrose 5 % And 0.9 % NaCl 1,000 ML IV SCH (18:30)
[2019-11-12] MEDS: Tamsulosin HCl 0.4 MG CAP PO SCH (21:06)
[2019-11-12] MEDS: Enoxaparin Sodium 40 MG/0.4 ML SYRINGE SC SCH (21:06)
[2019-11-13] MEDS: traMADol HCl 50 MG TAB PO PRN ×3 (02:09→12:09)
[2019-11-13] MEDS: Glimepiride 4 MG TAB PO SCH (08:07)
[2019-11-13] MEDS: Dextrose 5 % And 0.9 % NaCl 1,000 ML IV SCH ×2 (08:17→20:33)
[2019-11-13] MEDS: Insulin Regular 300 UNITS/3 ML VIAL SC PRN (12:15)
[2019-11-13] MEDS ORDERED: Iopamidol 370 76% 50 ML VIAL FS ONE (14:20)
[2019-11-13] MEDS ORDERED: Iopamidol-370 76% 500 ML 1 ML ONE (14:20)
--- NOTE | 2019-11-13 16:21 | PRG ---
DATE OF SERVICE: 11/13/2019 HISTORY: A 74-year-old male status post laparoscopic assisted low-anterior resection for rectal cancer with a protective diverting ileostomy. Pathology revealed no evidence of residual rectal cancer after deepa-adjunctive chemoradiation therapy. Unfortunately, postoperatively, he developed an enteric leak requiring repeat operation, open abdomen ABThera, and subsequent washout and closure. His loop ileostomy was converted to an end ileostomy. He has convalesced, done well. His acute kidney injury has improved. His BUN is 30, creatinine otherwise normal. Urine output is good. His appetite has been poor. He continues to be jaundiced. His antibiotics were discontinued yesterday. He continues to have some mild abdominal tenderness diffusely and although he is not having any abdominal pain. He does have the tenderness when he is examined and what he calls soreness does limit his mobility. His appetite has been poor, although slightly improving. Ileostomy output has been good, but he is not eating much of his regular meals, but has been consuming increased amounts of protein supplements. OBJECTIVE: LUNGS: Clear to auscultation. CARDIAC: Regular rate and rhythm. ABDOMEN: Soft. Wound suction device to be changed to a VAC type dressing due to drainage from his wound. Family reports that this is soaking the sheets before this dressing was applied. The family describes the drainage as yellowish drainage. This may be consistent with his jaundice and ascites. My concern that he is at risk for fascial dehiscence, although his current wound VAC canister does not have much fluid in it. ASSESSMENT AND PLAN: 1. Wound leak, requiring wound VAC. We will check his wound Friday with his VAC change and make further recommendations pending that. 2. Persistent abdominal tenderness on exam, limiting his mobility with persistent anorexia. We will obtain a CT scan of the abdomen and pelvis with p.o. and IV contrast. We will recheck his renal function daily as well as hepatic functions in his withdrawn labs. 3. I have discontinued his IV antibiotics and antifungal yesterday. Job ID: [id number]
[2019-11-13 16:29] LABS: ALT (SGPT) 95 U/L (8-55); AST (SGOT) 73 U/L (5-34); Alkaline Phosphatase 145 U/L (40-110); Anion Gap 8 mmol/L (10-20); BUN (Urea Nitrogen) 25 mg/dL (8.4-25.7); Bilirubin, Total 15.1 mg/dL (0.2-1.2); Calc. Creatinine Clearance 88 mL/min (70-130); Calcium 8.9 mg/dL (7.8-10.44); Carbon Dioxide 21 mmol/L (23-31); Chloride 106 mmol/L (98-107); Estimated GFR-MDRD 77; Globulin 2.7 g/dL (2.4-3.5); Glucose 181 mg/dL (83-110); Potassium 4.2 mmol/L (3.5-5.1); Protein, Total 4.7 g/dL (5.8-8.1); Sodium 131 mmol/L (136-145)
--- NOTE | 2019-11-13 18:36 | CT ---
CT OF THE ABDOMEN AND PELVIS WITH IV CONTRAST INDICATION: Continued abdominal pain after washout and revision ileostomy on October 27, 2019 with a n additional washout on August 02, 2020. COMPARISON: CT the abdomen and pelvis dated October 31, 2019 FINDINGS: ABDOMEN: Lung bases: There are small bilateral pleural effusions with bibasilar atelectasis Liver: There is a large fluid and gas collection with peripheral enhancement overlying the right hepa tic dome and underlying the right hemidiaphragm measuring 11.0 cm suspicious for a subdiaphragmatic intra-abdominal abscess. This may communicate with a larger anterior intra-abdominal cavity abscess o verlying the midline measuring approximately 16.5 x 4.1 cm. Gallbladder: Normal appearing. Pancreas: Normal. Adrenal glands: Normal. Spleen: Normal. Kidneys and ureters: The enhancing right renal mass is stable. 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 No addition al enlarged lymph nodes are evident. Free fluid in abdomen:There is a large peripherally enhancing fluid collection seen within the left h emiabdomen extending into the left paracolonic gutter measuring approximately 12.3 x 3.9 cm. There is a smaller abscess seen within the right paracolonic gutter measuring 6.8 x 6.5 cm. Small locules o f fluid and gas communicates from the larger anterior intra-abdominal abscess to the right upper quadrant of the abdomen near the end ileostomy site. The extent of free air within the abdomen has di minished from the most recent comparison. There is no ton evidence of enteric contrast within the scattered intra-abdominal collections to suggest persistent bowel leak. There is a tiny 3.5 cm periph erally enhancing fluid collection within the right lower quadrant abdomen on image 85 of series 2. This likely communicates with a larger anterior abdominal cavity abscess. PELVIS: Small and large bowel: There is postprocedural change of a partial colectomy and anastomosis at the c olorectal junction. The colon is largely decompressed. There is an end ileostomy seen involving the right mid abdomen. The ileal stump is seen within the right lower quadrant of the abdomen on image 66 of series 2. Appendix:Not seen Bladder: Voss catheter Rectal and perirectal soft tissues:There is postprocedural change of a primary colorectal anastomosis . Reproductive structures: Prostate is enlarged measuring 4.9 cm Free fluid in pelvis: There is moderate free fluid in the pelvis Lymphadenopathy pelvis: No lymphadenopathy is evident. Osseous structures: No acute osseous abnormality. No destructive osteolytic or osteoblastic lesion i s identified. There is scattered degenerative and osteoarthritic changes. Soft tissues:Diffuse anasarca IMPRESSION: 1. Multiple scattered intra-abdominal abscesses. The larger midline abdominal abscess is amenable to percutaneous drainage. The large left paracolonic abscess is amenable to percutaneous drainage. The right paracolonic abscess, inferior to the right hepatic lobe, would be amenable to percutaneous aspi ration. The abscess overlying the right hepatic dome would not be amenable to percutaneous drainage. This abscess may communicate with the larger anterior abdominal cavity abscess. Smaller abs cess within the right lower quadrant abdomen likely communicates with the larger collection of the anterior abdominal cavity. 2. Right lower quadrant end ileostomy. Partial colectomy with primary colorectal anastomosis. 3. Small bilateral pleural effusions with diffuse anasarca 4. Stable right renal mass suspicious for malignancy. 5. Findings discussed with Dr. Gutierrez at 6:15 PM on November 13, 2019.
[2019-11-13] MEDS: Octreotide Acetate 100 MCG in Sodium Chloride 0.9% 50 ML IVPB SCH (20:33)
[2019-11-13] MEDS: Tamsulosin HCl 0.4 MG CAP PO SCH (20:34)
[2019-11-13] MEDS: Enoxaparin Sodium 40 MG/0.4 ML SYRINGE SC SCH (20:34)
[2019-11-13] MEDS ORDERED: Octreotide Acetate 1,000 mcg/ml Multi-Dose Vial IV SCH (21:00)
[2019-11-13] MEDS: Meropenem 2 GM in Sodium Chloride 0.9% 100 ML IVPB SCH (21:21)
[2019-11-14] MEDS: Octreotide Acetate 100 MCG in Sodium Chloride 0.9% 50 ML IVPB SCH ×3 (04:18→20:55)
[2019-11-14 04:56] LABS: Phosphorus 2.1 mg/dL (2.3-4.7)
[2019-11-14 04:59] LABS: ALT (SGPT) 81 U/L (8-55); AST (SGOT) 54 U/L (5-34); Albumin 1.8 g/dL (3.4-4.8); Alkaline Phosphatase 133 U/L (40-110); Anion Gap 7 mmol/L (10-20); BUN (Urea Nitrogen) 21 mg/dL (8.4-25.7); Bilirubin, Total 12.5 mg/dL (0.2-1.2); Calc. Creatinine Clearance 103 mL/min (70-130); Calcium 8.8 mg/dL (7.8-10.44); Carbon Dioxide 22 mmol/L (23-31); Chloride 105 mmol/L (98-107); Estimated GFR-MDRD Greater than 90; Globulin 2.6 g/dL (2.4-3.5); Glucose 121 mg/dL (83-110); Magnesium 1.8 mg/dL (1.6-2.6); Potassium 3.8 mmol/L (3.5-5.1); Protein, Total 4.4 g/dL (5.8-8.1); Sodium 130 mmol/L (136-145)
[2019-11-14 05:17] LABS: Band 9 % (5-11); Hemoglobin 7.5 g/dL (14.0-18.0); Lymphocytes 41 % (21-51); MDiff Complete? YES; Mean Corpuscular HGB CONC 32.8 g/dL (32.0-36.0); Mean Corpuscular Hemoglobin 30.8 pg (27.0-31.0); Mean Corpuscular Volume 93.6 fL (78.0-98.0); Mean Platelet Volume 8.2 fL (7.4-10.4); Metamyelocyte 2 % (0-0); Monocytes 3 % (0-10); Neutrophil 45 % (42-75); Platelet Count 146 thou/uL (130-400); Platelet Morphology Comment Appears Adequate; RBC Distribution Width 15.5 % (11.5-14.5); RBC Morphology Normal; Red Blood Cell (RBC) Count 2.44 mill/uL (4.70-6.10); White Blood Cell (WBC) Count 4.8 thou/uL (4.8-10.8)
[2019-11-14] MEDS: Dextrose 5 % And 0.9 % NaCl 1,000 ML IV SCH ×2 (05:23→14:38)
[2019-11-14] MEDS: Meropenem 2 GM in Sodium Chloride 0.9% 100 ML IVPB SCH ×2 (05:23→14:19)
[2019-11-14] MEDS: Glimepiride 4 MG TAB PO SCH (07:34)
[2019-11-14] MEDS ORDERED: Fentanyl 100 MCG/2 ML VIAL ONE (09:00)
[2019-11-14] MEDS ORDERED: Sodium Bicarbonate 2.5 MEQ/5 ML VIAL ONE (09:01)
[2019-11-14] MEDS ORDERED: Midazolam HCl 2 mg/2 ml Vial ONE (09:01)
[2019-11-14] MEDS: traMADol HCl 50 MG TAB PO PRN ×2 (09:35→14:09)
--- NOTE | 2019-11-14 13:14 | CT ---
CT-guided intraperitoneal fluid collection drainage: DATE: 11/14/2019 HISTORY: 74-year-old male with multiple intra-abdominal fluid collections. TECHNIQUE: Signed informed consent obtained. Patient placed supine on CT table. The collection in the left later al aspect of the peritoneal cavity was targeted. Overlying skin of left anterior abdomen prepped and draped in usual sterile fashion. Procedure performed using step CT guidance. 25-gauge needle used to apply buffered lidocaine superficially and deeply. 5 Tongan Yueh catheter with stylette advanced in tandem with a 25-gauge needle into the left lateral intra-abdominal fluid collection. 25- gauge needle and stylette removed. The Yueh catheter was exchanged over a 0.035 inch short stiff Amplatz guidewire for a 8 Tongan dilator. The dilator was exchanged over the guidewire for a 8 Tongan UreSil general purpose drainage catheter. Inner stiffener and guidewire were removed. Catheter connected to a three-way stopcock and external drainage bag. 20 mL syringe used to aspirate contents of collection, and sent to laboratory for culture and sensitivity. Total of 35 mL of fluid drained. Patient tolerated procedure well. No complications. FINDINGS: Initial scan prior to the procedure demonstrates that the largest fluid collection, which was at midl ine in the ventral aspect of the peritoneal cavity has dramatically decreased. Only a small residual portion of the is left in the lower abdomen/pelvic inlet. The rest of the collection has bec ome very small. Post procedure scan demonstrates external drainage catheter in the left lateral intra-abdominal fluid collection, which has become slightly smaller after drainage. The small right f ar lateral fluid collection and the subdiaphragmatic fluid collection on the right, are unchanged. IMPRESSION: 1. Successful drainage of the left far lateral intra-abdominal fluid collection. 35 mL fluid drained. 8 Tongan general purpose pigtail drainage catheter left to external drainage. 20 mL of the fluid sent to laboratory for culture and sensitivity. 2. The large ventral intra-abdominal fluid collection has markedly decreased in size after external d rainage by manual expression via the ventral surgical wound by Dr. Gutierrez yesterday. 3. Right subdiaphragmatic moderate fluid collection, and the small right lateral intra-abdominal flui d collection, are unchanged since yesterday.
[2019-11-14] MEDS: FAT EMULSION IV SCH (14:43)
[2019-11-14] MEDS: [UNRECOGNIZED DRUG - OTHER] IV SCH (14:43)
[2019-11-14] MEDS: SODIUM ACETATE IV SCH (14:43)
[2019-11-14] MEDS: SODIUM CHLORIDE IV SCH (14:43)
--- NOTE | 2019-11-14 15:57 | CON ---
DATE OF CONSULTATION: 11/14/2019 REASON FOR CONSULTATION: Complications following low abdominoperitoneal resection for management of rectal cancer. HISTORY OF PRESENT ILLNESS: A 74-year-old who has a history of type 2 diabetes and apparently had been seen by his primary physician multiple times and recommended colon cancer screening, but never agreed to it and developed a change in bowel habits and weight loss over 3 months before the index diagnosis. He underwent a colonoscopy then and demonstrated a mass in the rectal area about 7 cm from the anal verge with high-grade obstruction and biopsies demonstrated adenocarcinoma. The patient underwent neoadjuvant chemo and radiation therapy and MediPort placement, and then had UroLift procedure done by Dr. Conrad and had a low-anterior abdominal resection by Dr. Gutierrez with protective ileostomy on October 27 and then had some complications with fecal peritonitis on November 01, which was identified to an enteric leak. This was repaired. He required admission to the ICU during this period. The pathology of the surgical specimen demonstrated no residual carcinoma identified, no viable cancer cells identified with a complete response and negative margins of resection, and all the mesenteric lymph nodes were negative for metastatic carcinoma in the rectal donut with no malignancy identified either. He then developed abdominal pain, jaundice and followup imaging studies demonstrated areas of fluid accumulation in the abdominal region in the upper segments including the rights subdiaphragmatic area, the left subdiaphragmatic area in the midline. The patient underwent percutaneous drainage with Radiology assistance. Procedure was carried out on November 13. The collection in the left lateral aspect of the peritoneal cavity was targeted about 35 mL of fluid drained and a pigtail catheter left in place. The right subdiaphragmatic collection was not approached. The large ventral fluid collection had been draining through the midline and that was not approached either. Currently, Mr. Pérez is awake. He has quite severe hearing impairment. He denied any abdominal pain, which apparently was present before. No headaches. No respiratory symptoms. He has a Voss catheter in place. No joint symptoms. No back pain. PAST MEDICAL HISTORY: Type 2 diabetes, degenerative joint disease, recently diagnosed rectal cancer status post low abdominal resection and adjuvant chemoradiation therapy with successful resection, but then postop complications noted above. ALLERGIES: NONE. SOCIAL HISTORY: Never smoker. 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 Lives in [place]. PAST SURGICAL HISTORY: As above. FAMILY HISTORY: Noncontributory. CURRENT MEDICATIONS: 1. TPN. 2. Apresoline p.r.n. 3. Insulin. 4. Meropenem. 5. Octreotide. 6. Ondansetron. 7. Tramadol. PHYSICAL EXAMINATION: VITAL SIGNS: T-max 98.3 to 98.4, blood pressure 150/78, pulse 60, respirations 18, and O2 saturation 100%. GENERAL: The patient has quite obvious jaundice and has Mediport accessed in the left subclavian location, Voss catheter. The midline incision with an elliptical area covered by negative pressure dressing. There is no erythema surrounding this. There is a percutaneous pigtail catheter in the left upper abdominal segment and ileostomy in the right lower quadrant. HEENT: Scleral icterus noted. Pupils are constricted. His conjunctivae normal. Oral cavity, fairly unremarkable. NECK: Supple. No jugular vein distention. LUNGS: Symmetric clear breath sounds. HEART: S1 and S2 regular rate. ABDOMEN: Somewhat flat, not distended. No tenderness noted. Bowel sounds present. The fluid draining into the bag from the drainage catheter is kind of tea-colored as expected and not very thick. No joint inflammatory activity. EXTREMITIES: Pulses are 1+ in dorsalis pedis. He is able to move all extremities equally. NEUROLOGIC: He has quite severe hearing impairment, but appears to be oriented. No word-finding problems. No delusional process noted. LABORATORY DATA: White cell count is 5.7, now 4.8, hemoglobin 7.5, MCV 93, platelets 146 with a normal differential. Bands were 19, down to 9 at this moment. Sodium 130, creatinine 0.82. AST 54, ALT 81, and bilirubin 12.5. His bilirubin has been elevated since August 2019. Hepatitis B and C and A serology nonreactive and the liver shows the large fluid and gas collection, peripheral enhancement overlying the right hepatic dome right under the right diaphragm. The gallbladder was normal. The patient had abdominal ultrasound done on November 05 and it showed thickening of gallbladder wall, anechoic area in the region of the lateral margin of the left hepatic lobe, hepatomegaly noted, but no biliary duct dilatation noted. The direct bilirubin was last measured a few days ago was 10. Microbiology data, we have abdominal fluid culture with a gram-negative peace yet to be identified and susceptibility tested. The second sample is yet to be resulted. No organism seen on Gram stain. Last chest x-ray is from November 01 and showed the endotracheal tube of central venous catheter, pulmonary vascular congestion. ASSESSMENT: Type 2 diabetes, recently diagnosed rectal cancer, status post anterior abdominal resection with ileostomy for diversion and then the postop complications noted above with intraabdominal intraperitoneal abscesses, one of them is draining through the midline and the other has been approached percutaneously in the right-sided, I do not think it is approachable via percutaneous route. It seems to communicate with the midline one, so it should drain that way hopefully. He does not appear to be septic at the moment. The microbiology yet to be fully identified from the sample submitted. We will continue meropenem decreased dosage to 1 g q.8 and monitor response to treatment. End points will be resolution of the fluid collections or at least marked decrease. We will evaluate his C-reactive protein, which can be used as an endpoint as well if elevated. White cell count is normal, so that it is not going to serve as an endpoint except in regard to maintenance of normal values. The patient has direct hyperbilirubinemia, most likely due to intrahepatic cholestasis associated with sepsis as well as the multiple abscesses. The patient will be at risk for complications related to the TPN including fungal colonization of the catheter candidemia and so on, repeat chest x-ray. Urinary tract complications related to Voss catheterization would be also another element of concern and as soon as this can be removed, we would encourage that. Job ID: [id number]
[2019-11-14] MEDS ORDERED: Activase 2 MG VIAL CATH SCH (17:00)
[2019-11-14] MEDS ORDERED: Sterile Water 10 ML VIAL IVP SCH (17:00)
[2019-11-14] MEDS: Dextrose 50% Abboject 50 ML SYRINGE IVP PRN (17:06)
--- NOTE | 2019-11-14 18:22 | PRG ---
DATE OF SERVICE: 11/14/2019 SUBJECTIVE: Mr. Pérez is doing better today. He remains afebrile, 97.4 degrees, 60, 18, 150/78. His ileostomy is working well. He has been placed back on clear liquids and is tolerating that. His white count this morning is 4.8, hemoglobin is 7.5. His differential is unremarkable on his white count. His BUN is 21, creatinine 0.82, and sodium 130. The patient's bilirubin has fallen from 16 to 12.5. AST, ALT, alk phos are all improved. As noted, yesterday the patient's CAT scan noted a right subdiaphragmatic fluid collection, right upper quadrant fluid collection, left pericolic gutter fluid collection. After that scan was performed, the patient's midline tanesha removed and drainage from his midline cloudy fluid was evacuated nearly 300 mL. Fluid submitted from aspirate revealed a few gram-negative rods on Gram stain. Today, the patient had a repeat CAT scan in preparation for drainage of the collections and I suspected the collection in the right upper quadrant of abdomen had almost resolved. Percutaneous drainage was performed of the collection in the left pericolic gutter revealing some cloudy thin fluid that radiologist stated did not look like pus. Gram stain revealed many white cells, but no apparent organisms. Cultures of course are pending. OBJECTIVE: LUNGS: Clear to auscultation. ABDOMEN: Mild tenderness. No rebound or guarding. EXTREMITIES: Unremarkable. Jaundice as noted previously. LABORATORY DATA: Laboratories as noted. ASSESSMENT/PLAN: 1. Jaundice, improving. Liver function tests are improving. Cholestasis related to Diflucan previously and medications now improved. He has been started back on meropenem after 2 to [address] Polanco seen him and meropenem dose adjusted and he will be followed, awaiting cultures and response observation. 2. Deconditioning. Continue physical therapy efforts. Expect will need rehab as a bridge to go home. 3. Subdiaphragmatic fluid collection. We will observe, treat this with antibiotics. Discuss with Radiology later if this does not improve, it may need attempted percutaneous drainage, although access is difficult. 4. Diverting ileostomy. 5. Acute kidney injury, resolved and renal function remains normal. 6. Hypoglycemic episodes and malfunction of his MediPort. Activase was placed and then I flushed this and I get good blood return and good flush, his TPN was started back again. Observe Kaylie. Job ID: [id number]
[2019-11-14] MEDS: Enoxaparin Sodium 40 MG/0.4 ML SYRINGE SC SCH (20:56)
[2019-11-14] MEDS: Tamsulosin HCl 0.4 MG CAP PO SCH (20:56)
[2019-11-14] MEDS: MEROPENEM 1 GM/50 ML 1 GM in Premix Bag 1 BAG IVPB SCH (23:07)
[2019-11-14] MEDS: Insulin Regular 300 UNITS/3 ML VIAL SC PRN (23:07)
[2019-11-15] MEDS: Acetaminophen 500 MG TAB PO PRN ×2 (03:28→10:49)
[2019-11-15] MEDS: traMADol HCl 50 MG TAB PO PRN ×3 (03:29→15:10)
[2019-11-15] MEDS: Octreotide Acetate 100 MCG in Sodium Chloride 0.9% 50 ML IVPB SCH ×3 (03:35→20:00)
[2019-11-15] MEDS: MEROPENEM 1 GM/50 ML 1 GM in Premix Bag 1 BAG IVPB SCH ×3 (06:38→22:14)
[2019-11-15] MEDS: Glimepiride 4 MG TAB PO SCH (06:39)
[2019-11-15] MEDS ORDERED: traMADol HCl 50 MG TAB PO PRN (06:42)
[2019-11-15] MEDS: Insulin Regular 300 UNITS/3 ML VIAL SC PRN ×4 (07:09→22:14)
[2019-11-15] MEDS: Dextrose 5 % And 0.9 % NaCl 1,000 ML IV SCH ×2 (07:45→14:36)
--- NOTE | 2019-11-15 07:51 | PRG ---
DATE OF SERVICE: 11/13/2019 SUBJECTIVE: Mr. Montoya returned from his CAT scan. He tolerated oral prep well. His repeat BUN and creatinine before the procedure revealed they were completely normal. The patient's CAT scan revealed a large fluid collection in the left paracolic gutter, right upper quadrant just above the ileostomy towards the midline, and another one is subdiaphragmatic right. I have talked to Radiology about a CT-guided drainage of these fluid collections in the morning, Friday. They will arrange that. At the patient's bedside, his wound VAC was not functioning well and was removed. Milton removed from the midline. There was a focus in the midline of drainage, cloudy clear drainage, slightly purulent in nature. It was not foul smelling. While compressing his abdomen over the sites of the recognized fluid collections on CAT scan, left lateral mid abdomen, right upper quadrant above the ileostomy towards midline and right upper quadrant, I was able to evacuate 300 mL of intraabdominal fluid. Some of this was sent for culture. We evacuated this still could not get any more drainage. The area of drainage is a small focus that I could not even get a Yankauer tip into. The drainage was cloudy and particulate at all. It was not foul smelling as noted. The wound above and below this looked fairly healthy, although I did open it. I communicated these findings to the radiologist as his repeat CT-guided drainage procedure tomorrow may reveal decompression of the fluid collections. Again, CAT scan did not show any enteric consume contrast in the fluid collections. At this point, we will initiate TPN, n.p.o. status, and statin. Initiate meropenem. If they cannot establish peripheral IV, he may need a central line or a PICC line tomorrow. We will await CT scan results tomorrow and probably ask wound care to place a wound VAC on his wound after the CAT scan procedure. My goal is to treat this non-operatively if at all possible. I have written TPN orders and will check magnesium phosphorus tomorrow. Job ID: [id number]
[2019-11-15 08:50] LABS: ALT (SGPT) 67 U/L (8-55); AST (SGOT) 53 U/L (5-34); Albumin 1.8 g/dL (3.4-4.8); Alkaline Phosphatase 131 U/L (40-110); Anion Gap 8 mmol/L (10-20); BUN (Urea Nitrogen) 23 mg/dL (8.4-25.7); Bilirubin, Total 11.1 mg/dL (0.2-1.2); Calc. Creatinine Clearance 109 mL/min (70-130); Calcium 8.5 mg/dL (7.8-10.44); Carbon Dioxide 24 mmol/L (23-31); Chloride 103 mmol/L (98-107); Estimated GFR-MDRD Greater than 90; Globulin 2.6 g/dL (2.4-3.5); Glucose 151 mg/dL (83-110); Potassium 3.8 mmol/L (3.5-5.1); Protein, Total 4.4 g/dL (5.8-8.1); Sodium 131 mmol/L (136-145)
[2019-11-15 10:39] LABS: #Basophils 0.1 thou/uL (0.0-0.2); #Eosinphils 0.1 thou/uL (0.0-0.7); #Lymphocytes 1.8 thou/uL (1.20-3.40); #Monocytes 0.1 thou/uL (0.11-0.59); #Neutrophils 3.4 thou/uL (1.40-6.50); %Eosinophils 1.3 % (0.0-10.0); %Lymphocytes 32.3 % (21.0-51.0); %Monocytes 2.1 % (0.0-10.0); %Neutrophils 62.3 % (42.0-75.0); Hemoglobin 8.3 g/dL (14.0-18.0); Mean Corpuscular Hemoglobin 29.6 pg (27.0-31.0); Mean Corpuscular Volume 92.7 fL (78.0-98.0); Mean Platelet Volume 8.3 fL (7.4-10.4); Platelet Count 162 thou/uL (130-400); RBC Distribution Width 15.3 % (11.5-14.5); Red Blood Cell (RBC) Count 2.82 mill/uL (4.70-6.10); White Blood Cell (WBC) Count 5.5 thou/uL (4.8-10.8)
[2019-11-15] MEDS: SODIUM ACETATE IV SCH (14:36)
[2019-11-15] MEDS: FAT EMULSION IV SCH (14:36)
[2019-11-15] MEDS: [UNRECOGNIZED DRUG - OTHER] IV SCH (14:36)
[2019-11-15] MEDS: SODIUM CHLORIDE IV SCH (14:36)
--- NOTE | 2019-11-15 17:26 | PRG ---
DATE OF SERVICE: 11/15/2019 SERVICE: Pulmonary Medicine. INTERVAL HISTORY: The patient is doing really well from respiratory standpoint. Breathing comfortably. No complaints of chest discomfort, nausea, or vomiting. He is having some confusion on and off. That being said, the patient's family is reassured by the progress he is making through time. He had a little setback over the weekend. Multiple abscesses were identified in his abdomen. One was a minimal to percutaneous drainage. One opened up after manipulation of the midline incision. The final one is above the right diaphragm. We are hopeful this tracks anteriorly. If it does, we may be able to fix it with nothing more than the wound VAC. That being said, it did appear to be too terribly minimal to percutaneous drainage. Either way, he is resumed on antibiotics over the weekend. Gram-negative peace is growing in the broth. PHYSICAL EXAMINATION: VITAL SIGNS: Afebrile, pulse 60, blood pressure 134/64, respirations 14, saturation 100%, currently on room air. GENERAL: The patient is awake and alert, in no apparent distress. LUNGS: Very good air entry bilaterally with no prolonged expiratory phase or wheezing present. HEART: Normal rate, regular. ABDOMEN: Soft, nontender, nondistended. Bowel sounds are positive. MUSCULOSKELETAL: No cyanosis or clubbing. There is trace pitting in the sacrum. No pitting in the bilateral lower extremities. NEUROLOGIC: Grossly nonfocal. LABORATORY DATA: WBC 5.5, hemoglobin 8.3, and platelets 162,000. INR 1.2. Basic metabolic profile is essentially unremarkable/stable. Total bilirubin is downtrending to 11.5. AST, ALT, and alkaline phosphatase are all stable to downtrending. Previously, Gram-negative rods were identified in the abdominal fluid, but now it is suggesting no organisms were identified. ASSESSMENT: 1. Acute hypoxic respiratory failure, resolved. 2. Gross peritonitis secondary to enteric leak, status post laparotomy and subsequent washout with end ileostomy and closure, multiple fluid collections are present. 3. Elevated bilirubin, improving. DISCUSSION AND PLAN: The patient is doing great from respiratory standpoint. At this point, he has no further requirements for inpatient Pulmonary/Critical Care opinion, and I will sign off. Given that he is back on TPN, watch his volume status closely and intermittently dose Lasix through time. Should he develop any increase in respiratory problems or hemodynamic instability, please give my service a phone call. Job ID: [id number]
--- NOTE | 2019-11-15 18:07 | PRG ---
DATE OF SERVICE: 11/15/2019 SUBJECTIVE: Jan Pérez is doing well today. He is afebrile, 98.1 degrees, heart rate 60, and blood pressure 149/75. The drainage from his CT-guided percutaneous drain left paracolic drained. There is no organisms so far on culture. The drainage is more clear and has decreased in volume. It is less than 40 in 24 hours. His ileostomy is working. He is eating better. His TPN is infusing, a new bag has been hung. He is on meropenem. Wound VAC has malfunctioned, had to be changed. OBJECTIVE: LUNGS: Clear to auscultation. CARDIAC: Regular rate and rhythm without murmur or gallop. ABDOMEN: Softer, less tender. LABORATORY DATA: White count 5 and hemoglobin 8.3. His bilirubin is 11.1 and sodium 131. ASSESSMENT AND PLAN: Resolving hepatitis and bilirubin changes. Continue observation. The patient is on TPN, but eating better. We will discontinue TPN after this bag. No evidence of enteric drainage. Continue wound care. Consider rehab transfer soon. Job ID: [id number]
[2019-11-15] MEDS: Tamsulosin HCl 0.4 MG CAP PO SCH (19:59)
[2019-11-15] MEDS: Enoxaparin Sodium 40 MG/0.4 ML SYRINGE SC SCH (20:00)
[2019-11-16] MEDS: traMADol HCl 50 MG TAB PO PRN ×2 (00:06→13:40)
[2019-11-16] MEDS: Octreotide Acetate 100 MCG in Sodium Chloride 0.9% 50 ML IVPB SCH ×3 (03:31→20:05)
[2019-11-16] MEDS: Dextrose 5 % And 0.9 % NaCl 1,000 ML IV SCH ×2 (03:38→12:59)
[2019-11-16] MEDS: MEROPENEM 1 GM/50 ML 1 GM in Premix Bag 1 BAG IVPB SCH ×3 (06:35→23:46)
[2019-11-16] MEDS: Insulin Regular 300 UNITS/3 ML VIAL SC PRN ×2 (06:35→13:00)
[2019-11-16] MEDS: Glimepiride 4 MG TAB PO SCH (06:35)
--- NOTE | 2019-11-16 16:28 | PRG ---
DATE OF SERVICE: 11/16/2019 SUBJECTIVE: Mr. Pérez is doing well today. He feels much better. OBJECTIVE: VITAL SIGNS: He is afebrile at 98.2 degrees, heart rate 90, respiratory rate 18, blood pressure 119/77. Labs none today. LUNGS: Clear to auscultation. CARDIAC: Regular rate and rhythm. ABDOMEN: Soft. Mild tenderness. EXTREMITIES: Unremarkable. LABORATORY AND DIAGNOSTIC DATA: Cultures from midline wound reveal a few mixed skin and enteric shiloh, but no organisms seen. Fluid from left abdomen cultures from 11/14/2019, no growth at [address]-guided drain placement, 85 mL in the last 24 hours. ASSESSMENT AND PLAN: 1. Jaundice secondary to medical hepatitis, probably from Diflucan and Zosyn, which had been discontinued. He is now on meropenem. He has been seen by Dr. Polanco. His bilirubin is on the decline. We will check it again tomorrow. 2. Intraabdominal fluid collections. Check CAT scan without contrast tomorrow. 3. Deconditioning. Consider rehab. He is still not able to ambulate independently. Perhaps can go to rehab later in the week. 4. Open skin and subcutaneous tissue of the abdomen. Check wound tomorrow with wound VAC change. Job ID: [id number]
--- NOTE | 2019-11-16 18:04 | PRG ---
DATE OF SERVICE: 11/16/2019 SUBJECTIVE: Sitting up in bed. He still appears chronically ill, but no acute distress, marked hearing impairment. The TPN has been discontinued and Voss catheter will be discontinued tomorrow hopefully. Still has a drain in the left upper quadrant. OBJECTIVE: VITAL SIGNS: Temperature is normal. BP 119/77, pulse 90, respirations 18, O2 saturation 97%. GENERAL: Appears chronically ill, but in no acute distress, jaundice. LUNGS: Faint basilar crackles. HEART: S1-S2 regular rate. ABDOMEN: With a drain in the left upper quadrant in the midline, negative pressure dressing. Voss catheter. EXTREMITIES: Able to move all 4 extremities but is diffusely weak. NEURO: He is awake, follows commands with some difficulty because of hearing impairment. LABORATORY DATA: White cell count is 5.5, hemoglobin 8.3, platelets 162 with normal differential. Creatinine 0.78, sodium 131, bilirubin 11, it is a little lower than previously. AST 53, ALT 67, alkaline phosphatase 131. The cultures have not yielded any bacterial growth yet. We just have the gram stain. ASSESSMENT AND DISCUSSION: Type 2 diabetes, rectal cancer, status of resection, ileostomy and then postop intraperitoneal abscess associated with complications, status post drainage. The patient to continue on meropenem. The risk of candidemia is less, now the TPN was stopped, but still present. If there is recrudescence of fever, we will have to add antifungal therapy. We will place orders to Case Management. The endpoint will be improvement of the abscesses by followup imaging studies, decrease in C-reactive protein, improvement in liver function tests. Job ID: [id number]
[2019-11-16] MEDS: Enoxaparin Sodium 40 MG/0.4 ML SYRINGE SC SCH (20:05)
[2019-11-16] MEDS: Tamsulosin HCl 0.4 MG CAP PO SCH (20:05)
[2019-11-17] MEDS: Dextrose 5 % And 0.9 % NaCl 1,000 ML IV SCH ×2 (00:09→11:40)
[2019-11-17] MEDS: traMADol HCl 50 MG TAB PO PRN (00:49)
[2019-11-17] MEDS: Octreotide Acetate 100 MCG in Sodium Chloride 0.9% 50 ML IVPB SCH (03:24)
[2019-11-17 05:35] LABS: #Basophils 0.1 thou/uL (0.0-0.2); #Eosinphils 0.1 thou/uL (0.0-0.7); #Lymphocytes 2.5 thou/uL (1.20-3.40); #Monocytes 0.2 thou/uL (0.11-0.59); #Neutrophils 6.6 thou/uL (1.40-6.50); %Basophils 1.1 % (0.0-1.0); %Eosinophils 0.8 % (0.0-10.0); %Lymphocytes 26.2 % (21.0-51.0); %Monocytes 2.1 % (0.0-10.0); %Neutrophils 69.7 % (42.0-75.0); Hemoglobin 9.4 g/dL (14.0-18.0); Mean Corpuscular HGB CONC 32.4 g/dL (32.0-36.0); Mean Corpuscular Hemoglobin 29.7 pg (27.0-31.0); Mean Corpuscular Volume 91.8 fL (78.0-98.0); Mean Platelet Volume 8.8 fL (7.4-10.4); Platelet Count 194 thou/uL (130-400); RBC Distribution Width 15.8 % (11.5-14.5); Red Blood Cell (RBC) Count 3.15 mill/uL (4.70-6.10); White Blood Cell (WBC) Count 9.5 thou/uL (4.8-10.8)
[2019-11-17 05:56] LABS: ALT (SGPT) 67 U/L (8-55); AST (SGOT) 75 U/L (5-34); Albumin 1.8 g/dL (3.4-4.8); Alkaline Phosphatase 153 U/L (40-110); Anion Gap 8 mmol/L (10-20); BUN (Urea Nitrogen) 28 mg/dL (8.4-25.7); Bilirubin, Total 8.3 mg/dL (0.2-1.2); Calc. Creatinine Clearance 111 mL/min (70-130); Calcium 9.3 mg/dL (7.8-10.44); Carbon Dioxide 24 mmol/L (23-31); Chloride 104 mmol/L (98-107); Estimated GFR-MDRD Greater than 90; Potassium 4.4 mmol/L (3.5-5.1); Protein, Total 4.8 g/dL (5.8-8.1); Sodium 132 mmol/L (136-145)
[2019-11-17 05:59] LABS: Glucose 48 mg/dL (83-110)
[2019-11-17] MEDS: MEROPENEM 1 GM/50 ML 1 GM in Premix Bag 1 BAG IVPB SCH (06:17)
[2019-11-17] MEDS: Dextrose 50% Abboject 50 ML SYRINGE IVP PRN (06:17)
[2019-11-17] MEDS: Glimepiride 4 MG TAB PO SCH (06:22)
--- NOTE | 2019-11-17 09:45 | CT ---
Abdomen and pelvic CT scan without IV contrast: COMPARISON: 11/13/2019 HISTORY: Follow-up fluid collections FINDINGS: Increasing bilateral pleural effusions and bibasilar pulmonary parenchymal changes evidence for atele ctasis. There is a persistent fluid collection in the right upper quadrant between the diaphragm and liver with some minimal gas measuring approximately 7 x 10 cm. The previously noted left lateral fluid collection with percutaneous drain is decreased in size now measuring of 1.6 x 5.5 x 9.3 cm. Also the patient noted loculated air and fluid collection anteriorly in the upper abdomen is markedly decreased in size with primarily some gas and very minimal fluid residual. Stable adenopathy in the right pericardial fat and also in the central mesentery. There appears to be some diffuse thicken ing of the left colon wall, nonspecific but possibly nonspecific colitis is certainly consideration. There is some trace to minimal free fluid in the pelvis and the lower right colonic gu tter region. There is some increased contrast density within the gallbladder evidence for vicarious excretion. IMPRESSION: Persistent mostly fluid with minimal punctate gas in the right upper quadrant between the liver and t he diaphragm. Considerable decrease in the previously noted anterior fluid and air collection with mostly residual air and a small amount of fluid as well as decrease in the left lateral fluid collect ion with percutaneous drain in place. Heterogeneous thickening of the colon wall particularly the left colon, this may be just related to underdistention although there is concern for the possibility of nonspecific colitis.
[2019-11-17 11:55] VITALS: BP 152/87; TEMP 97.9
[2019-11-17] MEDS ORDERED: Ketorolac Tromethamine 30 MG/ML VIAL IVP SCH (12:00)
[2019-11-17] MEDS ORDERED: traMADol HCl 50 MG TAB PO PRN (12:27)
--- NOTE | 2019-11-17 13:02 | PRG ---
DATE OF SERVICE: 11/17/2019 SUBJECTIVE: Mr. Pérez is doing well today. He had a CAT scan demonstrating resolution of his right upper quadrant central abdominal fluid collection. The fluid collection with a CT-guided drain in the left abdomen is essentially resolved. The patient has a collection in right subdiaphragmatic that is difficult to access, but could be accessed as absolutely possible. Cultures from the central abdomen that we obtain from drainage from the central fascia reveals no organisms with final cultures, few mixed skin and enteric shiloh present on delayed culture. Culture from the CT-guided drain fluid shows no growth. The drainage is less than 35 per 24 hours. This morning, the patient's white count is 9, hemoglobin 9.4. Sodium 132, and glucose did drop down to 48. He was given an amp of D50. He is on glimepiride in the morning. Glucoses during the day were 258 and 233, direct bilirubin is down to 8.3, down from 16. His transaminases are improved. OBJECTIVE: LUNGS: Clear to auscultation. CARDIAC: Regular rate and rhythm without murmur or gallop. ABDOMEN: Soft, mild tenderness, but no peritoneal signs in the central abdomen, where the wound is open. We have evaluated this wound. The central fascia is slightly macerated, but there is no hernia. Wound VAC is reapplied. The patient is still jaundiced, it is expected with a bilirubin of 8. ASSESSMENT AND PLAN: 1. Open wound abdomen. Continue wound VAC care. Wound Care will communicate with rehab. Wound VAC usage used to avoid reproduction and problems. He is on Instill with low pressure and changed every 2 to 3 days. 2. Deconditioning. Rehab physical therapy. 3. Rectal cancer without evidence of disease on resection after neoadjuvant therapy as a protective ileostomy, it is working well. There were no signs of an enteric leak. He tolerates his diet. 4. Fluid collection, right subdiaphragmatic observed. No evidence of abscess. White count is normal. Afebrile. 5. Elevated liver function test, improving. This is medical related, probably related to his Diflucan and Zosyn, which has been discontinued. 6. I have consulted Dr. Polanco and we will continue meropenem IV at this time, probably we will repeat his CAT scan later next week. Plan to remove his left abdominal CT guided drain next week after repeat noncontrast CAT scan of abdomen and pelvis. Job ID: [id number]
[2019-11-17] MEDS ORDERED: Ketorolac Tromethamine 30 MG/ML VIAL IVP PRN (18:00)
== END 2019-11-17 17:25 | DRG 329 ==
LOC: SURG A 10-27 05:32 → CCU 11-01 00:33 → IMCU/EMU 11-07 22:37 → SURG A 11-13 06:56
PROVIDERS: ADMIT Specialist; ATTEND Specialist
PROC: 0DBN4ZZ Excision of Sigmoid Colon, Percutaneous Endoscopic Approach (ICD-10-PCS; principal; 2019-10-27)
PROC: 0D1B4Z4 Bypass Ileum to Cutaneous, Percutaneous Endoscopic Approach (ICD-10-PCS; 2019-10-27)
PROC: 0DBB0ZZ Excision of Ileum, Open Approach (ICD-10-PCS; 2019-10-31)
PROC: 0WUF0JZ Supplement Abdominal Wall with Synthetic Substitute, Open Approach (ICD-10-PCS; 2019-10-31)
PROC: 5A1945Z Respiratory Ventilation, 24-96 Consecutive Hours (ICD-10-PCS; 2019-10-31)
PROC: 02HV33Z Insertion of Infusion Device into Superior Vena Cava, Percutaneous Approach (ICD-10-PCS; 2019-10-31)
PROC: 0WPFXJZ Removal of Synthetic Substitute from Abdominal Wall, External Approach (ICD-10-PCS; 2019-11-02)
PROC: 0W9G3ZZ Drainage of Peritoneal Cavity, Percutaneous Approach (ICD-10-PCS; 2019-11-14)
DX: C20 Malignant neoplasm of rectum (principal); A41.9 Sepsis, unspecified organism; J96.01 Acute respiratory failure with hypoxia; R65.20 Severe sepsis without septic shock; K65.8 Other peritonitis; K83.1 Obstruction of bile duct; K56.7 Ileus, unspecified; N17.9 Acute kidney failure, unspecified; K94.19 Other complications of enterostomy; E87.1 Hypo-osmolality and hyponatremia; E46 Unspecified protein-calorie malnutrition; D61.818 Other pancytopenia; H91.90 Unspecified hearing loss, unspecified ear; N32.0 Bladder-neck obstruction; E11.649 Type 2 diabetes mellitus with hypoglycemia without coma; E86.0 Dehydration; Y83.8 Other surgical procedures as the cause of abnormal reaction of the patient, or of later complication, without mention of misadventure at the time of the procedure; E80.6 Other disorders of bilirubin metabolism; T36.0X5A Adverse effect of penicillins, initial encounter; T37.8X5A Adverse effect of other specified systemic anti-infectives and antiparasitics, initial encounter; K75.89 Other specified inflammatory liver diseases; Z79.84 Long term (current) use of oral hypoglycemic drugs; Z68.25 Body mass index [BMI] 25.0-25.9, adult; Z79.899 Other long term (current) drug therapy
CPT/HCPCS: 36415; 36416; 49020; 71045; 74018; 74019; 74022; 74176; 74177; 76705; 77002; 80048; 80053; 80061; 80074; 80076; 82040; 82103; 82104; 82140; 82607; 82746; 82805; 82977; 83516; 83735; 84100; 85025; 85060; 85610; 86140; 86850; 86900; 86901; 87070; 87077; 87205; 88304; 88309; 93005; 93010; 94002; 94003; A4217; C1729; C1751; C9113; J0171; J0670; J1100; J1170; J1450; J1650; J1815; J1885; J1940; J2001; J2185; J2248; J2250; J2270; J2354; J2405; J2543; J2704; J2997; J3010; J3475; J3480; J3490; J7050; P9045; P9047; Q9967; S0020

== ENCOUNTER 2020-02-07 | Outpatient (CLI) | payer MEDICARE, BC, OTHER | END 2020-02-07 13:53 | disposition home or self-care (01) | DX: N28.89 Other specified disorders of kidney and ureter (principal) ==

== ENCOUNTER 2020-02-07 10:00 | Inpatient (IN) | payer MEDICARE, BC, OTHER ==
[2020-02-07 10:15] VITALS: BMI 22.3
--- NOTE | 2020-02-09 07:45 | HP ---
HISTORY OF PRESENT ILLNESS: Beto Montoya is a 75-year-old male patient who presented with rectal cancer, undergoing neoadjuvant therapy with Dr. Murguia and has a MediPort and then on 10/27/2019, laparoscopic-assisted rectosigmoid resection with protective ileostomy, postoperatively required 11/02/2019 laparotomy for enteric leak; 10/31/2019 and 11/02/2019 with closure of abdomen. He has recovered. Pathology revealed no residual cancer with ulcerated tumor bed. He had an incomplete colonoscopy prior to the procedure. He needs a completion colonoscopy in the future. The patient had some fluid collections that on followup CAT scan resolved. Plan at this time is to reverse his ileostomy. Dr. Murguia then will give him 4 more cycles of chemotherapy. In the months to come after that, he will need a completion colonoscopy with Dr. Tana Islas. PAST SURGICAL HISTORY: 1. UroLift procedure in September 2019. 2. MediPort placement on 07/27/2019. 3. October 27, 2019, laparoscopic assisted colorectal resection with protective ileostomy. 4. On 10/31/2019, repeat laparotomy with abdominal washout, ABThera placement. 5. Open abdomen and closure of the abdomen on 11/02/2019 due to enterotomy postoperatively. Pathology revealed no residual tumor as noted above. FAMILY HISTORY: Father 50 years of age, work related accident. Mother, cervical cancer. Family history of hypertension, cancer. ALLERGIES: NONE. SOCIAL HISTORY: Tobacco, none. Alcohol, none. PAST MEDICAL HISTORY: Bursitis, wrist arthritis, diabetes mellitus, and hypertension. MEDICATIONS: 1. Atorvastatin 10 mg a day. 2. Flomax 0.4 mg a day. 3. Ibuprofen p.r.n. 4. DayQuil p.r.n. 5. Zofran p.r.n. 6. Glyburide 5 mg a day. 7. Finasteride 5 mg daily. 8. Oxybutynin 5 mg as needed. REVIEW OF SYSTEMS: 10 point noncontributory. PHYSICAL EXAMINATION: VITAL SIGNS: 174 pounds, 6 feet 2 inches, blood pressure 104/60, pulse 75, temperature 96.6 degrees. HEAD, EARS, EYES, NOSE, AND THROAT: Unremarkable. LUNGS: Clear to auscultation. CARDIAC: Regular rate and rhythm. No murmur or gallop. ABDOMEN: Soft. Ileostomy present. Midline wound granulating, almost nearly completely healed for about 4 cm area. PDS suture noted. Ileostomy bag in place. Remainder of abdomen soft. No evident hernia. EXTREMITIES: Unremarkable. ASSESSMENT AND PLAN: 1. Ileostomy status. Plan reversal, possible laparoscopic assisted, general anesthesia, tap block, IV access, blood draws, MediPort, admit postoperatively. 2. Rectal cancer. No residual tumor noted. Plan postop chemotherapy four cycles after complete ileostomy reversal. 3. Incomplete preoperative colonoscopy. He will need a colonoscopy in 6-8 weeks to 3 months post ileostomy reversal with Dr. Islas. 4. Diabetes mellitus. 5. Hypertension. 6. Benign prostatic hypertrophy. Job ID: [id number]
[2020-02-09] MEDS ORDERED: Acetaminophen 500 MG TAB ONE (10:00)
[2020-02-09] MEDS ORDERED: Acetaminophen 500 MG TAB PO SCH (10:15)
[2020-02-09] MEDS ORDERED: Fentanyl 100 MCG/2 ML VIAL ONE ×5 (10:37→13:19)
[2020-02-09] MEDS ORDERED: Midazolam HCl 2 mg/2 ml Vial ONE (10:37)
[2020-02-09] MEDS ORDERED: Rocuronium Bromide 10 MG/ML (10ML VIAL) ONE (11:01)
[2020-02-09] MEDS ORDERED: Glycopyrrolate 0.2 MG/ML 5 ML SYRINGE ONE (11:01)
[2020-02-09] MEDS ORDERED: Bupivacaine HCl 0.5%/Epinephrine 1:200,000/PF 30 ml Vial ONE (11:01)
[2020-02-09] MEDS ORDERED: Ondansetron PF 4 MG/2 ML Vial ONE (11:01)
[2020-02-09] MEDS ORDERED: PROPOFOL 200 MG/20 ML VIAL ONE (11:01)
[2020-02-09] MEDS ORDERED: EPINEPHrine 1 MG/10 ML Abboject SYRINGE ONE (11:01)
[2020-02-09] MEDS ORDERED: PHENYLEPHRINE-NS 100 MCG/ML 10 ML SYRINGE ONE (11:01)
[2020-02-09] MEDS ORDERED: Lidocaine 1% PF 5 ML VIAL ONE (11:01)
[2020-02-09] MEDS ORDERED: EPHEDRINE 25 MG/5 ML SYRINGE ONE (11:01)
[2020-02-09] MEDS ORDERED: Phenylephrine 10 MG/ML VIAL ONE (11:06)
[2020-02-09] MEDS ORDERED: MEROPENEM 1 GM/50 ML 1 GM in Premix Bag 1 BAG IVPB SCH (11:30)
[2020-02-09] MEDS ORDERED: Lidocaine 1% w/Epinephrine 1:100K 20 ML VIAL ONE (11:46)
[2020-02-09] MEDS ORDERED: Bupivacaine 0.25% HCL 30 ML VIAL ONE (11:46)
[2020-02-09] MEDS ORDERED: Albumin 25% 100 ML ONE (12:10)
[2020-02-09] MEDS ORDERED: SUGAMMADEX SODIUM 500 MG/5 ML VIAL ONE (12:32)
[2020-02-09] MEDS ORDERED: Ondansetron HCl/PF 4 MG/2 ML Vial IVP PRN (12:54)
[2020-02-09] MEDS ORDERED: PACU-Morphine 4MG/ML VIAL SLOW IVP PRN (12:54)
[2020-02-09] MEDS ORDERED: Promethazine HCl 25 MG/ML VIAL SLOW IVP PRN (12:54)
[2020-02-09] MEDS ORDERED: Promethazine HCl 25 MG/ML VIAL IM PRN (12:54)
[2020-02-09] MEDS ORDERED: Morphine 4 MG/ML VIAL SLOW IVP PRN ×2 (14:43)
[2020-02-09] MEDS ORDERED: Morphine 2 MG/ML SYRINGE SLOW IVP PRN (14:43)
[2020-02-09] MEDS ORDERED: hydrALAZINE 20 MG/ML VIAL SLOW IVP PRN (14:43)
[2020-02-09] MEDS ORDERED: Ondansetron PF 4 MG/2 ML Vial IVP PRN (14:43)
[2020-02-09] MEDS ORDERED: Acetaminophen 500 MG TAB PO PRN (14:50)
[2020-02-09] MEDS ORDERED: Ondansetron ORAL SOLN. 4 MG/5 ML UDCUP PO PRN ×2 (14:50)
[2020-02-09] MEDS ORDERED: Ondansetron ODT 8 MG TAB PO PRN (14:51)
[2020-02-09] MEDS: Lactated Ringer's 1,000 ML IV SCH ×2 (16:12→22:16)
[2020-02-09] MEDS: traMADol HCl 50 MG TAB PO PRN (16:17)
[2020-02-09] MEDS: Ketorolac Tromethamine 30 MG/ML VIAL IVP SCH ×2 (18:01→23:47)
[2020-02-09] MEDS: Famotidine 20 MG TAB PO SCH (20:54)
[2020-02-09] MEDS: Enoxaparin Sodium 40 MG/0.4 ML SYRINGE SC SCH (20:54)
[2020-02-09] MEDS: Tamsulosin HCl 0.4 MG CAP PO SCH (20:54)
[2020-02-09] MEDS ORDERED: Famotidine/PF 20 mg/2ml Vial SLOW IVP SCH (21:00)
[2020-02-10] MEDS: traMADol HCl 50 MG TAB PO PRN ×4 (03:27→23:31)
[2020-02-10] MEDS: Ketorolac Tromethamine 30 MG/ML VIAL IVP SCH ×4 (05:30→23:13)
--- NOTE | 2020-02-10 07:17 | OP ---
DATE OF PROCEDURE: 02/09/2020 PREOPERATIVE DIAGNOSES: History of rectal cancer, status post colorectal resection with protective ileostomy and postoperative fecal peritonitis from enterotomy closure with ABThera, now with an end-ileostomy and undesired MediPort. POSTOPERATIVE DIAGNOSES: History of rectal cancer, status post colorectal resection with protective ileostomy and postoperative fecal peritonitis from enterotomy closure with ABThera, now with an end-ileostomy and undesired MediPort. PROCEDURES PERFORMED: Removal of MediPort and catheter, ileostomy reversal with adhesiolysis and small bowel resection and anastomosis, quarter-inch Chris drain. ANESTHESIA: General, TAP block local of 0.5% Marcaine 30 mL mixed with 2% Xylocaine with epinephrine 20 mL. DESCRIPTION OF PROCEDURE: The patient was taken to the operating room, where under general anesthesia, ileostomy site closed with continuous suture of 2-0 silk. Left shoulder was prepared with ChloraPrep. Abdomen prepared with Betadine and draped in routine fashion. Incision was made in the left chest and carried through skin and subcutaneous tissue at the old scar. MediPort catheter dissected free, excised. Subcutaneous tissue was approximated with 3-0 Monocryl, skin with subdermal 4-0 Monocryl. Local anesthetic infiltrated into the skin and subcutaneous tissue about the operative site. Incision was made around the old ileostomy site, carried down through skin and subcutaneous tissue and the ileostomy dissected free from the subcutaneous tissue and the fascia layers mobilized identifying the distal end of ileum for anastomosis, created with a staple technique with ROBINSON 75 staplers closing the common defect with another fire of the ROBINSON stapler after [place]t sutures of 3-0 silk placed. Anastomosis was reinforced with 3-0 silk and a good anastomosis was palpated. Mesenteric defect was closed with 3-0 silk. Gloves changed. Ileum reduced in the abdominal cavity. Posterior fascia was approximated with continuous suture of #1 PDS. Anterior fascia with continuous suture of #1 PDS. Skin and subcutaneous tissues were irrigated. Our gloves had been changed. Wound irrigated. Skin approximated with a pursestring suture of 3-0 Monocryl and a quarter-inch Chris drain placed, secured and dry dressings applied. The patient tolerated the procedure well. Job ID: [id number]
[2020-02-10] MEDS: Lactated Ringer's 1,000 ML IV SCH (08:43)
[2020-02-10] MEDS: Glimepiride 4 MG TAB PO SCH (08:44)
[2020-02-10] MEDS: Famotidine 20 MG TAB PO SCH ×3 (08:44→20:22)
[2020-02-10] MEDS ORDERED: ACETAMINOPHEN PO SCH (09:00)
[2020-02-10] MEDS ORDERED: CHLORPHENIRAMINE PO SCH (09:00)
[2020-02-10] MEDS ORDERED: Non-Formulary Item 1 EACH (Famotidine [Famotidine] 40 MG) PO SCH (09:00)
[2020-02-10] MEDS ORDERED: SIMETHICONE 125 MG PO SCH (09:00)
--- NOTE | 2020-02-10 09:26 | PRG ---
DATE OF SERVICE: 02/10/2020 SUBJECTIVE: Mr. Pérez is doing well after ileostomy reversal yesterday. MediPort was also removed. He is tolerating his full liquids well. He has not passed any gas or flatus. He has not had any nausea or vomiting. He desires diabetic diet at lunch which I have ordered. Laboratories not ordered, but we will order today postoperatively, although he is doing well. Bowel sounds are normal. OBJECTIVE: VITAL SIGNS: Temperature 98.2 degrees, heart rate 70, blood pressure 111/65. LUNGS: Clear to auscultation. CARDIAC: Regular rate and rhythm. No murmur or gallop. ABDOMEN: Soft, nontender. Mild tympany. Surgical sites look good. ASSESSMENT AND PLAN: Status post ileostomy reversal and Mediport removal, doing well. Anticipate discharge home tomorrow. Advance to a diabetic diet. Resume home medications. Oral analgesics. He has Chris drain around his wound, right lower quadrant, this will be removed prior to discharge. Job ID: [id number]
[2020-02-10] MEDS ORDERED: Simethicone Chewable 80 MG TAB PO SCH (09:45)
[2020-02-10 09:47] LABS: #Eosinphils 0.1 thou/uL (0.0-0.7); #Lymphocytes 1.7 thou/uL (1.20-3.40); #Monocytes 0.2 thou/uL (0.11-0.59); #Neutrophils 2.9 thou/uL (1.40-6.50); %Basophils 0.9 % (0.0-1.0); %Eosinophils 2.8 % (0.0-10.0); %Lymphocytes 34.3 % (21.0-51.0); %Monocytes 4.5 % (0.0-10.0); %Neutrophils 57.5 % (42.0-75.0); Hemoglobin 10.3 g/dL (14.0-18.0); Mean Corpuscular Hemoglobin 27.8 pg (27.0-31.0); Mean Corpuscular Volume 84.4 fL (78.0-98.0); Mean Platelet Volume 8.2 fL (7.4-10.4); Platelet Count 100 thou/uL (130-400)
[2020-02-10 09:57] LABS: Anion Gap 9 mmol/L (10-20); BUN (Urea Nitrogen) 18 mg/dL (8.4-25.7); Calc. Creatinine Clearance 56 mL/min (70-130); Calcium 8.5 mg/dL (7.8-10.44); Carbon Dioxide 21 mmol/L (23-31); Chloride 111 mmol/L (98-107); Estimated GFR-MDRD 54; Glucose 98 mg/dL (83-110); Potassium 3.8 mmol/L (3.5-5.1); Sodium 137 mmol/L (136-145)
[2020-02-10] MEDS: Polyethylene Glycol 3350 17 GM Packet PO SCH (10:00)
[2020-02-10 10:17] LABS: MDiff Complete? YES
--- NOTE | 2020-02-10 11:23 | PDOC.FMACP ---
Advance Care Planning - Problem (1) Palliative care encounter Status: Acute Code(s): Z51.5 - ENCOUNTER FOR PALLIATIVE CARE (2) Rectal cancer Status: Acute Code(s): C20 - MALIGNANT NEOPLASM OF RECTUM - Note Participants: patient, family, palliative care Summary: Advanced Care Planning was discussed. The diagnosis, prognosis and goals of care were discussed. Appropriate forms and documentation to accomplish the goals of care were discussed. All questions were answered. The Palliative Care Team will be engaged to assist with completion of any outstanding forms that are needed. Provided information in relation to Advanced directives, Directive to Physicians , and MPOA. Patient and confirmed that she, Mariaa Pérez, is MPOA. Allowed the opportunity to decline paperwork/information. At this time they do not wish to pursue completion of documentation, however will take the information home to discuss and address specific wishes in relation to resuscitation status and treatments paired with meaningful recovery. Time Spent (mins): 45
[2020-02-10] MEDS: Atorvastatin Calcium 10 MG TAB PO SCH (20:21)
[2020-02-10] MEDS: Simethicone Chewable 80 MG TAB PO SCH (20:21)
[2020-02-10] MEDS: Tamsulosin HCl 0.4 MG CAP PO SCH (20:21)
[2020-02-10] MEDS: Enoxaparin Sodium 40 MG/0.4 ML SYRINGE SC SCH (20:22)
[2020-02-10] MEDS ORDERED: Atorvastatin Calcium 10 MG TAB PO SCH (21:00)
[2020-02-11] MEDS: Ketorolac Tromethamine 30 MG/ML VIAL IVP SCH ×4 (05:24→22:46)
[2020-02-11] MEDS: Famotidine 20 MG TAB PO SCH ×2 (08:51→20:51)
[2020-02-11] MEDS: Glimepiride 4 MG TAB PO SCH (08:52)
[2020-02-11] MEDS: Simethicone Chewable 80 MG TAB PO SCH ×2 (08:52→20:51)
[2020-02-11] MEDS: Polyethylene Glycol 3350 17 GM Packet PO SCH (08:52)
--- NOTE | 2020-02-11 09:22 | PRG ---
DATE OF SERVICE: 02/11/2020 SUBJECTIVE: Mr. Pérez is doing well today. After ileostomy reversal, he is tolerating his full liquid diet and advanced to a regular diabetic diet. He is not having nausea or vomiting. He has not passed flatus or stool. His pain is under good control with oral analgesics. OBJECTIVE: LUNGS: Clear to auscultation. CARDIAC: Regular rate and rhythm. No murmur or gallop. ABDOMEN: Soft and nontender. Good bowel sounds. Dressing is dry. ASSESSMENT AND PLAN: Doing well. Plan removal of his Chris drain prior to discharge, probably later today. He has good activity level. Plan discharge home. Ultram p.r.n. pain. He has a prescription. Follow up my office in 2 to 3 weeks. Job ID: [id number]
[2020-02-11] MEDS: traMADol HCl 50 MG TAB PO PRN (15:43)
[2020-02-11] MEDS ORDERED: Ondansetron ODT 8 MG TAB SL PRN (20:45)
[2020-02-11] MEDS: Ondansetron ODT 4 MG TAB SL PRN (20:49)
[2020-02-11] MEDS: Tamsulosin HCl 0.4 MG CAP PO SCH (20:50)
[2020-02-11] MEDS: Atorvastatin Calcium 10 MG TAB PO SCH (20:50)
[2020-02-11] MEDS: Enoxaparin Sodium 40 MG/0.4 ML SYRINGE SC SCH (21:05)
[2020-02-11] MEDS: HumaLOG 300 UNITS/3 ML VIAL SC PRN (22:38)
[2020-02-12] MEDS: Ketorolac Tromethamine 30 MG/ML VIAL IVP SCH ×2 (06:49→10:59)
[2020-02-12] MEDS: Ondansetron ODT 4 MG TAB SL PRN (06:52)
[2020-02-12] MEDS: Polyethylene Glycol 3350 17 GM Packet PO SCH (08:23)
[2020-02-12] MEDS: Famotidine 20 MG TAB PO SCH (08:24)
[2020-02-12] MEDS: Simethicone Chewable 80 MG TAB PO SCH (08:24)
[2020-02-12] MEDS: Glimepiride 4 MG TAB PO SCH (08:25)
[2020-02-12] MEDS: HumaLOG 300 UNITS/3 ML VIAL SC PRN (11:00)
[2020-02-12 11:48] VITALS: BP 100/65; TEMP 97.7
[2020-02-12] MEDS ORDERED: Ibuprofen 600 MG TAB PO PRN (12:00)
--- NOTE | 2020-02-14 07:56 | DIS ---
DATE OF ADMISSION: 02/09/2020 DATE OF DISCHARGE: 02/12/2020 DISCHARGE DIAGNOSIS: Rectal cancer, status post colorectal resection with protective ileostomy, now undergoing ileostomy reversal. He has a right renal mass followed by Dr. Conrad, recently had a CAT scan, equivocally increased in size and has follow up with Dr. Conrad. He is followed by Dr. Murguia. Colorectal resection after neoadjunctive therapy, chemo and radiation therapy did not reveal any residual tumor. The patient is followed by Dr. Conrad and Dr. Murguia after discharge. This hospitalization, the patient underwent ileostomy reversal, and postoperatively, did well. He convalesced to resume bowel function. He has been discharged home to resume his home medications in addition to [id number] Tylenol, Motrin, and p.r.n. tramadol. He has a midline wound, is epithelializing, probably 1.5 cm x 0.5 cm that he is washing with soap and water and placing gauze dressing and/or Band-Aid antibiotic ointment. He has his ileostomy closure wound right lower quadrant. [place] drain removed prior to discharge, and he will keep a dry dressing or Band-Aid on this, and when there is no more drainage or soilage, he will leave it open. He will follow up with me in 2 to 3 weeks. Job ID: [id number]
== END 2020-02-12 13:32 | disposition home or self-care (01) | DRG 331 ==
LOC: SURG A 02-09 09:31 → SURG B 02-09 15:51
PROVIDERS: ADMIT Specialist; ATTEND Specialist
PROC: 0DBB0ZZ Excision of Ileum, Open Approach (ICD-10-PCS; principal; 2020-02-09)
PROC: 0JPT0WZ Removal of Totally Implantable Vascular Access Device from Trunk Subcutaneous Tissue and Fascia, Open Approach (ICD-10-PCS; 2020-02-09)
DX: Z43.2 Encounter for attention to ileostomy (principal); Z11.59 Encounter for screening for other viral diseases; Z51.5 Encounter for palliative care; Z85.048 Personal history of other malignant neoplasm of rectum, rectosigmoid junction, and anus; E11.9 Type 2 diabetes mellitus without complications; I10 Essential (primary) hypertension; N40.0 Benign prostatic hyperplasia without lower urinary tract symptoms
CPT/HCPCS: 36415; 36416; 71046; 74170; 80048; 82378; 83036; 85027; 87635; 93005; J0171; J0670; J1650; J1885; J2001; J2250; J2370; J2405; J2704; J3010; P9047; Q0162; Q9967; S0020; U0003

== ENCOUNTER 2020-07-31 12:37 | Outpatient (CLI) | payer MEDICARE, BC ==
[~2020-07-31 12:37] MED LIST changes: +Iopamidol 370 76% 100 ML VIAL ONE; -Iopamidol-370 76% 500 ML 1 ML ONE
--- NOTE | 2020-07-31 14:47 | CT ---
EXAM: CT chest, abdomen, and pelvis with IV contrast: HISTORY: Rectal cancer. Ileostomy reversal 2 months ago. COMPARISON: 07/23/[address] abdomen and pelvis on 02/07/2020 FINDINGS: CT THORAX: Lungs: Linear areas of scarring and/or atelectasis are seen in the left upper lobe as well as each lo wer lobe. No discrete pulmonary nodule or mass is seen. No filling defects are seen within the visualized large airways. Pleura: No pleural effusion. Lymph nodes: No enlarged lymph nodes are seen by CT size criteria. Mediastinum: Vascular calcifications are seen in the coronary arteries and in the thoracic aorta. Chest wall: No evidence of mild gynecomastia. Small circumscribed lucency with ill-defined and sclero tic margins is seen within the right aspect of the manubrium. This is unchanged compared to study in 2019 and has the appearance of a lesion of low biological activity. No additional suspicious lytic or sclerotic osseous lesions are seen. Degenerative changes are seen in the spine. Stable mild wedge-shaped compression fracture T8 vertebral body is again seen. Lucency in the inferior endplate o f the T6 vertebral body is likely related to a Schmorl's node. This is unchanged compared to study in 2019 CT ABDOMEN AND PELVIS: Liver: Within normal limits. Gallbladder: Within normal limits. \ Pancreas: Within normal limits. Spleen: Within normal limits. Adrenal glands: Within normal limits. Kidneys: Continued interval enlargement of a inferior pole right renal mass with largest dimension of 2.3 cm on study of 02/07/2020 and maximal dimension on current study is 2.6 cm. Lesion measured 1.7 cm on study in 2019. Subcentimeter too small to characterize hypodense lesion is seen in the inferior pole left kidney. Urinary Bladder: The urinary bladder is unremarkable. Reproductive organs: Surgical clips versus radiotherapy seeds region of the prostate gland. Bowel: Postoperative changes in the region of the rectum. There is diminished attenuation in a presac ral location which could be related to postoperative changes as well. Adenopathy:No enlarged lymph nodes are seen in the abdomen or pelvis by CT size criteria. Peritoneum: No free fluid or fluid collection is seen. No free intraperitoneal gas is identified. Abdominal wall: Small midline defect suggesting hernia. Postoperative changes of small bowel right an terolateral lower quadrant with overlying scarring in the subcutaneous soft tissues related to site of prior ileostomy. Osseous structures: Mild degenerative changes are seen in the lumbar spine. No suspicious lytic or sc lerotic osseous lesions are seen. Midline defects are seen involving the L5 vertebral body and sacrum likely developmental in origin. IMPRESSION: 1. Continued interval enlargement of a heterogeneously enhancing mass midportion right kidney worriso me for renal cell carcinoma. 2. No CT findings to suggest metastatic disease in the chest, abdomen, or pelvis. 3. Postoperative changes in the region of the rectum. There is decreased density and mild stranding s een in a presacral location posterior to the rectum which could be related to postoperative change. 4. Additional findings as above.
== END 2020-07-31 12:38 | disposition home or self-care (01) ==
LOC: BICCT 12:37
PROVIDERS: ATTEND Internal Medicine Hematology & Oncology
DX: C20 Malignant neoplasm of rectum (principal); N28.89 Other specified disorders of kidney and ureter; Z98.890 Other specified postprocedural states
CPT/HCPCS: 71260; 74177; Q9967

== ENCOUNTER 2020-08-28 12:17 | Outpatient (CLI) | payer MEDICARE, BC ==
--- NOTE | 2020-08-28 13:03 | ULT ---
US Renal Bilateral STANDARD History: Renal mass Comparison: Reference is made to a CT chest abdomen and pelvis July 31, 2020 Findings: Real-time grayscale and color evaluation of the kidneys and urinary bladder was performed. Right kidney measures 11.6 x 4.8 x 4.5 cm and the left kidney measures 12.1 x 5.5 x 5.8 cm. Urinary b ladder is unremarkable. Poor visualization of the known interpolar right renal mass. Impression: 1. Similar appearance of the right renal mass measuring up to 2.9 cm posterior cortex interpolar righ t kidney. 2. No obstructive uropathy.
== END 2020-08-28 12:18 | disposition home or self-care (01) ==
LOC: BICULT 12:17
PROVIDERS: ATTEND Urology
DX: N40.1 Benign prostatic hyperplasia with lower urinary tract symptoms (principal); R33.9 Retention of urine, unspecified; N28.89 Other specified disorders of kidney and ureter
CPT/HCPCS: 76770

== ENCOUNTER 2020-09-28 07:13 | Outpatient (CLI) | payer MEDICARE, BC ==
--- NOTE | 2020-09-28 07:50 | ULT ---
Sonogram right upper quadrant HISTORY: Upper abdomen pain. FINDINGS: Gallbladder has a normal appearance. Common duct is 0.4 cm. Liver unremarkable without focal mass or intrahepatic biliary dilatation. No free fluid. Of incidental note is a lobular mass like prominence of the medial aspect of the right kidney, correl ating with the exophytic mass detailed and better seen on CT exam from 07/31/2020. IMPRESSION : No acute abnormalities are demonstrated.
== END 2020-09-28 07:14 | disposition home or self-care (01) ==
LOC: BICULT 07:13
PROVIDERS: ATTEND Specialist
DX: R10.12 Left upper quadrant pain (principal)
CPT/HCPCS: 76705

== ENCOUNTER 2020-10-06 08:06 | Outpatient (CLI) | payer MEDICARE, BC | END 2020-10-06 08:07 | disposition home or self-care (01) | LOC: NM 08:06 | PROVIDERS: ATTEND Specialist | DX: R10.13 Epigastric pain (principal) | CPT/HCPCS: 78227; A9537 ==

== ENCOUNTER 2020-11-01 07:01 | Day surgery (SDC) | payer MEDICARE, BC ==
[2020-10-31 10:15] VITALS: BMI 25.4
[2020-11-01] MEDS ORDERED: Bupivacaine 0.25% HCL 30 ML VIAL ONE (07:58)
[2020-11-01] MEDS ORDERED: Lidocaine 1% w/Epinephrine 1:100K 20 ML VIAL ONE (07:58)
[2020-11-01] MEDS ORDERED: Ketorolac Tromethamine 30 MG/ML VIAL ONE (08:00)
[2020-11-01] MEDS ORDERED: Acetaminophen 500 MG TAB ONE (08:00)
[2020-11-01] MEDS ORDERED: PHENYLEPHRINE-NS 100 MCG/ML 10 ML SYRINGE ONE (09:22)
[2020-11-01] MEDS ORDERED: Lidocaine 1% PF 5 ML VIAL ONE (09:22)
[2020-11-01] MEDS ORDERED: Dexamethasone 20 MG/5 ML VIAL ONE (09:22)
[2020-11-01] MEDS ORDERED: PROPOFOL 200 MG/20 ML VIAL ONE (09:22)
[2020-11-01] MEDS ORDERED: Glycopyrrolate 0.2 MG/ML 5 ML SYRINGE ONE (09:22)
[2020-11-01] MEDS ORDERED: Ondansetron PF 4 MG/2 ML Vial ONE (09:22)
[2020-11-01] MEDS ORDERED: Rocuronium Bromide 10 MG/ML (10ML VIAL) ONE (09:22)
[2020-11-01] MEDS ORDERED: Fentanyl 100 MCG/2 ML VIAL ONE (09:39)
--- NOTE | 2020-11-01 13:08 | OP ---
DATE OF PROCEDURE: 11/01/2020 PREOPERATIVE DIAGNOSES: Incisional hernia, adhesions from prior surgery. POSTOPERATIVE DIAGNOSES: Incisional hernia, adhesions from prior surgery. PROCEDURES PERFORMED: Laparoscopic/robotic adhesiolysis and Ventralight 9 cm diameter mesh, reinforcement of primary fascial closure incisional hernia, supraumbilical midline incision. ANESTHESIA: General, local 0.5% Marcaine 30 mL mixed with 1% Xylocaine with epinephrine 20 mL, total volume used. DESCRIPTION OF PROCEDURE: The patient was taken to the operating room, where under general anesthesia, Voss catheter placed at the beginning of procedure, removed at the end. Abdomen was prepared with ChloraPrep and draped in routine fashion. Local anesthetic was infiltrated into skin and subcutaneous tissue about all port sites. Left subxiphoid incision made and pneumoperitoneum to 15 mmHg obtained with a Veress needle, replaced with a robot 8 port. Robot, scope inserted and there were adhesions in the midline. Right lateral subcostal incision was made medially and laterally. An 8 mm port and a 5 mm port placed. This allowed adhesiolysis laparoscopically freeing adhesions around this upper abdomen area and the left upper quadrant to allow placement of another 8 mm port left lateral. The left subxiphoid 8 mm port was replaced with an 11 mm robot port. Robot was docked. Adhesiolysis robotically undertaken with cold scissors and blunt dissection, freed adhesions, freeing the incisional hernia defect supraumbilical, which was about 3 to 3.5 cm in diameter. This was cleared of adhesions. There were some adhesions that were cleared the right and left, mid-abdomen laterally. I cleared enough of omental and small-bowel adhesions to allow placement of a mesh. Pneumoperitoneum reduced to fascial defect closed with continuous to-and-fro sutures, #1 V-Loc suture. Once this was completed and a good closure appreciated, the mesh was secured to reinforce the fascial approximation approximating the mesh with remaining length of suture #1 V-Loc. #2-0 V-Loc suture was then used to circumferentially secure the mesh to the abdominal wall. Good hemostasis noted. The area inspected, noted to be without problems. Pneumoperitoneum reduced. All instruments removed, and fascia approximated with #0 Vicryl suture on a UR needle. Skin approximated with 4-0 Monocryl subdermal. [place] glue applied. Local anesthetic infiltrated about the wounds and operative site. The patient tolerated the procedure well. Job ID: [id number]
[2020-11-01] MEDS ORDERED: HYDROcodone/Acetaminophen 5/325 mg Tablet ONE (15:19)
== END 2020-11-01 15:30 | disposition home or self-care (01) ==
LOC: SDC 07:01
PROVIDERS: ATTEND Specialist
PROC: 0WUF4JZ Supplement Abdominal Wall with Synthetic Substitute, Percutaneous Endoscopic Approach (ICD-10-PCS; principal; 2020-11-01)
DX: K43.2 Incisional hernia without obstruction or gangrene (principal); K66.0 Peritoneal adhesions (postprocedural) (postinfection); Z79.84 Long term (current) use of oral hypoglycemic drugs; Z79.899 Other long term (current) drug therapy; Z90.49 Acquired absence of other specified parts of digestive tract
CPT/HCPCS: C1781; J0690; J1100; J1885; J2405; J2704; J3010; S0020

== ENCOUNTER 2021-03-02 11:50 | Outpatient (CLI) | payer MEDICARE, BC ==
[2020-10-30 16:02] LABS: #Eosinphils 0.1 10x3/uL (0.0-0.5); #Monocytes 0.4 10x3/uL (0.0-1.1); #Neutrophils 2.6 10x3/uL (1.5-8.4); %Basophils 0.5 % (0.0-2.0); %Eosinophils 1.1 % (0.0-6.0); %Lymphocytes 58.4 % (18.0-47.0); %Monocytes 4.9 % (0.0-10.0); %Neutrophils 34.8 % (40.0-75.0); Hemoglobin 13.4 g/dL (13.5-17.5); Mean Corpuscular HGB CONC 32.4 g/dL (32.0-36.0); Mean Corpuscular Hemoglobin 27.6 pg (27.0-33.0); Mean Corpuscular Volume 85.4 fl (81.2-95.1); Mean Platelet Volume 9.7 fl (7.4-10.4); Platelet Count 159 10x3/uL (150-450); RBC Distribution Width 13.6 % (11.5-14.5); Red Blood Cell (RBC) Count 4.85 10x6/uL (4.32-5.72); White Blood Cell (WBC) Count 7.4 10x3/uL (3.5-10.5)
[2020-10-30 16:18] LABS: Anion Gap 15 mmol/L (10-20); BUN (Urea Nitrogen) 36 mg/dL (8.4-25.7); Calc. Creatinine Clearance 0 mL/min (70-130); Carbon Dioxide 27 mmol/L (23-31); Chloride 102 mmol/L (98-107); Glucose 138 mg/dL (83-110); Potassium 4.5 mmol/L (3.5-5.1); Sodium 139 mmol/L (136-145)
[2020-10-31 03:44] LABS: SARS-CoV-2 PCR by NAA Not Detected (NotDetected)
[2021-01-30 14:51] LABS: #Monocytes 0.2 10x3/uL (0.0-1.1); #Neutrophils 3.6 10x3/uL (1.5-8.4); %Basophils 0.5 % (0.0-2.0); %Eosinophils 0.6 % (0.0-6.0); %Lymphocytes 37.7 % (18.0-47.0); %Monocytes 3.5 % (0.0-10.0); %Neutrophils 57.4 % (40.0-75.0); Hemoglobin 11.8 g/dL (13.5-17.5); Mean Corpuscular HGB CONC 31.8 g/dL (32.0-36.0); Mean Corpuscular Volume 88.1 fl (81.2-95.1); Mean Platelet Volume 9.6 fl (7.4-10.4); Platelet Count 139 10x3/uL (150-450); RBC Distribution Width 14.3 % (11.5-14.5); Red Blood Cell (RBC) Count 4.21 10x6/uL (4.32-5.72); White Blood Cell (WBC) Count 6.3 10x3/uL (3.5-10.5)
[2021-01-30 15:00] LABS: Anion Gap 14 mmol/L (10-20); BUN (Urea Nitrogen) 18 mg/dL (8.4-25.7); Calc. Creatinine Clearance 0 mL/min (70-130); Calcium 9.8 mg/dL (7.8-10.44); Carbon Dioxide 26 mmol/L (23-31); Chloride 105 mmol/L (98-107); Glucose 181 mg/dL (83-110); Potassium 4.1 mmol/L (3.5-5.1); Sodium 141 mmol/L (136-145)
[2021-01-31 00:34] LABS: SARS-CoV-2 PCR by NAA Not Detected (NotDetected)
[2021-03-02 14:17] LABS: Hemoglobin 13.1 g/dL (13.5-17.5); Mean Corpuscular HGB CONC 32.4 g/dL (32.0-36.0); Mean Corpuscular Hemoglobin 28.2 pg (27.0-33.0); Mean Corpuscular Volume 87.1 fl (81.2-95.1); Mean Platelet Volume 9.8 fl (7.4-10.4); Platelet Count 155 10x3/uL (150-450); RBC Distribution Width 13.8 % (11.5-14.5); Red Blood Cell (RBC) Count 4.64 10x6/uL (4.32-5.72); White Blood Cell (WBC) Count 6.4 10x3/uL (3.5-10.5)
[2021-03-02 14:41] LABS: Anion Gap 13 mmol/L (10-20); BUN (Urea Nitrogen) 24 mg/dL (8.4-25.7); Calc. Creatinine Clearance 0 mL/min (70-130); Carbon Dioxide 26 mmol/L (23-31); Chloride 104 mmol/L (98-107); Glucose 125 mg/dL (83-110); Potassium 4.1 mmol/L (3.5-5.1); Sodium 139 mmol/L (136-145)
[2021-03-02 15:13] LABS: Lymphocytes 64 % (21-51); Monocytes 2 % (0-10)
[2021-03-02 15:47] LABS: Neutrophil 34 % (42-75); RBC Morphology Normal
[2021-03-02 15:50] LABS: MDiff Complete? YES
== END 2021-03-02 11:51 | disposition home or self-care (01) ==
LOC: LABBT 11:50
PROVIDERS: ATTEND Specialist
DX: Z01.818 Encounter for other preprocedural examination (principal); K43.2 Incisional hernia without obstruction or gangrene; Z20.822 Contact with and (suspected) exposure to COVID-19; Z87.19 Personal history of other diseases of the digestive system; Z98.890 Other specified postprocedural states
CPT/HCPCS: 71046; 80048 ×3; 85025 ×3; 93005 ×2; U0003 ×2; U0005 ×2; 93010

== ENCOUNTER 2021-03-07 05:52 | Day surgery (SDC) | payer MEDICARE, BC ==
[2021-03-06 09:27] VITALS: BMI 24.9
[2021-03-07] MEDS ORDERED: Gabapentin 300 MG CAP ONE (06:22)
[2021-03-07] MEDS ORDERED: Acetaminophen 500 MG TAB ONE (06:22)
[2021-03-07] MEDS ORDERED: Ketorolac Tromethamine 30 MG/ML VIAL ONE (06:22)
[2021-03-07] MEDS ORDERED: Lidocaine 1% w/Epinephrine 1:100K 20 ML VIAL ONE (06:37)
[2021-03-07] MEDS ORDERED: Bupivacaine 0.25% HCL 30 ML VIAL ONE (06:37)
[2021-03-07] MEDS ORDERED: Fentanyl 100 MCG/2 ML VIAL ONE ×2 (06:41→10:28)
[2021-03-07] MEDS ORDERED: ePHEDrine Sulfate 50 MG/10 ML VIAL ONE (07:41)
[2021-03-07] MEDS ORDERED: PHENYLEPHRINE-NS 100 MCG/ML 10 ML SYRINGE ONE (07:41)
[2021-03-07] MEDS ORDERED: Ondansetron PF 4 MG/2 ML Vial ONE (07:41)
[2021-03-07] MEDS ORDERED: PROPOFOL 200 MG/20 ML VIAL ONE (07:41)
[2021-03-07] MEDS ORDERED: Lidocaine 1% PF 5 ML VIAL ONE (07:41)
[2021-03-07] MEDS ORDERED: Glycopyrrolate 0.2 MG/ML 5 ML SYRINGE ONE (07:41)
[2021-03-07] MEDS ORDERED: Rocuronium Bromide 10 MG/ML (10ML VIAL) ONE (07:41)
[2021-03-07] MEDS ORDERED: Dexamethasone 20 MG/5 ML VIAL ONE (07:41)
[2021-03-07] MEDS ORDERED: Morphine 2 MG/ML VIAL ONE (11:39)
[2021-03-07] MEDS ORDERED: HYDROcodone/Acetaminophen 5/325 mg Tablet ONE (12:10)
== END 2021-03-07 14:00 | disposition home or self-care (01) ==
LOC: SDC 05:52
PROVIDERS: ATTEND Specialist
PROC: 0WUF4JZ Supplement Abdominal Wall with Synthetic Substitute, Percutaneous Endoscopic Approach (ICD-10-PCS; principal; 2021-03-07)
PROC: 0DQ84ZZ Repair Small Intestine, Percutaneous Endoscopic Approach (ICD-10-PCS; 2021-03-07)
DX: K43.2 Incisional hernia without obstruction or gangrene (principal); K66.0 Peritoneal adhesions (postprocedural) (postinfection); K91.71 Accidental puncture and laceration of a digestive system organ or structure during a digestive system procedure; E11.9 Type 2 diabetes mellitus without complications; E78.5 Hyperlipidemia, unspecified; M19.90 Unspecified osteoarthritis, unspecified site; Z93.3 Colostomy status; Z93.2 Ileostomy status; Z98.890 Other specified postprocedural states; Z87.19 Personal history of other diseases of the digestive system; Z79.84 Long term (current) use of oral hypoglycemic drugs; Z79.899 Other long term (current) drug therapy; Z85.048 Personal history of other malignant neoplasm of rectum, rectosigmoid junction, and anus; Y65.8 Other specified misadventures during surgical and medical care; Y73.3 Surgical instruments, materials and gastroenterology and urology devices (including sutures) associated with adverse incidents
CPT/HCPCS: 49654; 44799; C1781; J2270; J0690; J1100; J1885; J2405; J2704; J3010; S0020

== ENCOUNTER 2021-03-28 09:38 | Outpatient (CLI) | payer MEDICARE, BC | END 2021-03-28 09:39 | disposition home or self-care (01) | LOC: CT 09:38 | PROVIDERS: ATTEND Internal Medicine Cardiovascular Disease | DX: R06.02 Shortness of breath (principal) | CPT/HCPCS: 71275; 82565; Q9967 ==

== ENCOUNTER 2021-04-26 10:08 | Outpatient (CLI) | payer MEDICARE, BC ==
[2021-04-26 23:40] LABS: SARS-CoV-2 PCR by NAA Not Detected (NotDetected)
== END 2021-04-26 10:09 | disposition home or self-care (01) ==
LOC: LABBT 10:08
PROVIDERS: ATTEND Urology
DX: Z01.812 Encounter for preprocedural laboratory examination (principal); Z20.822 Contact with and (suspected) exposure to COVID-19
CPT/HCPCS: U0003; U0005

== ENCOUNTER 2021-06-13 10:42 | Outpatient (CLI) | payer MEDICARE, BC ==
[2021-06-13] MEDS ORDERED: Iopamidol-370 76% 500 ML 1 ML ONE (11:09)
== END 2021-06-13 10:43 | disposition home or self-care (01) ==
LOC: BICCT 10:42
PROVIDERS: ATTEND Urology
DX: N28.89 Other specified disorders of kidney and ureter (principal); K80.20 Calculus of gallbladder without cholecystitis without obstruction
CPT/HCPCS: 74170; 82565; Q9967

== ENCOUNTER 2021-09-03 10:26 | Outpatient (CLI) | payer MEDICARE, BC | END 2021-09-03 10:27 | disposition home or self-care (01) | LOC: BICCT 10:26 | PROVIDERS: ATTEND Internal Medicine Hematology & Oncology | DX: C20 Malignant neoplasm of rectum (principal); D50.0 Iron deficiency anemia secondary to blood loss (chronic); E83.52 Hypercalcemia; I26.99 Other pulmonary embolism without acute cor pulmonale; N28.89 Other specified disorders of kidney and ureter; Z98.890 Other specified postprocedural states; K80.20 Calculus of gallbladder without cholecystitis without obstruction | CPT/HCPCS: 71260; 74177; 82565 ==

== ENCOUNTER 2022-02-18 10:20 | Outpatient (CLI) | payer MEDICARE, BC ==
[~2022-02-18 10:20] MED LIST changes: -Iopamidol 370 76% 100 ML VIAL ONE; +Iopamidol-370 76% 500 ML 1 ML ONE
== END 2022-02-18 10:21 | disposition home or self-care (01) ==
LOC: BICCT 10:20
PROVIDERS: ATTEND Internal Medicine Hematology & Oncology
DX: C20 Malignant neoplasm of rectum (principal); I26.99 Other pulmonary embolism without acute cor pulmonale; D50.0 Iron deficiency anemia secondary to blood loss (chronic); E83.52 Hypercalcemia
CPT/HCPCS: 71260; 74177; 82565; Q9967

== ENCOUNTER 2022-08-06 10:50 | Outpatient (CLI) | payer MEDICARE, BC ==
[2022-08-06] MEDS ORDERED: Iopamidol 370 76% 100 ML VIAL ONE (11:13)
== END 2022-08-06 10:51 | disposition home or self-care (01) ==
LOC: CT 10:50
PROVIDERS: ATTEND Internal Medicine Hematology & Oncology
DX: C20 Malignant neoplasm of rectum (principal); C64.9 Malignant neoplasm of unspecified kidney, except renal pelvis; I10 Essential (primary) hypertension; E11.9 Type 2 diabetes mellitus without complications; K80.20 Calculus of gallbladder without cholecystitis without obstruction
CPT/HCPCS: 71260; 74177; 82565; Q9967

== ENCOUNTER 2023-08-05 12:26 | Outpatient (CLI) | payer MEDICARE, BC | END 2023-08-05 12:27 | disposition home or self-care (01) | LOC: CT 12:26 | PROVIDERS: ATTEND Internal Medicine Hematology & Oncology | DX: C20 Malignant neoplasm of rectum (principal); R91.1 Solitary pulmonary nodule; Z98.890 Other specified postprocedural states | CPT/HCPCS: 71260; 74177; 82565 ==

== ENCOUNTER 2024-08-12 09:31 | Outpatient (CLI) | payer MEDICARE | END 2024-08-12 09:32 | disposition home or self-care (01) | LOC: BICCT 09:31 | PROVIDERS: ATTEND Internal Medicine Hematology & Oncology | DX: C20 Malignant neoplasm of rectum (principal); C64.9 Malignant neoplasm of unspecified kidney, except renal pelvis; J18.0 Bronchopneumonia, unspecified organism | CPT/HCPCS: 71260; 74177 ==

== ENCOUNTER 2024-09-29 12:58 | Outpatient (CLI) | payer MEDICARE, BC | END 2024-09-29 12:59 | disposition home or self-care (01) | LOC: BICCT 12:58 | PROVIDERS: ATTEND Internal Medicine Hematology & Oncology | DX: C20 Malignant neoplasm of rectum (principal); D50.0 Iron deficiency anemia secondary to blood loss (chronic); E83.52 Hypercalcemia; I26.99 Other pulmonary embolism without acute cor pulmonale | CPT/HCPCS: 71250 ==